=== PATIENT | female | born 1955 | race Caucasian/White ===

== ENCOUNTER 2022-02-11 11:18 | Outpatient (CLI) | payer BC, SELFPAY ==
[2022-02-11 14:20] LABS: C.Difficile Negative (Negative); CDIFFEPI 027 PRESUMPTIVE NEGATIVE (Negative)
--- OUTSIDE RECORDS SUMMARY | 2022-03-05 14:43 | XMS_ITS | Encounter Summary ---
:1955 Author Organization [facility] Address [address] [place] [address] Care Team Providers Name Role Phone Elsewhere, Pcp Primary Care Provider Unavailable Reason for Referral Outpatient (Routine) - Authorized Specialty Diagnoses / Procedures Referred By Contact Refer red To Contact Diagnoses Rhinitis Allergic Rob Mata, [facility] Procedures Northern Skin Test DenisseBSandraBSandraSSandra, Ph.D. [address] [place] [address] Referral ID Status Reason Start Date Expiration Date Visits V isits Requested Authorized [id number] Authorized 02/04/2022 02/04/2023 1 1 utpatient (Routine) - Authorized Specialty Diagnoses / Procedures Referred By Contact Refer red To Contact Diagnoses Rhinitis Allergic Rob Mata [facility] Procedures Basic Skin Test M.BSandraBSandraS., Ph.D. [address] [place] [phone] Referral ID Status Reason Start Date Expiration Date Visits V isits Requested Authorized [id number] Authorized 02/04/2022 02/04/2023 1 1 utpatient (Routine) - Authorized Specialty Diagnoses / Procedures Referred By Contact Refer red To Contact Diagnoses Rhinitis Allergic Rob Mata, [place] Procedures Spirometry Travis, Ph.D. [address] [place] [phone] Referral ID Status Reason Start Date Expiration Date Visits V isits Requested Authorized [id number] Authorized 02/04/2022 02/04/2023 1 1 Reason for Visit Appointment Request (Routine) - Closed Specialty Diagnoses / Procedures Referred By Contact Refer red To Contact Allergy and Immunology Diagnoses Asthma (HCC) Rob Mata M.B.BSandraS., Ph.D. [address] [place] [phone] Referral ID Status Reason Start Date Expiration Date Visits Requ ested Visits Authorized [id number] Closed 01/02/2022 01/02/2023 1 1 Encounter Details Date Type Department Care Team Description 02/04/2022 Telemedicine Division of Allergic Rob Mata, initis Allergic (Primary Dx); Diseases in [place], Travis, Ph.D. Asthma Mild Persistent (HCC) [address] [phone] Social History Tobacco Use Types Packs/Day Years Used Date Smoking Tobacco: Former Cigarettes 0.3 20 12/1973 - 07/28/1995 Smokeless Tobacco: Never Alcohol Use Standard Drinks/Week Comments Yes 0 (1 standard drink = 0.6 oz pure alcoho l) Alcohol Habits Answer Date Recorded How often do you have a drink containing alcohol? Monthly or less 02/04/2022 How many drinks containing alcohol do you have on a 1 or 2 02/04/2022 typical day when you are drinking? How often do you have six or more drinks on one Never 02/04/2022 occasion? Comment: Not asked Social Isolation Answer Date Recorded In a typical week, how many times do you More than three guido es a week 02/04/2022 talk on the phone with family, friends, or neighbors? How often do you get together with friends Twice a week 02/04/2022 or relatives? How often do you attend mosque or More than 4 times per year 02/04/2022 mormonism services? Do you belong to any clubs or Yes 02/04/2022 organizations such as mosque groups, unions, fraEntrisphere or athletic groups, or school groups? How often do you attend meetings of the More than 4 times pe r year 02/04/2022 clubs or organizations you belong to? Are you now , , , 02/04/2022 , never or living with a partner? Physical Activity Answer Date Recorded On average, how many days per week do you engage in moderate to 2 days 02/04/2022 strenuous exercise (like walking fast, running, jogging, dancing, swimming, biking, or other activities that cause a light or heavy sweat)? On average, how many minutes do you engage in exercise at th is 60 min 02/04/2022 level? Stress Answer Date Recorded Do you feel stress - tense, restless, nervous, or Only a lit tle 02/04/2022 anxious, or unable to sleep at night because your mind is troubled all the time - these days? Financial Resource Strain Answer Date Recorded How hard is it for you to pay for the very basics like Not h april at all 02/04/2022 food, housing, medical care, and heating? Intimate Partner Violence Answer Date Recorded Within the last year, have you been afraid of your partner o r No 02/04/2022 ex-partner? Within the last year, have you been humiliated or emotionall y No 02/04/2022 abused in other ways by your partner or ex-partner? Within the last year, have you been kicked, hit, slapped, or No 02/04/2022 otherwise physically hurt by your partner or ex-partner? Within the last year, have you been raped or forced to have any No 02/04/2022 kind of sexual activity by your partner or ex-partner? Food Insecurity Answer Date Recorded Within the past 12 months, you worried that your food would Never true 02/04/2022 run out before you got money to buy more. Within the past 12 months, the food you bought just didn't N ever true 02/04/2022 last and you didn't have money to get more. Transportation Needs Answer Date Recorded In the past 12 months, has lack of transportation kept you f rom No 02/04/2022 medical appointments or from getting medications? In the past 12 months, has lack of transportation kept you f rom No 02/04/2022 meetings, work, or getting things needed for daily living? Housing Stability Answer Date Recorded In the last 12 months, was there a time when you were not ab le No 02/04/2022 to pay the mortgage or rent on time? In the last 12 months, how many places have you lived? 1 02/04/2022 In the last 12 months, was there a time when you did not hav e a No 02/04/[address] or slept in a chcf (including now)? Education Answer Date Recorded What is the highest level of school you have Some college, n o degree 03/09/2019 completed or the highest degree you have received? Sex Assigned at Date Recorded Female 02/04/2022 1:44 PM CDT documented as of this encounter Progress Notes Rob Mata M.B.BSandraS., Ph.D. - 02/04/2022 2:30 PM CDT CC; follow up HPI: Ms. Gonzalez is a very pleasant 66-year-old woman who has been followed by us for allergies andasthma. She was scheduled to see me in person obtain a spirometry today however she has come down with a norovirus infection and therefore this visit was changed to a video visit. Norovirus infection at present. she has 2 grandchildren, who are not sick. She reports no issues over the past year with regards asthma. Last month she had tough time with her allergies, sinus infection and was travelling at the time. [place] she felt better. Sinus infection was set in .She has had skin test done 22 years ago, she was positive for dog, dust mite, horse, mold, walnut and short ragweed. I have seen and discussed with .Ning Gonzalez her visit today. The impression, report, and plan were made in agreement with , and myself. #1 Asthma Mild Persistent (HCC) #2 Rhinitis Allergic - Spirometry; Future; Expected date: 02/04/2022 - Basic Skin Test; Future; Expected date: 02/04/2022 - Northern Skin Test; Future; Expected date: 02/04/2022 Other orders - budesonide-formoteroL (Symbicort) 160-4.5 mcg/actuation inhaler; Inhale 1 puff daily. Rinse mouth with water after use to reduce aftertaste and incidence of candidiasis. Do not swallow., Starting Fri02/04/2022, Normal 1. We discussed the results of her spirometry that where available to us as of last year. I think she would benefit from of new skin test to basic and Northern panel and spirometry which I have reordered. She was supposed to get it done today but she canceled it because of her norovirus infection. 2. We will continue with Symbicort 160-4.51 puff daily, 3. In episodes were she has worsening symptoms especially when she is exposed to respiratory irritants, she can increase the dose of her Symbicort 1 puff 2 times a day. 4. Along with this I recommend that she consider topical saline irrigations, 5. Continue with Flonase 2 sprays in each nostril once a day. 6. Also discussed with her the Rhinix nasal filters which she could implement if she is anticipatingincreased allergen exposure. Duration of visit was 30 minutes. Consult conducted via real-time audio/video technology by Senthil Mercado., Ph.D. in [facility] to the Ms. Gonzalez in [facility] [id number] documented in this encounter Plan of Treatment Scheduled Orders Name Type Priority Associated Diagnoses Order S chedule Spirometry PFT Routine Rhinitis Allergic Expected: 02/04/2022 (Approximate), Expires: 05/07/2023 Basic Skin Test Procedures Routine Rhinitis Allergic Expecte d: 02/04/2022 (Approximate), Expires: 05/07/2023 Northern Skin Test Procedures Routine Rhinitis Allergic Expe cted: 02/04/2022 (Approximate), Expires: 05/07/2023 documented as of this encounter Visit Diagnoses Diagnosis Rhinitis Allergic - Primary Asthma Mild Persistent (HCC) documented in this encounter Care Teams Gas Station Supervisor Relationship Specialty Start Date End Date Elsewhere, Pcp PCP - General Internal Medicine 01/31/22 documented as of this encounter
--- OUTSIDE RECORDS SUMMARY | 2022-03-05 14:43 | XMS_ITS | Clinical Summary ---
:1955 Author Organization [facility] Address [address] [place] [address] Care Team Providers Name Role Phone Elsewhere, Pcp Primary Care Provider Unavailable Source Comments Patient records contain information from all sites at [facility]. For routine questions regarding patient records, call [phone] during business hours, M-F 8:00 AM - 5:00 PM Central Time. Record requests for emergency care only can be directed to [phone] at any time.[facility] Allergies Active Allergy Reactions Severity Noted Date Comments Sulfa (Sulfonamide Antibiotics) Hives 3 Medications Medication Sig Dispensed Refills Start End Date Status Date fexofenadine Take 1 tablet 0 Act rosa (WYATT) 180 mg by mouth daily. 3 tablet olopatadine 1 drop as 0 Active (PATANOL) 0.1 % needed. 3 ophthalmic solution SUMAtriptan Take 50 mg by 0 Acti ve (IMITREX) 50 mg mouth as needed tablet for migraine. May repeat in 2 hours if no relief. Max 2 doses/24 hrs albuterol Inhale as 0 Active (PROVENTIL needed for HFA,VENTOLIN HFA) wheezing. 90 mcg/actuation inhaler nitrofurantoin Take 100 mg by 0 Active monohydrate mouth as 0 (MACROBID) 100 mg directed. capsule albuterol Inhale 1-2 1 Inhaler 11 Active inhalerIndications: puffs every 4 0 Asthma Mild (four) hours as Persistent (HCC) needed for wheezing or shortness of breath. fluticasone INHALE 2 SPRAYS 48 g 3 Ac tive propionate IN EACH NOSTRIL 2 (FLONASE) 50 DAILY mcg/actuation nasal sprayIndications: Rhinitis Allergic budesonide-formoter Inhale 1 puff 30.6 g 3 Active oL (Symbicort) daily. Rinse 2 160-4.5 mouth with mcg/actuation water after use inhalerIndications: to reduce Asthma Mild aftertaste and Persistent (HCC), incidence of Rhinitis Allergic candidiasis. Do not swallow. estradiol 0 02/01/20 Discontinu ed (VIVELLE-DOT) 0.075 9 22 mg/24 hr patch progesterone 0 02/01/20 Discont inued (PROMETRIUM) 100 mg 9 22 capsule ciprofloxacin Take 500 mg by 0 02/01/20 D iscontinued (CIPRO) 500 mg mouth as 0 22 tablet directed. fluticasone Inhale 2 puffs 3 Inhaler 3 02/01/20 Dis continued propionate (Flovent 2 (two) times a 1 22 HFA) 110 day. Rinse mcg/actuation mouth with inhalerIndications: water after use Asthma Chronic to reduce (HCC) aftertaste and incidence of candidiasis. Do not swallow. Symbicort 160-4.5 INHALE 1 PUFF 30.6 g 3 02/05/20 Discontinued mcg/actuation BY MOUTH DAILY. 1 22 (Reorder) inhalerIndications: RINSE MOUTH Asthma Mild WITH WATER Persistent (HCC) AFTER. DO NOT SWALLOW Active Problems Problem Noted Date Asthma Intrinsic 11/18/2008 Overview: Asthma Non Allergic Intrinsic Encounters Date Type Specialty Care Team Description 02/04/2022 Telemedicine Allergy and [facility], Rhinitis Allerg ic (Primary Dx); Immunology Rob D, Asthma Mild Per sistent (HCC) Travis, Ph.D. 01/31/2022 Clinical Communication Admitting/Central Pre-visit Intake Scheduling 01/31/2022 Lab Laboratory [facility], Encounter For P reprocedural Laboratory Examination (COVID-19); Medicine Rob Alfaro, Contact With An d (Suspected) Exposure To COVID-19 Travis, Ph.D. 01/02/2022 Clinical Communication Allergy and [facility], Pre-v isit Testing Immunology Rob Alfaro, Orders MBarbara, Ph.D. 01/02/2022 Refill Allergy and [facility], Med Refill Immunology Rob Alfaro, M.B.B.S., Ph.D. from Last 3 Months Immunizations Name Administration Dates Next Due YF, Unspecified 07/29/2008 Family History Medical History Relation Name Comments Asthma Father kina montero Coronary artery disease Father kina montero Rheum arthritis Father kina montero Anesthesia problems Mother jelani cole Colon polyps Mother jelani cole Hyperlipidemia Mother jelani cole Colon cancer Mother's Brother patricia gilliam ADD Son daria gonzalez Relation Name Status Comments Father ikna montero Mother jelani cole Mother's Brother patricia gilliam Son daria gonzalez Social History Tobacco Use Types Packs/Day Years [...] or relatives? How often do you attend sabianism or More than 4 times per year 02/04/2022 mandaen services? Do you belong to any clubs or Yes 02/04/2022 organizations such as sabianism groups, unions, fraternal or athletic groups, or school groups? How [...] minutes do you engage in exercise at is 60 min 02/04/2022 level? Stress Answer [...] place to sleep or slept in a snf (including now)? Education Answer Date Recorded What is the highest level of school you have Some college, n o degree 03/09/2019 completed or the highest degree you have received? Sex Assigned at Date Recorded Female 02/04/2022 1:44 PM CDT Last Filed Vital Signs Vital Sign Reading Time Taken Comments Blood Pressure 112/72 03/09/2019 9:45 AM CDT Pulse 81 03/09/2019 9:45 AM CDT Temperature 36.9 ??C (98.4 ??F) 02/06/2021 2:29 PM CDT Respiratory Rate - - Oxygen Saturation - - Inhaled Oxygen Concentration - - Weight 66.3 kg (146 lb 2.6 oz) 02/06/2021 1:48 PM CDT Height 158.9 cm (5' 2.56) 02/06/2021 1:48 PM CDT Body Mass Index 26.26 02/06/2021 1:48 PM CDT Plan of Treatment Health Maintenance Due Date Last Done Comments CT Colonography 1955 Cervical Cancer Screening 1955 Cologuard 1955 Colonoscopy 1955 Colorectal Cancer Surveillance 1955 Fasting Glucose for Diabetes 1955 Screening Fasting Lipid Panel 1955 HIV Screening 1955 Hepatitis C Screening 1955 Mammogram 1955 Pneumococcal vaccine (0-64 years) 10/16/1963 (1 - PCV) Zoster Vaccines (1 of 2) 10/16/2007 DTaP,Tdap,and Td Vaccines (2 - Td 04/09/2021 04/09/2011, or Tdap) Depression Screening (Annual 07/28/2021 PHQ-2) Influenza Vaccine (#1) 2022 05/10/2021, 05/09/2020, 07/15/2019, Additional history exists COVID-19 Vaccine Completed 11/06/2021, 05/28/2021, 10/31/2020, Additional history exists Procedures Procedure Name Priority Date/Time Associated Diagnosis Comme nts SARS COV-2 RNA, Routine 01/31/2022 2:56 PM Encounter For Resul ts for this PCR, VARIES CDT Preprocedural procedure are in Laboratory Examination the r esults (COVID-19) section. Contact With And (Suspected) Exposure To COVID-19 from Last 3 Months Results SARS CoV-2 RNA, PCR, Varies Asymptomatic (01/31/2022 2:56 PM CDT) [facility] Method Time Signature SARS CoV-2 Swab, 01/31/2022 DTL RNA, PCR, Nasopharynx 6:50 PM CDT Source SARS CoV-2 Undetected Undetected 01/31/2022 DTL RNA, PCR 6:50 PM CDT Comment: SARS-CoV-2 RNA absent. This result does not rule out COVID-19 in the patient, as the sensitivity of the test depends o n the timing of the specimen collection and quality of the specimen. Result should be correlated with patient's history and clinical presentat ion. ----ADDITIONAL INFORMATION---- This RT-PCR test has received Emergency Use Authorization (EUA) by the U.S. Food and Drug Administration an d is used per assembler surgical garment's instructions. Performance characteristics were verified by [facility] in a manner consistent with CLIA requirements. Visit the CDC website: https://www.cdc.g ov/coronavirus/ for the most recent guidelines on Coron avirus testing. Fact Sheet for Healthcare Providers: https://www.fda.gov/media/309023/downloa d Fact Sheet for Patients: https://www.fda.gov/media/548110/downloa d Specimen Anatomical Collection Method Collection Time Receive d Time (Source) Location / / Volume Laterality Varies 01/31/2022 2:56 PM 2 3:11 (Nasopharynx) CDT PM CDT Rob Ndiaye., Ph.D. LAB MICROBIOLOGY - GEN ERAL ORDERABLES Performing Organization Address City/State/ZIP Code Phon e Number [facility] - [address] [place], [place] [address] [facility] [place] [address] Formerly [facility] [address] from Last 3 Months Insurance Payer Benefit Plan Subscriber ID Effective Dates Phone Address Type / Group [employer] [employer] [place] [id number] 2020-[place] [phone] [address] [address] PPO [facility] [address] [place] [address] Care Teams Bird Raiser Relationship Specialty Start Date End Date Elsewhere, Pcp PCP - General Internal Medicine 01/31/22
--- OUTSIDE RECORDS SUMMARY | 2022-03-05 14:44 | XMS_ITS | Encounter Summary ---
:1955 Author Organization [facility] Address [address] [place] [address] Care Team Providers Name Role Phone Unavailable Primary Care Provider Unavailable Reason for Visit Reason Comments Med Refill Encounter Details Date Type Department Care Team Description 02/24/2021 Refill Division of Allergic Diseases Radha Mata, Med Refill in [facility] bart Robles, Ph.D. [address] [facility] [address] [place] [phone] [place] [address] [phone] (Wo rk) Social History Tobacco Use Types Packs/Day Years [...] or relatives? How often do you attend baptist or More than 4 times per year 02/04/2022 voodoo services? Do you belong to any clubs or Yes 02/04/2022 organizations such as baptist groups, unions, fraternal or athletic groups, or [...] place to sleep or slept in a m[facility]p (including now)? Education Answer Date Recorded What is the highest level of school you have Some college, n o degree 03/09/2019 completed or the highest degree you have received? Sex Assigned at Date Recorded Female 02/04/2022 1:44 PM CDT documented as of this encounter Plan of Treatment Not on filedocumented as of this encounter Visit Diagnoses Diagnosis Asthma Mild Persistent (HCC) documented in this encounter
--- OUTSIDE RECORDS SUMMARY | 2022-03-05 14:44 | XMS_ITS | Encounter Summary ---
:1955 Author Organization [facility] Address [address] [place] [address] Care Team Providers Name Role Phone Unavailable Primary Care Provider Unavailable Reason for Visit Outpatient (Routine) - Closed Specialty Diagnoses / Procedures Referred By Contact Refer red To Contact Allergy and Immunology Diagnoses Asthma Mild Persistent (HCC) [facility] [address] [place] [address] Referral ID Status Reason Start Date Expiration Date Visits Requ ested Visits Authorized [id number] Closed 03/09/2019 03/08/2020 1 1 Encounter Details Date Type Department Care Team Description 02/14/2020 Office Visit Division of Allergic Rob Mata, initis Allergic (Primary Dx); Diseases in [facility] M.B.B.S., Ph.D. Asthma Mild Persistent (HCC) [place] [address] [facility] [address] [place] [phone] Social History Tobacco Use Types Packs/Day Years [...] or relatives? How often do you attend yazidism or More than 4 times per year 02/04/2022 cheondoism services? Do you belong to any clubs or Yes 02/04/2022 organizations such as yazidism groups, unions, fraternal or athletic groups, or [...] place to sleep or slept in a [place] [facility] (including now)? Education Answer Date Recorded What is the highest level of school you have Some college, n o degree 03/09/2019 completed or the highest degree you have received? Sex Assigned at Date Recorded Female 02/04/2022 1:44 PM CDT documented as of this encounter Last Filed Vital Signs Vital Sign Reading Time Taken Comments Blood Pressure - - Pulse - - Temperature 36.5 ??C (97.7 ??F) 02/14/2020 2:04 PM CDT Respiratory Rate - - Oxygen Saturation - - Inhaled Oxygen Concentration - - Weight 65 kg (143 lb 4.8 oz) 02/14/2020 2:04 PM CDT Height 160 cm (5' 2.99) 02/14/2020 2:04 PM CDT Body Mass Index 25.39 02/14/2020 2:04 PM CDT documented in this encounter Patient Instructions Patient InstructionsRob Mata, M.B.B.S., Ph.D. - 02/14/2020 2:30 PM CDT 1. ACT is 25, spirometry is good. Continue with current regimen 2. Symbicort 160-4.5 ug, one puff daily, can increase to two times a day if and when needed. 3. Albuterol as needed for rescue 2 puffs every 4-6 hours 4. Albuterol 2 puffs 30 minutes prior to rigorous exercise. 5. Saline nasal irrigations daily in allergy seasons (fall and spring) 6. Flonase 2 sprays each nostril daily in allergy season. 7. check with her PCP for pneumonia vaccine series 8. Yearly influenza seasonal vaccine 9. Continue with Calcium and Vitamin D (400 U), daily supplementation 10. Will consider step down to steroid inhalers only at next visit if continues to be stable. At this time due to covid-19 pandemic we will stay the course. documented in this encounter H&P Notes Rob Mata M.B.B.S., Ph.D. - 02/14/2020 2:30 PM CDT Ms.Roseanne Shabana Gonzalez Is 64 y.o. female who presents to the Division of Allergic Diseases for asthma follow up/ . She has been referred by Rob Mata M.B.BSandraS., Ph.D. [address] [place] [phone] HPI: Here for asthma follow-up. Doing quite well. Has been using Symbicort 160- 4.51 puff once a day.There was the brief time earlier this year when she had a worsening of her respiratory symptoms withtightness. She used her albuterol as rescue and that resolved promptly. She was able to travel to [place] to visit her parents and good to know that they are doing well as well. I did discuss with her the results of her COVID-19 testing including the PCR as well as the serology. They are both negative. Also discussed with her the results of her pulmonary function testing. Allergies Allergen Reactions ??? Sulfa (Sulfonamide Antibiotics) Hives Current Outpatient Medications: ??? albuterol (PROVENTIL HFA,VENTOLIN HFA) 90 mcg/actuation inhaler, Inhale as needed for wheezing.,Disp: , Rfl: ??? albuterol inhaler, Inhale 1-2 puffs every 4 (four) hours as needed for wheezing or shortness of breath., Disp: 1 Inhaler, Rfl: 11 ??? budesonide-formoteroL (SYMBICORT) 160-4.5 mcg/actuation inhaler, Inhale 1 puff daily. Rinse mouth with water after use. Use spacer. Do not swallow., Disp: 3 Inhaler, Rfl: 3 ??? estradiol (VIVELLE-DOT) 0.075 mg/24 hr patch, , Disp: , Rfl: ??? fexofenadine (WYATT ALLERGY) 180 mg tablet, Take 1 tablet by mouth daily., Disp: , Rfl: ??? fluticasone propionate (Flonase Allergy Relief) 50 mcg/actuation nasal spray, Administer 2 sprays into each nostril daily., Disp: 3 Bottle, Rfl: 2 ??? nitrofurantoin monohydrate (MACROBID) 100 mg capsule, Take 100 mg by mouth as directed., Disp: ,Rfl: ??? olopatadine (PATANOL) 0.1 % ophthalmic solution, 1 drop as needed., Disp: , Rfl: ??? progesterone (PROMETRIUM) 100 mg capsule, , Disp: , Rfl: ??? SUMAtriptan (IMITREX) 50 mg tablet, Take 50 mg by mouth as needed for migraine. May repeat in 2 hours if no relief. Max 2 doses/24 hrs, Disp: , Rfl: ??? budesonide (PULMICORT FLEXHALER) 180 mcg/actuation inhaler, Inhale 1 puff every evening., Disp: , Rfl: ??? ciprofloxacin (CIPRO) 500 mg tablet, Take 500 mg by mouth as directed., Disp: , Rfl: Past Medical History: Diagnosis Date ??? Asthma NOS ??? Gallbladder Disorder ??? Gastroesophageal Reflux Disease NOS ??? Migraine Headache ??? Polyp Colon Past Surgical History: Procedure Laterality Date ??? APPENDECTOMY 2001 ??? DILATATION AND CURETTAGE 1983 ??? GALLBLADDER SURGERY 2003 ??? TUBAL LIGATION 1993 ROS: as per the HPI EXAM: General Appearance: Alert, cooperative, no distress, appears stated age Head: Normocephalic, without obvious abnormality, atraumatic Eyes: Extraocular movements intact IMPRESSION #1 Asthma Mild Persistent (HCC) #2 Rhinitis Allergic PLAN #1 Asthma Mild Persistent (HCC) - Allergy and Immunology office visit (clinic) - albuterol inhaler; Inhale 1-2 puffs every 4 (four) hours as needed for wheezing or shortness of breath., Starting Fri02/14/2020, Normal - budesonide-formoteroL (SYMBICORT) 160-4.5 mcg/actuation inhaler; Inhale 1 puff daily. Rinse mouth with water after use. Use spacer. Do not swallow., Starting Fri02/14/2020, Normal #2 Rhinitis Allergic - fluticasone propionate (Flonase Allergy Relief) 50 mcg/actuation nasal spray; Administer 2 sprays into each nostril daily., Starting Fri02/14/2020, Normal 1. ACT is 25, pulmonary function test is good. Continue with current regimen 2. Symbicort 160-4.5 ug, one puff daily, can increase to two times a day if and when needed. 3. Albuterol as needed for rescue 2 puffs every 4-6 hours 4. Albuterol 2 puffs 30 minutes prior to rigorous exercise. 5. Saline nasal irrigations daily in allergy seasons (fall and spring) 6. Flonase 2 sprays each nostril daily in allergy season. 7. check with her PCP for pneumonia vaccine series 8. Yearly influenza seasonal vaccine 9. Continue with Calcium and Vitamin D (400 U), daily supplementation 10. Will consider step down to steroid inhalers only at next visit if continues to be stable. At this time due to covid-19 pandemic we will stay the course. Informed consent We discussed the risks and benefits of the recommendations offered by me today including the rationale for those recommendations. There were no perceived barriers to communication and she verbalized excellent understanding of our discussion. All questions were answered to her satisfaction, and is encouraged access to patient online portal to revise and review discussion and follow up on test results. seemed satisfied with visit today and thanked me for the time spent explaining the issues and had no further questions. SIGNATURE: Travis Mercado, Ph.D. CC: Rob Mata M.B.B.S., Ph.D. documented in this encounter Plan of Treatment Not on filedocumented as of this encounter Visit Diagnoses Diagnosis Rhinitis Allergic - Primary Asthma Mild Persistent (HCC) documented in this encounter
--- OUTSIDE RECORDS SUMMARY | 2022-03-05 14:44 | XMS_ITS | Encounter Summary ---
:1955 Author Organization [facility] Address [address] [place] [address] Care Team Providers Name Role Phone Unavailable Primary Care Provider Unavailable Encounter Details Date Type Department Care Team Description 03/09/2019 Orders Only Division of Allergic David Santana Diseases in [place], [address] [place], [place] [address] [facility] [phone] [place] [phone] Social History Tobacco Use Types Packs/Day Years [...] or relatives? How often do you attend gnosticist or More than 4 times per year 02/04/2022 jehovah's witness services? Do you belong to any clubs or Yes 02/04/2022 organizations such as gnosticist groups, unions, fraternal or athletic groups, or [...] place to sleep or slept in a half-way (including now)? Education Answer Date Recorded What is the highest level of school you have Some college, n o degree 03/09/2019 completed or the highest degree you have received? Sex Assigned at Date Recorded Female 02/04/2022 1:44 PM CDT documented as of this encounter Plan of Treatment Not on filedocumented as of this encounter Visit Diagnoses Not on filedocumented in this encounter
--- OUTSIDE RECORDS SUMMARY | 2022-03-05 14:44 | XMS_ITS | Encounter Summary ---
:1955 Author Organization [facility] Address [address] [place] [phone] Care Team Providers Name Role Phone Unavailable Primary Care Provider Unavailable Encounter Details Date Type Department Care Team Description 03/09/2019 Education Division of Allergic DivekarRadha M.B.B.S., Ph.D. [address] [place] [phone] Asthma Mild Persistent Diseases in [place], [facility] [address] [place] [phone] ([facility]) [place] [address] [place] [phone] Social History Tobacco Use Types Packs/Day Years [...] or relatives? How often do you attend hoahaoism or More than 4 times per year 02/04/2022 congregational services? Do you belong to any clubs or Yes 02/04/2022 organizations such as hoahaoism groups, unions, fraternal or athletic groups, or [...]
--- OUTSIDE RECORDS SUMMARY | 2022-03-05 14:44 | XMS_ITS | Encounter Summary ---
:1955 Author Organization [facility] Address [address] [place] [address] Care Team Providers Name Role Phone Elsewhere, Pcp Primary Care Provider Unavailable Reason for Visit Reason Comments Pre-visit Intake Encounter Details Date Type Department Care Team Description 01/31/2022 Clinical Communication Visit Review in Pr e-visit Intake [place], [place] [address] [place], [place] [phone] Social History Tobacco Use Types Packs/Day Years [...] or relatives? How often do you attend scientologist or More than 4 times per year 02/04/2022 amish services? Do you belong to any clubs or Yes 02/04/2022 organizations such as scientologist groups, unions, fraternal or athletic groups, or [...] place to sleep or slept in a long term (including now)? Education Answer Date Recorded What is the highest level of school you have Some college, n o degree 03/09/2019 completed or the highest degree you have received? Sex Assigned at Date Recorded Female 02/04/2022 1:44 PM CDT documented as of this encounter Plan of Treatment Not on filedocumented as of this encounter Visit Diagnoses Not on filedocumented in this encounter Additional Health Concerns Infection Onset Date Last Indicated Resolved Time COVID19 Pending 01/31/2022 01/31/2022 01/31/2022 6:50 PM CDT documented as of this encounter Care Teams Recycling Specialist Relationship Specialty Start Date End Date Elsewhere, Pcp PCP - General Internal Medicine 01/31/22 documented as of this encounter
--- OUTSIDE RECORDS SUMMARY | 2022-03-05 14:44 | XMS_ITS | Encounter Summary ---
:1955 Author Organization [facility] Address [address] [place] [address] Care Team Providers Name Role Phone Unavailable Primary Care Provider Unavailable Reason for Visit Reason Onset Date Comments Triage Approved 12/08/2018 Asthma (HCC) [J45.9 09];Allergy Initial [T78.40XA] Encounter Details Date Type Department Care Team Description 12/08/2018 Clinical Communication Division of Rob Ordoñez age Approved ( Allergic Diseases D, M.B.B.S., Asthma (HC C) in [place], Ph.D. [J45.909];Allergy [place] [address] [facility] Initial [T78.40XA]) [address] [place] [phone] Social History Tobacco Use Types Packs/Day Years Used Date Smoking Tobacco: Unknown Alcohol Habits Answer Date Recorded How often [...] or relatives? How often do you attend gnosticism or More than 4 times per year 02/04/2022 methodist services? Do you belong to any clubs or Yes 02/04/2022 organizations such as gnosticism groups, unions, fraternal or athletic groups, or [...] or slept in a [facility] (including now)? Sex Assigned at Date Recorded Female 02/04/2022 1:44 PM CDT documented as of this encounter Miscellaneous Notes Addendum Note - Rob Ordoñez, M.B.B.S., Ph.D. - 01/11/2019 11:17 AM CDT Addended by: ROB ORDOÑEZ on: 01/11/2019 11:17 AM Modules accepted: Orders Telephone Encounter - Carri Flores RGricelda - 01/07/2019 8:13 AM CDT SUBJECTIVE ?? CHIEF COMPLAINT / REASON FOR CALL Communication (NEWX) ? HISTORY OF PRESENT ILLNESS Ning Gonzalez was called to gather additional information in preparation for upcoming appointment with Dr. Rob Ordoñez on March 09, 2019. The goal of the phone call was to obtain the following information: 1. Purpose/goal of visit 2. Top 3 allergy concerns 3. Previous evaluation by grape cutter 4. Previous Hospitalizations 5. Previous workup 6. Medications ?? ASSESSMENT / PLAN ?? Purpose/Goals for visit: Patient has recently moved back to [place] and would like to establish care for her asthma and allergies. She has been doing well over the last year and has not had any significant flares. She has not had pulmonary function testing in a number of years. Top allergy concern: 1. Evaluation and management of her asthma and allergies Other multisystem concerns including non-allergy concerns: No Previous evaluation by grape cutter Has the patient been evaluated by an grape cutter? No Previous Hospitalizations: No hospitalizations or ED visits Previous workup: Greater than 5 years ago was seen by Dr. Bradford Medications: Fexofenadine Fluticasone nasal spray Symbicort albuterol Disposition/Recommendation: provider notified and awaiting provider recommendations Education: patient/caller able to teach back Caller agreeable to plan of care: yes The following references were used: nursing clinical judgement and provider Dr. Ordoñez Telephone Encounter - Deonna Cardona - 12/14/2018 10:05 AM CDT Patient is scheduoled for 03/09 Dr. Ordoñez 10am. Telephone Encounter - Yusra Wren - 12/08/2018 9:22 AM CDT Message: A. Triage approved B. Indications: Asthma (HCC) [J45.909];Allergy Initial [T78.40XA] C. Triage provider suggestions: Spirometry with bronchodilator D. Outside records: Outside records availabe at the check out desk E. Scheduling instructions: 1. Schedule in the following visit type: NEWX plus RXN 2. Specific Provider Only: Dr. Yvon Bradford-Old pt of Dr. Bradford requesting to see him again - If nothing available can be with anyone Created by documented in this encounter Plan of Treatment Not on filedocumented as of this encounter Results Spirometry (03/09/2019 8:24 AM CDT) P athologist Signature VC MAX POST 2.80 L 03/24/2019 [facility] 9:43 AM CDT SUITE PostFVC 2.73 L 03/24/2019 [facility] 9:43 AM CDT SUITE PostFEV1 2.09 L 03/24/2019 [facility] 9:43 AM CDT SUITE FEV1/FVC POST 76.62 % 03/24/2019 [facility] 9:43 AM CDT SUITE FEF 25-75 % 1.71 L/s 03/24/2019 [facility] 9:43 AM CDT SUITE PEF POST 6.98 L/s 03/24/2019 [facility] 9:43 AM CDT SUITE FET POST 11.95 sec 03/24/2019 [facility] 9:43 AM CDT SUITE VC MAX PRE 2.60 L 03/24/2019 [facility] 9:43 AM CDT SUITE FVC 2.59 L 03/24/2019 [facility] 9:43 AM CDT SUITE FEV1 2.02 L 03/24/2019 [facility] 9:43 AM CDT SUITE FEV1/FVC 77.83 % 03/24/2019 [facility] 9:43 AM CDT SUITE WUF35-44% 1.72 L/s 03/24/2019 [facility] 9:43 AM CDT SUITE PEF PRE 7.09 L/s 03/24/2019 [facility] 9:43 AM CDT SUITE FET PRE 11.41 sec 03/24/2019 [facility] 9:43 AM CDT SUITE SUBSTANCE POST NaN 03/24/2019 [facility] 9:43 AM CDT SUITE DOSE POST NaN 03/24/2019 [facility] 9:43 AM CDT SUITE % PRED VC MAX 86.34 % 03/24/2019 [facility] 9:43 AM CDT SUITE FVC% 85.87 % 03/24/2019 [facility] 9:43 AM CDT SUITE FEV1% 84.77 % 03/24/2019 [facility] 9:43 AM CDT SUITE % PRED 98.13 % 03/24/2019 [facility] FEV1/FVC 9:43 AM CDT SUITE % PRED FEF 79.59 % 03/24/2019 [facility] 25-75% 9:43 AM CDT SUITE % PRED PEF 127.06 % 03/24/2019 [facility] 9:43 AM CDT SUITE PRED VC MAX 3.01 L 03/24/2019 [facility] 9:43 AM CDT SUITE PRED FVC 3.02 L 03/24/2019 [facility] 9:43 AM CDT SUITE PRED FEV 1 2.38 L 03/24/2019 [facility] 9:43 AM CDT SUITE PRED FEV1/FVC 79.31 % 03/24/2019 [facility] 9:43 AM CDT SUITE PRED FEF 2.17 L/s 03/24/2019 [facility] 25-75% 9:43 AM CDT SUITE PRED PEF 5.58 L/s 03/24/2019 [facility] 9:43 AM CDT SUITE Specimen (Source) Anatomical Collection Method Collection Time Re ceived Time Location / / Volume Laterality 03/09/2019 8:24 AM CDT Narrative This result has an attachment that is no t available. Rob Robles, Ph.D. PFT ORDERABLES Performing Organization Address City/State/ZIP Code Phon e Number [facility] [address] documented in this encounter Visit Diagnoses Diagnosis Wheezing - Primary documented in this encounter
--- OUTSIDE RECORDS SUMMARY | 2022-03-05 14:44 | XMS_ITS | Encounter Summary ---
:1955 Author Organization [facility] Address [address] [place] [address] Care Team Providers Name Role Phone Unavailable Primary Care Provider Unavailable Reason for Referral Outpatient (Routine) - Closed Specialty Diagnoses / Procedures Referred By Contact Refer red To Contact Diagnoses Asthma Chronic (HCC) Rob Mata, [facility] Procedures ALI Exhaled Nitric Oxide EnriqueBKarely, Ph.D. [address] [place] [address] Referral ID Status Reason Start Date Expiration Date Visits Requ ested Visits Authorized [id number] Closed 02/06/2021 02/06/2022 1 1 Reason for Visit Appointment Request (Routine) - Closed Specialty Diagnoses / Procedures Referred By Contact Refer red To Contact Allergy and Immunology Diagnoses Asthma (HCC) Referral ID Status Reason Start Date Expiration Date Visits Requ ested Visits Authorized [id number] Closed 11/21/2020 11/21/2021 1 1 Encounter Details Date Type Department Care Team Description 02/06/2021 Office Visit Division of Allergic Rob Mata, As thma Chronic (HCC) Diseases in [place], EnriqueBKarely, Ph.D. (Primary Dx) [address] [place] [phone] Social History Tobacco Use Types Packs/Day Years [...] or relatives? How often do you attend quaker or More than 4 times per year 02/04/2022 evangelical services? Do you belong to any clubs or Yes 02/04/2022 organizations such as quaker groups, unions, fraternal or athletic groups, or [...] place to sleep or slept in a intermediate (including now)? Education Answer Date Recorded What is the highest level of school you have Some college, n o degree 03/09/2019 completed or the highest degree you have received? Sex Assigned at Date Recorded Female 02/04/2022 1:44 PM CDT documented as of this encounter Last Filed Vital Signs Vital Sign Reading Time Taken Comments Blood Pressure - - Pulse - - Temperature 36.9 ??C (98.4 ??F) 02/06/2021 2:29 PM CDT Respiratory Rate - - Oxygen Saturation - - Inhaled Oxygen Concentration - - Weight 66.3 kg (146 lb 2.6 oz) 02/06/2021 1:48 PM CDT Height 158.9 cm (5' 2.56) 02/06/2021 1:48 PM CDT Body Mass Index 26.26 02/06/2021 1:48 PM CDT documented in this encounter H&P Notes Rob Mata M.B.B.S., Ph.D. - 02/06/2021 2:30 PM CDT Ms.Roseanne Shabana Gonzalez is65 y.o. female who presents to the Division of Allergic Diseases for asthma follow up. She has been referred by HPI: SUBJECTIVE Here for followup of asthma. The patient has been previously diagnosed with asthma. Symptoms have previously included dyspnea, non-productive cough and wheezing. Associated symptoms includewheezing. ACT > 20 , she has done well. She has had one episode of using the asthma inhaler rescue. Current treatment includes Albuterol and Symbicort, She has a history of GERD which has been treated with symptomatic management. She reports heart burn at night on rare occasional Allergies Allergen Reactions ??? Sulfa (Sulfonamide Antibiotics) [...] swallow., Disp: 3 Inhaler, Rfl: 3 ??? ciprofloxacin (CIPRO) 500 mg tablet, Take 500 mg by mouth as directed., Disp: , Rfl: ??? estradiol (VIVELLE-DOT) 0.075 mg/24 hr patch, [...] Max 2 doses/24 hrs, Disp: , Rfl: Past Medical History: Diagnosis [...] Eyes: Extraocular movements intact IMPRESSION #1 Asthma Chronic (HCC) PLAN #1 Asthma Chronic (HCC) - ALI Exhaled Nitric Oxide; Future; Expected date: 02/06/2021 1. She is doing very well at the moment. A CT score is more than 20. She is continue with a daily inhaler. However I think this is a good opportunity to deescalate her care. I will obtain an exhaled nitric oxide to see if her yellow is controlled, and the next step would be to either cut the dose of her combination inhaler by half or to put her on a inhaled corticosteroid only inhaler. 2. I discussed the results of the spirometry with her the look good. She has an overall well last year will continue with the asthma management plan. 3. Informed consent We discussed the risks and [...] further questions. SIGNATURE: Travis Mercado, Ph.D. CC: No ref. provider found documented in this encounter Plan of Treatment Not on filedocumented as of this encounter Results ALI Exhaled Nitric Oxide (02/06/2021 3:29 PM CDT) Specimen (Source) Anatomical Location Collection Method / Collectio n Time Received Time / Laterality Volume Narrative [facility] - 02/06/2021 3:29 PM CDT Allergy - Exhaled Nitric Oxide Test Result: Oral 34 parts per billion Number of maneuvers: 3 Patient has refrained from food, beverag es, toothpaste, mouthwash, bronchodilators and strenuous activity f or 2 hours prior to test: no, patient reports she had Albuterol approx imately around 1400. However, patient reports she has refained from al l other items listed. Patient has refrained from smoking for a t least one hour prior to test: n/a, patient reports she does not smoke. Rob Robles, Ph.D. PROCEDURE/MINOR SURGIC AL ORDERABLES Performing Organization Address City/State/ZIP Code Phon e Number [facility] NA documented in this encounter Visit Diagnoses Diagnosis Asthma Chronic (HCC) - Primary Asthma Chronic (HCC) documented in this encounter
--- OUTSIDE RECORDS SUMMARY | 2022-03-05 14:44 | XMS_ITS | Encounter Summary ---
:1955 Author Organization [facility] Address [address] [place] [address] Care Team Providers Name Role Phone Unavailable Primary Care Provider Unavailable Reason for Visit Reason Comments COVID Nurse Line Encounter Details Date Type Department Care Team Description 01/31/2020 Clinical Communication Division of Allergic Divekar, R ohit COVID Nurse Line Diseases in D, Britney.B.S., [place], [place] Ph.D. [address] [facility] [address] [place] [phone] Social History Tobacco Use Types Packs/Day Years [...] or relatives? How often do you attend baptism or More than 4 times per year 02/04/2022 evangelical services? Do you belong to any clubs or Yes 02/04/2022 organizations such as baptism groups, unions, fraternal or athletic groups, or [...] place to sleep or slept in a usp (including now)? Education Answer Date Recorded What is the highest level of school you have Some college, n o degree 03/09/2019 completed or the highest degree you have received? Sex Assigned at Date Recorded Female 02/04/2022 1:44 PM CDT documented as of this encounter Miscellaneous Notes Telephone Encounter - Ruth Vieyra - 01/31/2020 1:56 PM CDT ([facility] and [facility] locations only: If the patient is not having symptoms and is requesting COVID-19 Nasal Swab testing only, use the process listed in the COVID-19 Patient Requesting COVID PCR Test OTG COVID-19 [place] Patient Requesting COVID PCR Test). In the past 30 days have you had a swab for COVID that tested positive? no Route reply to: MADDIE VYAS SCHEDULING Scheduling Contact Number: [phone] documented in this encounter Plan of Treatment Not on filedocumented as of this encounter Visit Diagnoses Not on filedocumented in this encounter
--- OUTSIDE RECORDS SUMMARY | 2022-03-05 14:44 | XMS_ITS | Encounter Summary ---
:1955 Author Organization [facility] Address [address] [place] [address] Care Team Providers Name Role Phone Unavailable Primary Care Provider Unavailable Reason for Visit Reason Comments Allergy Testing FVC/BD Encounter Details Date Type Department Care Team Description 03/09/2019 Clinical Support Division of Allergic DivtriniarBri M.B.B.S., Ph.D. [address] [place] [phone] Asthma Intrinsic (HCC); Diseases in Adilene Hull R.N. [address] [place] [phone] [place], [place] [address] [place] [phone] Social History Tobacco Use Types Packs/Day Years [...] or relatives? How often do you attend orthodoxy or More than 4 times per year 02/04/2022 mormon services? Do you belong to any clubs or Yes 02/04/2022 organizations such as orthodoxy groups, unions, fraternal or athletic groups, or [...] place to sleep or slept in a detention (including now)? Education Answer Date Recorded What is the highest level of school you have Some college, n o degree 03/09/2019 completed or the highest degree you have received? Sex Assigned at Date Recorded Female 02/04/2022 1:44 PM CDT documented as of this encounter Plan of Treatment Not on filedocumented as of this encounter Procedures Procedure Name Priority Date/Time Associated Comments Diagnosis OK BRONCHODILATION Routine 03/09/2019 8:24 Wheezing Result s for this RESPONSIVENESS AM CDT procedure are in the results section. documented in this encounter Results Spirometry (03/09/2019 8:24 AM CDT) P athologist Signature VC MAX POST 2.80 L 03/24/2019 [facility] 9:43 AM CDT SUITE PostFVC 2.73 L 03/24/2019 [facility] 9:43 AM CDT SUITE PostFEV1 2.09 L 03/24/2019 [facility] 9:43 AM CDT SUITE FEV1/FVC POST 76.62 % 03/24/2019 [facility] 9:43 AM CDT SUITE FEF 25-75 % 1.71 L/s 03/24/2019 [facility] POST 9:43 AM CDT SUITE PEF POST 6.98 L/s 03/24/2019 [facility] 9:43 AM CDT SUITE FET POST 11.95 sec 03/24/2019 [facility] 9:43 AM CDT SUITE VC MAX PRE 2.60 L 03/24/2019 [facility] 9:43 AM CDT SUITE FVC 2.59 L 03/24/2019 [facility] 9:43 AM CDT SUITE FEV1 2.02 L 03/24/2019 [facility] 9:43 AM CDT SUITE FEV1/FVC 77.83 % 03/24/2019 [facility] 9:43 AM CDT SUITE DZY19-48% 1.72 L/s 03/24/2019 [facility] 9:43 AM CDT SUITE PEF PRE 7.09 L/s 03/24/2019 [facility] 9:43 AM CDT SUITE FET PRE 11.41 sec 03/24/2019 [facility] 9:43 AM CDT SUITE SUBSTANCE POST NaN 03/24/2019 [facility] 9:43 AM CDT SUITE DOSE POST NaN 03/24/2019 [facility] 9:43 AM CDT SUITE % PRED VC MAX 86.34 % 03/24/2019 [facility] 9:43 AM CDT SUITE FVC% 85.87 % 03/24/2019 [facility] 9:43 AM CDT SUITE FEV1% 84.77 % 03/24/2019 [facility] 9:43 AM CDT SUITE % PRED 98.13 % 03/24/2019 [facility] FEV1/FVC 9:43 AM CDT SUITE % PRED FEF 79.59 % 03/24/2019 [facility] 25-75% 9:43 AM CDT SUITE % PRED PEF 127.06 % 03/24/2019 [facility] 9:43 AM CDT SUITE PRED VC MAX 3.01 L 03/24/2019 [facility] 9:43 AM CDT SUITE PRED FVC 3.02 L 03/24/2019 [facility] 9:43 AM CDT SUITE PRED FEV 1 2.38 L 03/24/2019 [facility] 9:43 AM CDT SUITE PRED FEV1/FVC 79.31 % 03/24/2019 [facility] 9:43 AM CDT SUITE PRED FEF 2.17 L/s 03/24/2019 [facility] 25-75% 9:43 AM CDT SUITE PRED PEF 5.58 L/s 03/24/2019 [facility] 9:43 AM CDT SUITE Specimen (Source) Anatomical Collection Method Collection Time Re ceived Time Location / / Volume Laterality 03/09/2019 8:24 AM CDT Narrative This result has an attachment that is no t available. Rob Robles, Ph.D. PFT ORDERABLES Performing Organization Address City/State/ZIP Code Phon e Number [facility] [address] [facility] [address] documented in this encounter Visit Diagnoses Diagnosis Asthma Intrinsic (HCC) Wheezing documented in this encounter
--- OUTSIDE RECORDS SUMMARY | 2022-03-05 14:44 | XMS_ITS | Encounter Summary ---
:1955 Author Organization [facility] Address [address] [place] [address] Care Team Providers Name Role Phone Unavailable Primary Care Provider Unavailable Encounter Details Date Type Department Care Team Description 12/18/2018 Clinical Communication Division of Allergic Bri Mata, Diseases in [place], MWenBSandraS., Ph.D. [place] [address] [facility] [address] [place] [phone] Social History Tobacco Use Types Packs/Day Years [...] or relatives? How often do you attend christian or More than 4 times per year 02/04/2022 spiritism services? Do you belong to any clubs or Yes 02/04/2022 organizations such as christian groups, unions, fraternal or athletic groups, or [...] place to sleep or slept in a correction (including now)? Sex Assigned at Date Recorded Female 02/04/2022 1:44 PM CDT documented as of this encounter Miscellaneous Notes Telephone Encounter - Rob Mata M.B.B.S., Ph.D. - 12/18/2018 3:00 PM CDT ----- Message from Karla Grande sent at 12/18/2018 2:51 PM CDT ----- Regarding: Need spirometry This is the patient who needs spirometry preordered with other tests on 03-09-19. documented in this encounter Plan of Treatment Scheduled Orders Name Type Priority Associated Diagnoses Order S chedule Spirometry PFT Routine Asthma Intrinsic (HCC) Expec sanam: 12/18/2018 (Approximate), Expires: 2021 documented as of this encounter Visit Diagnoses Diagnosis Asthma Intrinsic (HCC) - Primary documented in this encounter
--- OUTSIDE RECORDS SUMMARY | 2022-03-05 14:44 | XMS_ITS | Encounter Summary ---
:1955 Author Organization [facility] Address [address] [place] [address] Care Team Providers Name Role Phone Unavailable Primary Care Provider Unavailable Reason for Referral Outpatient (Routine) - Closed Specialty Diagnoses / Procedures Referred By Contact Refer red To Contact Allergy and Immunology Diagnoses Asthma Mild Persistent [facility]HCC) [facility] MWenBSandraSS[facility], Ph.D. [address] [place] [address] Referral ID Status Reason Start Date Expiration Date Visits Requ ested Visits Authorized [id number] Closed 03/09/2019 03/08/2020 1 1 Specialty Diagnoses / Procedures Referred By Contact Refer red To Contact Rob Mata M.B.BSandraSSandra, [facility] Ph.D. [address] [place] [phone] Referral ID Status Reason Start Date Expiration Date Visits Requ ested Visits Authorized Reason for Visit Reason Comments Asthma Appointment Request (Routine) - Closed Specialty Diagnoses / Procedures Referred By Contact Refer red To Contact Allergy and Immunology Referral ID Status Reason Start Date Expiration Date Visits Requ ested Visits Authorized [id number] Closed 11/26/2018 11/26/2019 1 Encounter Details Date Type Department Care Team Description 03/09/2019 Comprehensive Visit Division of Allergic Jeff Mata Asthma Mild Diseases in D, M.B.B.S., Persistent (HCC ) [place], [place] Ph.D. (Primary Dx) 200 [facility] [address] [place] [phone] Social History Tobacco Use Types Packs/Day Years [...] or relatives? How often do you attend confucianism or More than 4 times per year 02/04/2022 mormon services? Do you belong to any clubs or Yes 02/04/2022 organizations such as confucianism groups, unions, fraternal or athletic groups, or [...] place to sleep or slept in a assisted (including now)? Education Answer Date Recorded What [...] Pulse 81 03/09/2019 9:45 AM CDT Temperature 36.6 ??C (97.9 ??F) 03/09/2019 9:45 AM CDT Respiratory Rate - - Oxygen Saturation - - Inhaled Oxygen Concentration - - Weight 67 kg (147 lb 11.3 oz) 03/09/2019 9:45 AM CDT Height 160.1 cm (5' 3.03) 03/09/2019 9:45 AM CDT Body Mass Index 26.14 03/09/2019 9:45 AM CDT documented in this encounter H&P Notes Rob Mata M.B.B.S., Ph.D. - 03/09/2019 10:00 AM CDT Ms.Roseanne Shabana Gonzalez is a 63 y.o. female who presents to the Division of Allergic Diseases forAsthma She has been referred by Natalie Grace M.D. [facility], [address] [place] [address] HPI: complains of asthma. The patient has been previously diagnosed with asthma. Symptoms have previously included chest tightness, dyspnea, non- productive cough and wheezing. Associated symptoms included productive cough if there was respiratory infection. Done well in last 10 years. Suspected precipitants include cold air and exercise. Symptoms have been stable and controlled in last 10years. Observed precipitants include cold air. Current limitations in activity from asthma include none. Number of days of school or work missed in the last month: 0. The previous exacerbation occurredseveral years ago. Has episodes of losing voice back in [place], may be correlated with allergy season. Concern for silent GERD as cause of her dysphonia. She does not report pain behind sternum, buthas heartburn if she has late dinner or spicy food. Pattern of symptoms is not reported to be seasonal. Symptoms are intermittent. She does not report worsening especially nocturnal and on awakening inearly morning. Spring and fall were historically worse season. Allergy test 20 years ago was dust, trees, mold. [place] [facility] [facility] [phone]. There are no pets in the house. She does not have exposure to a wood burning stove but has hobbies that include camping, that could expose to camp fires. Other factors such as emotion (seem crying or laughing, projecting voice) do trigger cough. Specifically, there is no history or worsening of symptoms with specific drugs such as aspirin, NSAIDS or beta-blockers. History of chronic sinusitis is not present. History of gastroesophageal reflux disease ispresent. Current treatment includes Proair and Symbicort . Using a spacer with the inhaler. Allergies Allergen Reactions ??? Sulfa (Sulfonamide Antibiotics) Hives Current Outpatient Medications: ??? albuterol (PROVENTIL HFA,VENTOLIN HFA) 90 mcg/actuation inhaler, Inhale as needed for wheezing.,Disp: , Rfl: ??? budesonide-formoterol (SYMBICORT) 160-4.5 mcg/actuation inhaler, Inhale 1 puff daily. Rinse mouth with water after use to reduce aftertaste and incidence of candidiasis. Do not swallow., Disp: , Rfl: ??? estradiol (VIVELLE-DOT) 0.075 mg/24 hr patch, , Disp: , Rfl: ??? fexofenadine (WYATT ALLERGY) 180 mg tablet, Take 1 tablet by mouth daily., Disp: , Rfl: ??? fluticasone propionate (FLONASE ALLERGY RELIEF) 50 mcg/actuation nasal spray, Administer 2 sprays into affected nostril(s) daily., Disp: , Rfl: ??? olopatadine (PATANOL) 0.1 % ophthalmic solution, 1 drop as needed., Disp: , Rfl: ??? progesterone (PROMETRIUM) 100 mg capsule, , Disp: , Rfl: ??? SUMAtriptan (IMITREX) 50 mg tablet, Take 50 mg by mouth as needed for migraine. May repeat in 2 hours if no relief. Max 2 doses/24 hrs, Disp: , Rfl: ??? albuterol (PROVENTIL HFA,VENTOLIN HFA) 90 mcg/actuation inhaler, Inhale 1-2 puffs every 4 (four)hours as needed., Disp: , Rfl: ??? budesonide (PULMICORT FLEXHALER) 180 mcg/actuation inhaler, Inhale 1 puff every evening., Disp: , Rfl: ??? fexofenadine-pseudoephedrine (WYATT-D 12 HOUR) 60-120 mg per 12 hr tablet, Take 1 tablet by mouth., Disp: , Rfl: ??? salmeterol (SEREVENT DISKUS) 50 mcg/dose diskus inhaler, Inhale 1 puff every evening., Disp: , Rfl: Past Medical History: Diagnosis [...] obvious abnormality, atraumatic Eyes: Extraocular movements intact Ears: External ears normal. TM normal. Cerumen on the right side Nose: External nose normal, septum midline, mucosa is not erythematous. Excess secretions are not present. Throat: Cobblestoning absent Neck: Supple, symmetrical Thyroid: gross thyroid enlargement is not seen. Lungs: Clear are to auscultation bilaterally, Wheeze is not present, dynamic airway collapse with deep expiration. Heart: Regular Abdomen: does not appear to be distended Extremities: no cyanosis or edema Skin: Skin color, texture, turgor normal, no rashes or lesions #1 Asthma Mild Persistent (HCC) - Allergy - Nurse education visit (clinic); Future; Expected date: 03/09/2019 - Allergy and Immunology office visit (clinic); Future; Expected date: 09/09/2019 IMPRESSION and PLAN: 1. ACT is 25, spirometry is good. Continue with current regimen 2. Symbicort 160-4.5 ug, one puff daily 3. Albuterol as needed for rescue 2 puffs every 4-6 hours 4. Albuterol 2 puffs 30 minutes prior to rigorous exercise. 5. Saline nasal irrigations daily in allergy seasons (fall and spring) 6. Will check with her PCP for pneumonia vaccine series, she indicates that she may have received itbut not sure. 7. Yearly influenza seasonal vaccine Calcium and Vitamin D (400 U), daily supplementation 8. Will consider step down to steroid inhalers only at next visit if continues to be stable. Informed consent We discussed the risks and benefits of the recommendations offered by me today including the rationale for those recommendations. There were no perceived barriers to communication and she verbalized excellent understanding of our discussion. All questions were answered to her satisfaction, and is encouraged access to patient online portal to revise and review discussion. seemed satisfied with visit today and thanked me for the time spent explaining the issues and had no further questions. SIGNATURE: Enrique MercadoBEn., Ph.D. CC: Natalie Grace M.D. documented in this encounter Plan of Treatment Scheduled Referrals Name Type Priority Associated Order Schedule Diagnoses Allergy - Nurse Outpatient Referral Routine Asthma Mild Expec sanam: education visit Persistent (HCC) 03/09/20 19 (clinic) (Approximate), Expires: 03/09/2022 Allergy and Outpatient Referral Routine Asthma Mild Expected : Immunology office Persistent (HCC) 2019 visit (clinic) (Approximate) , Expires: 03/09/2022 documented as of this encounter Visit Diagnoses Diagnosis Asthma Mild Persistent (HCC) - Primary documented in this encounter
--- OUTSIDE RECORDS SUMMARY | 2022-03-05 14:44 | XMS_ITS | Encounter Summary ---
:1955 Author Organization [facility] Address [address] [place] [address] Care Team Providers Name Role Phone Elsewhere, Pcp Primary Care Provider Unavailable Encounter Details Date Type Department Care Team Description 01/31/2022 Lab Department of Laboratory Rob Mata , Encounter For Preprocedural Laboratory Examination (COVID-19); Medicine and Pathology, M.B.B.S. , Ph.D. Contact With And (Suspected) Exposure To COVID-19 [facility], in [address] [place] [address] [place] [phone] [place] [phone] Social History Tobacco Use Types Packs/Day Years [...] More than 4 times per year 02/04/2022 shinto services? Do you belong to any clubs [...] place to sleep or slept in a penitentiary (including now)? Education Answer Date Recorded What is the highest level of school you have Some college, n o degree 03/09/2019 completed or the highest degree you have received? Sex Assigned at Date Recorded Female 02/04/2022 1:44 PM CDT documented as of this encounter Plan of Treatment Not on filedocumented as of this encounter Procedures Procedure Name Priority Date/Time Associated Diagnosis Comme nts SARS COV-2 RNA, Routine 01/31/2022 2:56 PM Encounter For Resul ts for this PCR, VARIES CDT Preprocedural procedure are in Laboratory Examination the r esults (COVID-19) section. Contact With And (Suspected) Exposure To COVID-19 documented in this encounter Results SARS CoV-2 RNA, PCR, Varies Asymptomatic (01/31/2022 2:56 PM CDT) [facility] Method Time Signature SARS CoV-2 Swab, 01/31/2022 [...] Drug Administration an d is used per air intelligence officer's instructions. Performance characteristics were verified by [facility] in a manner consistent with CLIA requirements. Visit the CDC website: https://www.cdc.g ov/coronavirus/ for the most recent guidelines on Coron avirus testing. Fact Sheet for Healthcare Providers: https://www.fda.gov/media/780528/downloa d Fact Sheet for Patients: https://www.fda.gov/media/574210/downloa d Specimen Anatomical Collection Method Collection Time Receive d Time (Source) Location / / Volume Laterality Varies 01/31/2022 2:56 PM 3:11 (Nasopharynx) CDT PM CDT Rob Robles, Ph.D. LAB MICROBIOLOGY - GEN ERAL ORDERABLES Performing Organization Address City/State/[facility] Code Phon e Number [facility] - [address] [place], [place] [address] [facility] [place] [address] [facility] [address] documented in this encounter Visit Diagnoses Diagnosis Encounter For Preprocedural Laboratory E xamination (COVID-19) Contact With And (Suspected) Exposure To COVID-19 documented in this encounter Additional Health Concerns Infection Onset Date Last Indicated Resolved Time COVID19 Pending 01/31/2022 01/31/2022 01/31/2022 6:50 PM CDT documented as of this encounter Care Teams Senior Materials Analyst Relationship Specialty Start Date End Date Elsewhere, Pcp PCP - General Internal Medicine 01/31/22 documented as of this encounter
--- OUTSIDE RECORDS SUMMARY | 2022-03-05 14:44 | XMS_ITS | Encounter Summary ---
:1955 Author Organization [facility] Address [address] [place] [address] Care Team Providers Name Role Phone Unavailable Primary Care Provider Unavailable Reason for Visit Reason Comments Allergy Testing Spirometry Outpatient (Routine) - Closed Specialty Diagnoses / Procedures Referred By Contact Refer red To Contact Diagnoses Asthma Chronic (HCC) Rob Mata, [facility] Procedures Spirometry M.B.B.S., Ph.D. [address] [place] [phone] Referral ID Status Reason Start Date Expiration Date Visits Requ ested Visits Authorized [id number] Closed 11/21/2020 11/21/2021 1 1 Encounter Details Date Type Department Care Team Description 02/06/2021 Clinical Support Division of Allergic Bri Mata MSandraB.B.S., Ph.D. [address] [place] [phone] Asthma Chronic (HCC) Diseases in Andra Arevalo R.N. [address] [place] [phone] [place], [place] [address] [place] [phone] Social History Tobacco Use Types Packs/Day Years [...] or relatives? How often do you attend jewish or More than 4 times per year 02/04/2022 caodaism services? Do you belong to any clubs or Yes 02/04/2022 organizations such as jewish groups, unions, fraternal or athletic groups, or [...] place to sleep or slept in a long-term (including now)? Education Answer Date Recorded What is the highest level of school you have Some college, n o degree 03/09/2019 completed or the highest degree you have received? Sex Assigned at Date Recorded Female 02/04/2022 1:44 PM CDT documented as of this encounter Last Filed Vital Signs Vital Sign Reading Time Taken Comments Blood Pressure - - Pulse - - Temperature - - Respiratory Rate - - Oxygen Saturation - - Inhaled Oxygen Concentration - - Weight 69.6 kg (153 lb 7 oz) 02/06/2021 12:29 PM CDT Height 154.5 cm (5' 0.83) 02/06/2021 12:29 PM CDT Body Mass Index 29.16 02/06/2021 12:29 PM CDT documented in this encounter Plan of Treatment Not on filedocumented as of this encounter Procedures Procedure Name Priority Date/Time Associated Comments Diagnosis LA BRONCHODILATION Routine 02/06/2021 1:55 Asthma Chronic Resu lts for this RESPONSIVENESS PM CDT (HCC) procedure are in the results section. documented in this encounter Results Spirometry (02/06/2021 1:55 PM CDT) [facility] MAX POST 2.57 L 02/06/2021 [facility] 4:42 PM CD[address] PostFVC 2.57 L 02/06/2021 [facility] 4:42 PM CDT SUITE PostFEV1 2.07 L 02/06/2021 [facility] 4:42 PM CDT SUITE FEV1/FVC POST 80.45 % 02/06/2021 [facility] 4:42 PM CDT SU[address] FEF 25-75 % 2.02 L/s 02/06/2021 [facility] 4:42 PM CDT SU[address] PEF POST 7.16 L/s 02/06/2021 [facility] 4:42 PM CDT [address] FET POST 8.48 sec 02/06/2021 [facility] 4:42 PM CDT [address] VC MAX PRE 2.54 L 02/06/2021 [facility] 4:42 PM CDT SUITE FVC 2.54 L 02/06/2021 [facility] 4:42 PM CDT SUITE FEV1 1.99 L 02/06/2021 [facility] 4:42 PM CDT SUITE FEV1/FVC 78.49 % 02/06/2021 [facility] 4:42 PM CDT SUITE LMZ78-63% 1.81 L/s 02/06/2021 [facility] 4:42 PM CDT SU[address] PEF PRE 7.01 L/s 02/06/2021 [facility] 4:42 PM CDT SUITE FET PRE 7.92 sec 02/06/2021 [facility] 4:42 PM CDT SUITE SUBSTANCE POST Albuterol 02/06/2021 [facility] 4:[address] DOSE POST 2 Puff 02/06/2021 [facility] 4:42 PM CDT SU[address] % PRED VC MAX 93 % % 02/06/2021 [facility] 4:42 PM CDT SUITE FVC% 93 % % 02/06/2021 [facility] 4:42 PM CDT SUITE FEV1% 92 % % 02/06/2021 [facility] 4:42 PM CDT SUITE % PRED 99 % % 02/06/2021 [facility] FEV1/FVC 4:42 PM CDT SUITE % PRED FEF 91 % % 02/06/2021 [facility] 25-75% 4:42 PM CDT SUITE % PRED PEF 133 % % 02/06/2021 [facility] 4:42 PM CDT SU[address] PRED VC MAX 2.73 02/06/2021 [facility] 4:42 PM CDT SUITE PRED FVC 2.73 02/06/2021 [facility] 4:42 PM CDT SU[address] PRED FEV 1 2.16 02/06/2021 [facility] 4:42 PM CDT SU[address] PRED FEV1/FVC 79.4 02/06/2021 [facility] 4:42 PM CDT [address] PRED FEF 1.98 02/06/2021 [facility] 25-75% 4:42 PM CD[address] PRED PEF 5.3 02/06/2021 [facility] 4:42 PM CDT SUITE Specimen (Source) Anatomical Collection Method Collection Time Re ceived Time Location / / Volume Laterality 02/06/2021 1:55 PM CDT Narrative This result has an attachment that is no t available. Rob NunezBSandraS., Ph.D. PFT ORDERABLES Performing Organization Address City/State/ZIP Code Phon e Number [facility] [address] [address] documented in this encounter Visit Diagnoses Diagnosis Asthma Chronic (HCC) documented in this encounter
--- OUTSIDE RECORDS SUMMARY | 2022-03-05 14:44 | XMS_ITS | Encounter Summary ---
:1955 Author Organization [facility] Address [address] [place] [address] Care Team Providers Name Role Phone Unavailable Primary Care Provider Unavailable Reason for Visit Reason Comments COVID Nurse Line Encounter Details Date Type Department Care Team Description 02/11/2020 Clinical Communication Division of Allergic Divekar, R ohit COVID Nurse Line Diseases in D, Britney.B.S., [place], [place] Ph.D. [address] [facility] [address] [place] [phone] [phone] Social History Tobacco Use Types Packs/Day Years [...] or relatives? How often do you attend mandaeism or More than 4 times per year 02/04/2022 quaker services? Do you belong to any clubs or Yes 02/04/2022 organizations such as mandaeism groups, unions, fraternal or athletic groups, or [...] place to sleep or slept in a fpc (including now)? Education Answer Date Recorded What is the highest level of school you have Some college, n o degree 03/09/2019 completed or the highest degree you have received? Sex Assigned at Date Recorded Female 02/04/2022 1:44 PM CDT documented as of this encounter Miscellaneous Notes Telephone Encounter - Svetlana Michaels - 02/11/2020 12:41 PM CDT ([facility] and [facility] locations only: If the patient is not having symptoms and is requesting COVID-19 Nasal Swab testing only, use the process listed in the COVID-19 Patient Requesting COVID PCR Test OTG COVID-19 [place] Patient Requesting COVID PCR Test). 1. Do you have a pending COVID test because you had symptoms or exposure to someone with COVID or you have tested positive for COVID in the last 30 days? no 2. In the past 14 days, do you, anyone in the household, or anyone you have had prolonged exposure have any of the following? a. Fever greater than or equal to 37.8 C (100.0 F)? no b. New symptoms (Specifically: headache, cough, shortness of breath, respiratory distress, sore throat, diarrhea, nausea, vomiting, chills and repeated shaking with chills, myalgia's (muscle aches), loss of smell, or change or loss of taste sensation)? no c. Had close contact with a patient with known or possible COVID-19 in the last 14 days? no Route reply to: romulo yañez desk Scheduling Contact Number: [phone] documented in this encounter Plan of Treatment Not on filedocumented as of this encounter Visit Diagnoses Not on filedocumented in this encounter
--- OUTSIDE RECORDS SUMMARY | 2022-03-05 14:44 | XMS_ITS | Encounter Summary ---
:1955 Author Organization [facility] Address [address] [place] [address] Care Team Providers Name Role Phone Unavailable Primary Care Provider Unavailable Encounter Details Date Type Department Care Team Description 07/29/2008 Hospital Encounter HX [facility] Provider, [place] jayden Social History Tobacco Use Types Packs/Day Years Used Date Smoking Tobacco: Never Assessed Alcohol Habits Answer Date Recorded How often [...] More than 4 times per year 02/04/2022 buddhism services? Do you belong to any clubs [...] place to sleep or slept in a alf (including now)? Sex Assigned at Date Recorded Female 02/04/2022 1:44 PM CDT documented as of this encounter Plan of Treatment Not on filedocumented as of this encounter Visit Diagnoses Not on filedocumented in this encounter
--- OUTSIDE RECORDS SUMMARY | 2022-03-05 14:44 | XMS_ITS | Encounter Summary ---
:1955 Author Organization [facility] Address [address] [place] [address] Care Team Providers Name Role Phone Unavailable Primary Care Provider Unavailable Encounter Details Date Type Department Care Team Description 02/05/2021 Clinical Communication Division of Allergic Bri Mata, Diseases in [place], MWenBSandraS., Ph.D. [place] [address] [facility] [address] [place] [phone] Social History Tobacco Use Types Packs/Day Years [...] or relatives? How often do you attend buddhist or More than 4 times per year 02/04/2022 lutheran services? Do you belong to any clubs or Yes 02/04/2022 organizations such as buddhist groups, unions, fraternal or athletic groups, or [...] place to sleep or slept in a residential (including now)? Education Answer Date Recorded What [...]
--- OUTSIDE RECORDS SUMMARY | 2022-03-05 14:44 | XMS_ITS | Encounter Summary ---
:1955 Author Organization [facility] Address [address] [place] [address] Care Team Providers Name Role Phone Unavailable Primary Care Provider Unavailable Reason for Visit Reason Comments Med Refill Encounter Details Date Type Department Care Team Description 02/05/2020 Refill Division of Allergic Diseases Radha Mata, Med Refill in [facility] bart Robles, Ph.D. [address] [facility] [address] [place] [address] [place] [address] [phone] (Wo rk) Social History Tobacco Use Types [...] or relatives? How often do you attend worship or More than 4 times per year 02/04/2022 mu-ism services? Do you belong to any clubs or Yes 02/04/2022 organizations such as worship groups, unions, fraternal or athletic groups, or [...] place to sleep or slept in a retirement (including now)? Education Answer Date Recorded What [...]
--- OUTSIDE RECORDS SUMMARY | 2022-03-05 14:44 | XMS_ITS | Encounter Summary ---
:1955 Author Organization [facility] Address [address] [place] [address] Care Team Providers Name Role Phone Unavailable Primary Care Provider Unavailable Reason for Visit Reason Comments Allergy Testing Patient decline allergy skin testing Encounter Details Date Type Department Care Team Description 03/09/2019 Clinical Support Division of Allergic Fernandaekar, Willam Roberts.B.B.S., Ph.D. [address] [place] [phone] Asthma ([facility]); Diseases in [place], Adilene Hull R.N. [address] [place] [phone] Rhinitis Allergic [place] [address] [place] [phone] Social History Tobacco Use Types Packs/Day Years [...] or relatives? How often do you attend yarsanism or More than 4 times per year 02/04/2022 spiritism services? Do you belong to any clubs or Yes 02/04/2022 organizations such as yarsanism groups, unions, fraternal or athletic groups, or [...] place to sleep or slept in a halfway (including now)? Education Answer Date Recorded What is the highest level of school you have Some college, n o degree 03/09/2019 completed or the highest degree you have received? Sex Assigned at Date Recorded Female 02/04/2022 1:44 PM CDT documented as of this encounter Plan of Treatment Not on filedocumented as of this encounter Visit Diagnoses Diagnosis Asthma (HCC) Rhinitis Allergic documented in this encounter
--- OUTSIDE RECORDS SUMMARY | 2022-03-05 14:44 | XMS_ITS | Encounter Summary ---
:1955 Author Organization [facility] Address [address] [place] [address] Care Team Providers Name Role Phone Unavailable Primary Care Provider Unavailable Encounter Details Date Type Department Care Team Description 01/07/2019 Clinical Communication Division of Allergic Kloos Zander wren, Diseases in Carri Grigsby R.N. [place], [place] [address] [facility] [address] [place] [phone] Social History Tobacco Use Types Packs/Day Years [...] or relatives? How often do you attend moravian or More than 4 times per year 02/04/2022 gnosticist services? Do you belong to any clubs or Yes 02/04/2022 organizations such as moravian groups, unions, fraternal or athletic groups, or [...]
--- OUTSIDE RECORDS SUMMARY | 2022-03-05 14:44 | XMS_ITS | Encounter Summary ---
:1955 Author Organization [facility] Address [address] [place] [address] Care Team Providers Name Role Phone Unavailable Primary Care Provider Unavailable Reason for Visit Reason Comments Med Refill Encounter Details Date Type Department Care Team Description 01/02/2022 Refill Division of Allergic Diseases Radha Mata, Med Refill in [facility] bart Robles, Ph.D. [address] [facility] [address] [place] [phone] [place] [address] [phone] (Wo rk) Social History Tobacco Use Types [...] or relatives? How often do you attend tenriism or More than 4 times per year 02/04/2022 zoroastrian services? Do you belong to any clubs or Yes 02/04/2022 organizations such as tenriism groups, unions, fraternal or athletic groups, or [...] this encounter Visit Diagnoses Diagnosis Rhinitis Allergic documented in this encounter
--- OUTSIDE RECORDS SUMMARY | 2022-03-05 14:44 | XMS_ITS | Encounter Summary ---
:1955 Author Organization [facility] Address [address] [place] [address] Care Team Providers Name Role Phone Unavailable Primary Care Provider Unavailable Reason for Visit Appointment Request (Routine) - Closed Specialty Diagnoses / Procedures Referred By Contact Refer red To Contact Allergy and Immunology Referral ID Status Reason Start Date Expiration Date Visits Requ ested Visits Authorized [id number] Closed 12/14/2018 12/14/2019 1 Encounter Details Date Type Department Care Team Description 01/07/2019 Clinical Communication Division of Allergic Diseases in [facility] [address] [place] [phone] Social History Tobacco Use Types Packs/Day Years [...] or slept in a retirement (including now)? Sex Assigned at Date Recorded Female 02/04/2022 1:44 PM CDT documented as of this encounter Plan of Treatment Not on filedocumented as of this encounter Visit Diagnoses Not on filedocumented in this encounter
--- OUTSIDE RECORDS SUMMARY | 2022-03-05 14:44 | XMS_ITS | Encounter Summary ---
:1955 Author Organization [facility] Address [address] [place] [address] Care Team Providers Name Role Phone Unavailable Primary Care Provider Unavailable Reason for Visit Reason Comments Pre-visit Testing Orders Encounter Details Date Type Department Care Team Description 12/14/2018 Clinical Communication Division of Rob Mata Pre -visit Testing Allergic Diseases Britney Alfaro.B.S., Orders in [place], Ph.D. [place] [address] [facility] [address] [place] [phone] Social History Tobacco Use Types Packs/Day Years [...] or relatives? How often do you attend mandaen or More than 4 times per year 02/04/2022 yazdanism services? Do you belong to any clubs or Yes 02/04/2022 organizations such as mandaen groups, unions, fraternal or athletic groups, or [...] place to sleep or slept in a group home (including now)? Sex Assigned at Date Recorded Female 02/04/2022 1:44 PM CDT documented as of this encounter Miscellaneous Notes Telephone Encounter - Ruth Vieyra - 12/14/2018 9:24 AM CDT Previous patient of Dr. Bradford. Last seen 2012. Considered new patient. Pre- visit Asthma testing. Thank you. documented in this encounter Plan of Treatment Scheduled Orders Name Type Priority Associated Diagnoses Order S chedule Basic Skin Test Procedures Routine Asthma (HCC) Expected: 12/14/2018 Rhinitis Allergic (Approxima te), Expires: 2021 [facility] Skin Test Procedures Routine Asthma (HCC) Expected: 12/14/2018 Rhinitis Allergic (Approxima te), Expires: 2021 documented as of this encounter Visit Diagnoses Diagnosis Asthma (HCC) - Primary Rhinitis Allergic documented in this encounter
--- OUTSIDE RECORDS SUMMARY | 2022-03-05 14:44 | XMS_ITS | Encounter Summary ---
:1955 Author Organization [facility] Address [address] [place] [address] Care Team Providers Name Role Phone Unavailable Primary Care Provider Unavailable Encounter Details Date Type Department Care Team Description 03/09/2019 Orders Only Division of Allergic Sin Arevalo, R.N. Diseases in [place], [facility] [address] [place] [address] [facility] [address] [place] [phone] [phone] Social History Tobacco Use Types Packs/Day Years [...] or relatives? How often do you attend rastafari or More than 4 times per year 02/04/2022 yazidi services? Do you belong to any clubs or Yes 02/04/2022 organizations such as rastafari groups, unions, fraternal or athletic groups, or [...]
--- OUTSIDE RECORDS SUMMARY | 2022-03-05 14:44 | XMS_ITS | Encounter Summary ---
:1955 Author Organization [facility] Address [address] [place] [address] Care Team Providers Name Role Phone Unavailable Primary Care Provider Unavailable Reason for Visit Reason Comments Allergy Testing LINDA Outpatient (Routine) - Closed Specialty Diagnoses / Procedures Referred By Contact Refer red To Contact Diagnoses Asthma Chronic (HCC) Rob Mata, [facility] Procedures ALI Exhaled Nitric Oxide M.B.B.S., Ph.D. [address] [place] [phone] Referral ID Status Reason Start Date Expiration Date Visits Requ ested Visits Authorized [id number] Closed 02/06/2021 02/06/2022 1 1 Encounter Details Date Type Department Care Team Description 02/06/2021 Clinical Support Division of Rob Mata, M.B.B.S., Ph.D. [address] [place] [phone] Asthma Chronic (HCC) Allergic Diseases Aidee Mast R.N. in [place], [place] [address] [place] [phone] Social History Tobacco Use Types Packs/Day Years [...] More than 4 times per year 02/04/2022 mosque services? Do you belong to any clubs [...] Name Priority Date/Time Associated Diagnosis Comme nts ALI EXHALED NITRIC Routine 02/06/2021 3:29 PM Asthma Chronic ( HCC) Results for this OXIDE CDT procedure are i n the results section. documented in this encounter Results ALI Exhaled Nitric Oxide [...]
--- OUTSIDE RECORDS SUMMARY | 2022-03-05 14:44 | XMS_ITS | Encounter Summary ---
:1955 Author Organization [facility] Address [address] [place] [address] Care Team Providers Name Role Phone Unavailable Primary Care Provider Unavailable Reason for Referral Outpatient (Routine) - Closed Specialty Diagnoses / Procedures Referred By Contact Refer red To Contact Diagnoses Asthma Chronic (HCC) Rob Mata, [facility] Procedures Spirometry EnriqueBKarely, Ph.D. [address] [place] [phone] Referral ID Status Reason Start Date Expiration Date Visits Requ ested Visits Authorized [id number] Closed 11/21/2020 11/21/2021 1 1 Encounter Details Date Type Department Care Team Description 11/21/2020 Clinical Communication Division of Allergic Bri Mata, Diseases in [place], EnriqueBKarely, Ph.D. [address] [place] [phone] Social History Tobacco Use Types Packs/Day Years [...] or relatives? How often do you attend muslim or More than 4 times per year 02/04/2022 protestant services? Do you belong to any clubs or Yes 02/04/2022 organizations such as muslim groups, unions, fraternal or athletic groups, or [...] or slept in a alf (including now)? Education Answer Date Recorded What is the highest level of school you have Some college, n o degree 03/09/2019 completed or the highest degree you have received? Sex Assigned at Date Recorded Female 02/04/2022 1:44 PM CDT documented as of this encounter Miscellaneous Notes Telephone Encounter - Deonna Cardona - 11/21/2020 10:51 AM CDT Patient is scheduled 02/06 for asthma established Please order breathing test documented in this encounter Plan of Treatment Not on filedocumented as of this encounter Results Spirometry (02/06/2021 1:55 PM CDT) [facility] MAX POST 2.57 L 02/06/2021 [place] SENTRY 4:42 PM CDT SU[address] PostFVC 2.57 L 02/06/2021 [place] SENTRY 4:42 PM CDT SUITE PostFEV1 2.07 L 02/06/2021 [place] SENTRY 4:42 PM CDT SUITE FEV1/FVC POST 80.45 % 02/06/2021 [place] S[place] 4:42 PM CDT SUITE FEF 25-75 % 2.02 L/s 02/06/2021 [place] S[place] POST 4:42 PM [address] PEF POST 7.16 L/s 02/06/2021 [place] SENTRY 4:42 PM CDT SU[address] FET POST 8.48 sec 02/06/2021 [place] S[place] 4:[address] VC MAX PRE 2.54 L 02/06/2021 [place] 4:42 PM CDT SUITE FVC 2.54 L 02/06/2021 [place] [place] 4:42 PM CDT SUITE FEV1 1.99 L 02/06/2021 [place] 4:42 PM CDT SUITE FEV1/FVC 78.49 % 02/06/2021 [place] S[place] 4:42 PM CDT SUITE YTF81-02% 1.81 L/s 02/06/2021 [place] S[place] 4:[address] PEF PRE 7.01 L/s 02/06/2021 [place] S[place] 4:[address] FET PRE 7.92 sec 02/06/2021 [place] SENTRY 4:42 PM CDT SUITE SUBSTANCE POST Albuterol 02/06/2021 [place] S[place] 4:[address] DOSE POST 2 Puff 02/06/2021 [place] S[place] 4:42 PM CDT SUITE % PRED VC MAX 93 % % 02/06/2021 [place] S[place] 4:42 PM CDT SU[address] FVC% 93 % % 02/06/2021 [place] [place] 4:42 PM CDT SUITE FEV1% 92 % % 02/06/2021 [place] S[place] 4:42 PM CDT SUITE % PRED 99 % % 02/06/2021 [facility] FEV1/FVC 4:42 PM CDT SUITE % PRED FEF 91 % % 02/06/2021 [place] S[place] 25-75% 4:42 PM CDT SUITE % PRED PEF 133 % % 02/06/2021 [facility] 4:42 PM CD[address] PRED VC MAX 2.73 02/06/2021 [facility] 4:42 PM CDT [address] PRED FVC 2.73 02/06/2021 [facility] 4:[facility] PM CDT SU[address] PRED FEV 1 2.16 02/06/2021 [facility] 4:[address] PM CD[address] PRED FEV1/FVC 79.4 02/06/2021 [facility] 4:[address] PRED FEF 1.98 02/06/2021 [facility] 25-75% 4:[address] PRED PEF 5.3 02/06/2021 [facility] 4:42 PM CDT SUITE Specimen (Source) Anatomical Collection Method Collection Time Re ceived Time Location / / Volume Laterality 02/06/2021 1:55 PM CDT Narrative This result has an attachment that is no t available. Rob Robles, Ph.D. PFT ORDERABLES Performing Organization Address City/State/ZIP Code Phon e Number [facility] [address] documented in this encounter Visit Diagnoses Diagnosis Asthma Chronic (HCC) - Primary documented in this encounter
--- OUTSIDE RECORDS SUMMARY | 2022-03-05 14:44 | XMS_ITS | Encounter Summary ---
:1955 Author Organization [facility] Address [address] [place] [address] Care Team Providers Name Role Phone Unavailable Primary Care Provider Unavailable Reason for Visit Reason Comments Pre-visit Testing Orders Encounter Details Date Type Department Care Team Description 01/31/2020 Clinical Communication Division of Rob Mata Pre -visit Testing Allergic Diseases Dominic, Willam.B.B.S., Orders in [place], Ph.D. [place] [address] [address] [facility] [address] [place] [phone] Social History Tobacco Use Types Packs/Day Years [...] More than 4 times per year 02/04/2022 druze services? Do you belong to any clubs [...] place to sleep or slept in a jail (including now)? Education Answer Date Recorded What is the highest level of school you have Some college, n o degree 03/09/2019 completed or the highest degree you have received? Sex Assigned at Date Recorded Female 02/04/2022 1:44 PM CDT documented as of this encounter Miscellaneous Notes Telephone Encounter - Rob Mata M.B.BSandraS., Ph.D. - 01/31/2020 4:16 PM CDT Orders Placed This Encounter ??? SARS Coronavirus-2, PCR Asymptomatic Medical Screening Standing Status: Future Standing Expiration Date: 01/30/2023 Scheduling Instructions: This is for Screening for high risk outpatient appointments and procedures; test to be done 48 hours before high risk appointment or procedure. Order Specific Question: Patient Testing Reason Answer: Asymptomatic Order Specific Question: Region Answer: [facility] [[id number]] ??? SARS-CoV-2 Total Antibody, Serum Medical Screening Standing Status: Future Standing Expiration Date: 01/30/2023 Scheduling Instructions: This is for Screening for high risk outpatient appointments and procedures; test to be done 48 hours before high risk appointment or procedure. Order Specific Question: Region Answer: [facility] [[id number]] ??? Pulmonary Function Tests Standing Status: Future Standing Expiration Date: 01/30/2023 Order Specific Question: Region Answer: [place] [facility] [[id number]] Order Specific Question: Complete PFT or Spirometry: Answer: Complete PFT with BD Order Specific Question: Additional Exams: Answer: None Order Specific Question: Patient requires Airborne/Tuberculosis precautions: Answer: No Airborne precautions not required Telephone Encounter - Ruth Vieyra - 01/31/2020 1:57 PM CDT Patient is scheduled to see you on 02/14/2020 at 2:30 pm for asthma follow up. Please place order forbreathing test. Thank you. documented in this encounter Plan of Treatment Not on filedocumented as of this encounter Results Pulmonary Function Tests (02/14/2020 12:32 PM CDT) P athologist Signature VC MAX POST 2.88 L 02/14/2020 [facility] 3:03 PM CDT [address] PostFVC 2.88 L 02/14/2020 [facility] 3:03 PM CDT SUITE PostFEV1 2.24 L 02/14/2020 [facility] 3:03 PM CDT SUITE FEV1/FVC POST 77.67 % 02/14/2020 [facility] 3:03 PM [address] FEF 25-75 % 1.95 L/s 02/14/2020 [facility] 3:[address] PEF POST 7.55 L/s 02/14/2020 [facility] 3:[address] FET POST 11.67 sec 02/14/2020 [facility] 3:[address] DLCO SINGLE 18.12 ml/(min*mm 02/14/2020 [facility] BREATH POST Hg) 3:[address] VA SINGLE 4.30 L 02/14/2020 [facility] BREATH POST 3:[address] VC MAX PRE 2.83 L 02/14/2020 [facility] 3:03 PM [address] FVC 2.83 L 02/14/2020 [facility] 3:03 PM CDT [address] FEV1 2.18 L 02/14/2020 [facility] 3:03 PM CDT SU[address] FEV1/FVC 76.91 % 02/14/2020 [facility] 3:03 PM CDT SU[address] WJN83-02% 1.78 L/s 02/14/2020 [facility] 3:[address] PEF PRE 7.81 L/s 02/14/2020 [facility] 3:[address] FET PRE 11.11 sec 02/14/2020 [facility] 3:[address] SUBSTANCE POST NaN 02/14/2020 [facility] 3:[address] DOSE POST NaN 02/14/2020 [facility] 3:03 PM CDT SU[address] % PRED VC MAX 95.49 % 02/14/2020 [facility] 3:03 PM CDT SU[address] FVC% 95.49 % 02/14/2020 [facility] 3:03 PM CDT SUITE FEV1% 93.23 % 02/14/2020 [facility] 3:03 PM CDT SUITE % PRED 97.07 % 02/14/2020 [facility] FEV1/FVC 3:03 PM CDT SU[address] % PRED FEF 84.07 % 02/14/2020 [facility] 25-75% 3:03 PM CDT SUITE % PRED PEF 141.25 % 02/14/2020 [facility] 3:03 PM CD[address] PRED VC MAX 2.96 L 02/14/2020 [facility] 3:03 PM CDT [address] PRED FVC 2.96 L 02/14/2020 [facility] 3:03 PM CD[address] PRED FEV 1 2.34 L 02/14/2020 [facility] 3:03 PM CDT [address] PRED FEV1/FVC 79.23 % 02/14/2020 [facility] 3:03 PM CDT [address] PRED FEF 2.12 L/s 02/14/2020 [facility] 25-75% 3:[address] PRED PEF 5.53 L/s 02/14/2020 [facility] 3:03 PM CDT SUITE Specimen (Source) Anatomical Collection Method Collection Time Re ceived Time Location / / Volume Laterality 02/14/2020 12:32 PM CDT Narrative This result has an attachment that is no t available. Rob Robles, Ph.D. PFT ORDERABLES Performing Organization Address City/State/ZIP Code Phon e Number [facility] [place] [facility] [place] SARS Coronavirus-2, PCR Asymptomatic (02/12/2020 11:48 AM CDT) [facility] Method Time Signature SARS Swab, 02/12/2020 [facility] Coronavirus-2 Nasopharynx 11:18 PM Source CDT SARS Undetected Undetected 02/12/2020 [facility] Coronavirus-2 11:18 PM , PCR CDT Comment: SARS-CoV-2 RNA absent. This result does not rule out COVID-19 in the patient, as the sensitivity of the test depends o n the timing of the specimen collection and quality of the specimen. Result should be correlated with patient's history and clinical presentat ion. ----ADDITIONAL INFORMATION---- This test was developed and its performa nce characteristics determined by [facility] in a manner co nsistent with CLIA requirements. Independent review by the U.S. Food and Drug Administration is pending. Visit the CDC website: https://www.cdc.gov/coronavirus/ ?? for the most recent guidelines on Elder virus testing. Fact Sheet for Healthcare Providers: (https://www.Healthy Humans/it-mmfil es/ Provider_Fact_Sheet_for_[facility]_COVI D-19.pdf) Fact Sheet for Patients: (https://www.RockBee.Cloudmark/it-mmfil es/ Patient_Fact_Sheet_for_COVID-19.pdf) Specimen Anatomical Collection Method Collection Time Receive d Time (Source) Location / / Volume Laterality Varies 02/12/2020 11:48 02/12/2020 (Nasopharynx) AM CDT 11:48 AM CDT Rob NunezBSandraSSandra, Ph.D. LAB MICROBIOLOGY - GEN ERAL ORDERABLES Performing Organization Address City/State/ZIP Code Phon e Number [facility] - [address] [place], [place] [address] [place] [address] [facility] [address] SARS-CoV-2 Total Antibody, Serum (02/12/2020 9:46 AM CDT) [facility] Method Time Signature SARS-CoV-2 Negative Negative 02/12/2020 [facility] Nucleocapsid 10:33 AM CDT Total Ab, S Comment: No antibodies to SARS-CoV-2 detected. Ne gative results may occur in serum collected too soon fo llowing infection or in immunosuppressed patients. Follow- up testing with a molecular test is recommended in symptom atic patients. This test should not be used to exclude activ e/recent COVID-19. ----ADDITIONAL INFORMATION---- Testing was performed using the [employer]ys Tjro-FWAN-VhH-2 Reagent assay from [employer], which has received Emergency Use Authori zation(EUA) by the U.S. Food and Drug Administration . Fact sheets for this Emergency Use Autho rization (EUA) assay can be found at the following link s: For Healthcare Providers: https://www.fda.gov/media/585973/downloa d For Patients: https://www.fda.gov/media/584339/downloa d Specimen Anatomical Collection Method Collection Time Receive d Time (Source) Location / / Volume Laterality Blood (Blood, 02/12/2020 9:46 AM 02/12/20 20 Venous) CDT 10:05 AM CDT Rob Robles, Ph.D. LAB MICROBIOLOGY - BLO OD ORDERABLES Performing Organization Address City/State/ZIP Code Phon e Number [facility] - [address] [place], [place] [address] [facility] [address] [facility] [address] documented in this encounter Visit Diagnoses Diagnosis Asthma Chronic (HCC) - Primary documented in this encounter
--- OUTSIDE RECORDS SUMMARY | 2022-03-05 14:44 | XMS_ITS | Encounter Summary ---
:1955 Author Organization [facility] Address [address] [place] [address] Care Team Providers Name Role Phone Unavailable Primary Care Provider Unavailable Reason for Visit Reason Comments Pre-visit Testing Orders Encounter Details Date Type Department Care Team Description 01/02/2022 Clinical Communication Division of Rob Mata Pre -visit Testing Allergic Diseases Willam Alfaro.B.B.S., Orders in [place], Ph.D. [place] [address] [address] [facility] [address] [place] [phone] [phone] Social History Tobacco Use Types Packs/Day Years [...] or relatives? How often do you attend episcopalian or More than 4 times per year 02/04/2022 congregation services? Do you belong to any clubs or Yes 02/04/2022 organizations such as episcopalian groups, unions, fraternal or athletic groups, or [...] Notes Telephone Encounter - Ruth Vieyra - 01/02/2022 11:26 AM CDT Jorden, Patient is coming back to follow up with you. Last Seen: 02/06/2021 Future Appointment Date: 02/04/2022 Prior Indication(s): Asthma, Allergies New Symptoms: Asthma, Allergies Testing Order: Breathing test Please place any other testing that you would like to have done! Thank you! documented in this encounter Plan of Treatment Not on filedocumented as of this encounter Visit Diagnoses Diagnosis Asthma Chronic (HCC) - Primary documented in this encounter
--- OUTSIDE RECORDS SUMMARY | 2022-03-05 14:44 | XMS_ITS | Encounter Summary ---
:1955 Author Organization [facility] Address [address] [place] [address] Care Team Providers Name Role Phone Unavailable Primary Care Provider Unavailable Encounter Details Date Type Department Care Team Description 03/09/2019 Clinical Communication Division of Allergic Bri Mata, Diseases in [place], MSandraBSandraBSandraS., Ph.D. [place] [address] [facility] [address] [place] [phone] Social History Tobacco Use Types Packs/Day Years [...] or relatives? How often do you attend yarsani or More than 4 times per year 02/04/2022 orthodox services? Do you belong to any clubs or Yes 02/04/2022 organizations such as yarsani groups, unions, fraternal or athletic groups, or [...] place to sleep or slept in a nursing home (including now)? Education Answer Date Recorded What is the highest level of school you have Some college, n o degree 03/09/2019 completed or the highest degree you have received? Sex Assigned at Date Recorded Female 02/04/2022 1:44 PM CDT documented as of this encounter Miscellaneous Notes Telephone Encounter - Crystal Santana - 03/09/2019 4:20 PM CDT Nurse: No action needed Scheduling: Follow-up visit ordered. Studio Operation Engineer: Please set-up a telephone call with designated provider. or Other: nothing needed Disposition: Follow-up needed. See scheduling section. will see patient back in 6 months 09/16 documented in this encounter Plan of Treatment Not on filedocumented as of this encounter Visit Diagnoses Not on filedocumented in this encounter
== END 2022-02-11 11:19 | disposition home or self-care (01) ==
LOC: NFLDREF 11:19
PROVIDERS: PCP Obstetrics & Gynecology; Visit Provider Family Medicine
DX: R19.7 Diarrhea, unspecified (principal)
CPT/HCPCS: 87045; 87046; 87177; 87209; 87427; 87493; 87505

== ENCOUNTER 2022-07-05 09:06 | Outpatient (CLI) | payer BC, SELFPAY ==
--- NOTE | 2022-07-05 09:15 | CRLHL7_ITS ---
For Patients: As a result of the Century Cures Act, medical imaging exams and procedure reports are released immediately into your electronic medical record. You may view this report before your referring provider. If you have questions, please contact your health care provider. BILATERAL SCREENING MAMMOGRAM WITH COMPUTER-AIDED DETECTION AND TOMOSYNTHESIS TECHNIQUE: CC and MLO views were obtained. These mammographic images have been obtained using full-field digital technique. These mammographic images were interpreted with the benefit of computer-aided detection. Breast Tomosynthesis was used in this interpretation. COMPARISON FILM: 06/13/21, 05/29/20, 07/27/19. FINDINGS: There are scattered areas of fibroglandular density IMPRESSION: There is no radiographic evidence for malignancy. ASSESSMENT: BI-RADS Category 2: Benign RECOMMENDATION: Routine screening mammogram in 1 year. A lay language report of this examination will be provided to the patient. Ronnie Esquivel M.D. Diagnostic Radiologist [email or web address] Transcribed: 1:51 pm DW/Dictated by: Ronnie Esquivel MD @ 07/05/2022 12:26:00 PM (Electronically Signed)
--- OUTSIDE RECORDS SUMMARY | 2022-07-05 09:30 | XMS_ITS | Encounter Summary ---
:1955 Author Organization [facility] Address [address] [place] [address] Care Team Providers Name Role Phone Unavailable Primary Care Provider Unavailable Reason for Visit Reason Comments Allergy Testing LINDA Outpatient (Routine) - Closed Specialty Diagnoses / Procedures Referred By Contact Refer red To Contact Diagnoses Asthma Chronic (HCC) Rob Mata, [facility] Procedures ALI Exhaled Nitric Oxide M.B.B.S., Ph.D. [address] [place] [phone] Referral ID Status Reason Start Date Expiration Date Visits Requ ested Visits Authorized [id number] Closed 02/06/2021 02/06/2022 1 1 Encounter Details Date Type Department Care Team Description 02/06/2021 Clinical Support Division of Rob Mata, M.B.B.S., Ph.D. [address] [place] [phone] Asthma Chronic (HCC) Allergic Diseases Aidee Mast R.N. in [place], [place] [address] [place] [phone] Social History Tobacco Use Types Packs/Day Years [...] more drinks on one Never 02/04/2022 occasion? Social Isolation Answer Date Recorded In a typical week, how many times do you More than three guido es a week 02/04/2022 talk on the phone with family, friends, or neighbors? How often do you get together with friends Twice a week 02/04/2022 or relatives? How often do you attend jew or More than 4 times per year 02/04/2022 synagogue services? Do you belong to any clubs or Yes 02/04/2022 organizations such as jew groups, unions, fraternal or athletic groups, or [...] place to sleep or slept in a senior living (including now)? Education Answer Date Recorded What [...]
--- OUTSIDE RECORDS SUMMARY | 2022-07-05 09:30 | XMS_ITS | Encounter Summary ---
:1955 Author Organization [facility] Address [address] [place] [address] Care Team Providers Name Role Phone Unavailable Primary Care Provider Unavailable Encounter Details Date Type Department Care Team Description 02/05/2021 Clinical Communication Division of Allergic Divekar, R trinityit D, Diseases in [place], MSandraBSandraB.S., Ph.D. [place] [address] [address] [facility] [address] [place] [phone] Social History Tobacco Use Types Packs/Day Years [...] or relatives? How often do you attend mormonism or More than 4 times per year 02/04/2022 hinduism services? Do you belong to any clubs or Yes 02/04/2022 organizations such as mormonism groups, unions, fraternal or athletic groups, or [...]
--- OUTSIDE RECORDS SUMMARY | 2022-07-05 09:30 | XMS_ITS | Encounter Summary ---
:1955 Author Organization [facility] Address [address] [place] [address] Care Team Providers Name Role Phone Unavailable Primary Care Provider Unavailable Reason for Visit Reason Comments Med Refill Encounter Details Date Type Department Care Team Description 02/24/2021 Refill Division of Allergic Diseases Radha Mata, Med Refill in [facility] bart Robles, Ph.D. [address] [facility] [address] [place] [address] [place] [address] [phone] (Wo rk) Social History Tobacco Use Types [...] or relatives? How often do you attend jainism or More than 4 times per year 02/04/2022 protestant services? Do you belong to any clubs or Yes 02/04/2022 organizations such as jainism groups, unions, fraternal or athletic groups, or [...]
--- OUTSIDE RECORDS SUMMARY | 2022-07-05 09:30 | XMS_ITS | Clinical Summary ---
:1955 Author Organization [facility] Address [address] [place] [address] Care Team Providers Name Role Phone Elsewhere, Pcp Primary Care Provider Unavailable Source Comments Patient records contain information from all sites at [facility]. For routine questions regarding patient records, call [phone] during business hours, M-F 8:00 AM - 5:00 PM Central Time. Record requests for emergency care only can be directed to [phone] at any time.[facility] Allergies Active Allergy Reactions Severity Noted Date Comments Sulfa (Sulfonamide Antibiotics) Hives 3 Medications Medication Sig Dispensed Refills Start Date End Date Status fexofenadine (WYATT) Take 1 tablet by 0 01/15/2013 Active 180 mg tablet mouth daily. olopatadine (PATANOL) 1 drop as needed. 0 01/15/2013 Active 0.1 % ophthalmic solution SUMAtriptan (IMITREX) Take 50 mg by 0 Active 50 mg tablet mouth as needed for migraine. May repeat in 2 hours if no relief. Max 2 doses/24 hrs albuterol (PROVENTIL Inhale as needed 0 Active HFA,VENTOLIN HFA) 90 for wheezing. mcg/actuation inhaler nitrofurantoin Take 100 mg by 0 01/05/2020 Active monohydrate (MACROBID) mouth as directed. 100 mg capsule albuterol Inhale 1-2 puffs 1 Inhaler 11 02/14/2020 Ac tive inhalerIndications: every 4 (four) Asthma Mild Persistent hours as needed (HCC) for wheezing or shortness of breath. fluticasone propionate INHALE 2 SPRAYS IN 48 g 3 01/03/20 22 Active (FLONASE) 50 EACH NOSTRIL DAILY mcg/actuation nasal sprayIndications: Rhinitis Allergic budesonide-formoteroL Inhale 1 puff 30.6 g 3 02/04/2022 Active (Symbicort) 160-4.5 daily. Rinse mouth mcg/actuation with water after inhalerIndications: use to reduce Asthma Mild Persistent aftertaste and (HCC), Rhinitis incidence of Allergic candidiasis. Do not swallow. 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 Emilie Spencer, R.N. 04/23/2022 Clinical Support Allergy and Immunology Rob Mata, Rhinitis Allergic M.B.B.S., Ph.D. Emilie Spencer, R.N. from Last 3 Months Immunizations Name Administration [...] daria gonzalez Relation Name Status Comments Father kina montero Mother jelani cole Mother's Brother patricia gilliam Son daria gonzalez Social History Tobacco Use Types Packs/Day Years Used Date Smoking Tobacco: Former Cigarettes 0.3 20 12/1973 - 07/28/1995 Smokeless Tobacco: Never Tobacco Cessation: Counseling Given: Not Answered Alcohol Use Standard Drinks/Week Comments Yes 0 [...] More than 4 times per year 02/04/2022 judaism services? Do you belong to any clubs or Yes 02/04/2022 organizations such as yarsanism groups, unions, fraCommand Information or athletic groups, or school groups? How [...] place to sleep or slept in a mcc (including now)? Education Answer Date Recorded What [...] - Inhaled Oxygen Concentration - - Weight 65.1 kg (143 lb 8.3 oz) 04/23/2022 10:44 AM CDT Height 158.4 cm (5' 2.36) 04/23/2022 10:44 AM CDT Body Mass Index 25.95 04/23/2022 10:44 AM CDT Plan of Treatment Health Maintenance Due Date Last Done Comments CT Colonography 1955 Cervical Cancer Screening 1955 Cologuard 1955 Colonoscopy 1955 Colorectal Cancer Surveillance 1955 Fasting Glucose for Diabetes 1955 Screening HIV Screening 1955 Hepatitis C Screening 1955 Lipid (Cholesterol) Screening 1955 Mammogram 1955 Pneumococcal vaccine (0-64 years) 10/16/1963 (1 - PCV) Zoster Vaccines (1 of 2) 10/16/2007 DTaP,Tdap,and Td Vaccines (2 - Td 04/09/2021 04/09/2011, or Tdap) Depression Screening (Annual 07/28/2021 PHQ-2) COVID-19 Vaccine Completed 05/05/2022, 11/06/2021, 05/28/2021, Additional history exists Influenza Vaccine Completed 05/05/2022, 05/10/2021, 05/09/2020, Additional history exists Procedures Procedure Name Priority Date/Time Associated Comments Diagnosis ALI NORTHERN SKIN TEST Routine 04/23/2022 11:30 Rhinitis Aller gic Results for this AM CDT procedure are i n the results section. ALI BASIC SKIN TEST Routine 04/23/2022 11:30 Rhinitis Allergic Results for this AM CDT procedure are i n the results section. VA BRONCHODILATION Routine 04/23/2022 10:43 Rhinitis Allergic Results for this RESPONSIVENESS AM CDT procedure are in the results section. from Last 3 Months Results Northern Skin Test (04/23/2022 11:30 AM CDT) Narrative MMODAL - 04/23/2022 11:30 AM CDT Koko Rangel M.D. ? 04/23/2022 11:54 AM Panel Skin Tests ?? Flowsheet Row Clinical Support from 04/23 in Division of Allergic Diseases in [facility] a Controls ?? Prick Control 0 Histamine (15 min W/F) 6x7f Glycerine (15 min W/F) 0 Basic Panel ?? Cat Hair 0 Cockroach mix (Scottish & Norwegian) 0 Dog AP 5x5f D.F. Mite 7x8f D.P. Mite 8x9f Horse 0 Alternaria Alternata 0 Aspergillus Fumigatus 0 Bipolaris Sorokiniana 0 Chaetomium Globosum 0 Curvularia Spicifera (Drechslera Spicife ra) 0 Epicoccum 0 Fusarium 0 Geotrichum 0 Helminthosporium 0 Hormodendrum/Clad (Cladosporium Cladospo rioides) 0 Mucor Racemosus 0 Penicillium Mix 0 Phoma Herbarum 0 Pullularia 0 Rhizopus Stolonifer 0 Stemphylium Solani 0 Northern Panel ?? Igor, White 0 Birch 0 [place], Red 0 [place], Eastern 0 Elm, Scottish 0 Maple 0 [place], Black 0 Head Waters 0 [place], White 0 Herman, Scottish 0 Bermuda 0 [place] Blue 0 Orchard 0 Arnol 0 Kochia 0 Sharpe's Quarters 0 Briggs Elder, Burweed 0 Mugwort, Common 0 Plantain, Korean 0 Rough Pigweed 0 Congolese thistle 0 Short Ragweed 3x3f [place], Sheep Red 0 Patient reports taking Tylenol PM last o n 04/21/22. Skin test positive. Clinical correlation recommended and allergy consult, if clinically indicated. Rob Robles, Ph.D. PROCEDURE/MINOR SURGIC AL ORDERABLES Performing Organization Address City/State/ZIP Code Phon e Number MMODAL MMODAL NA Basic Skin Test (04/23/2022 11:30 AM CDT) Narrative MMODAL - 04/23/2022 11:30 AM CDT Koko Rangel M.D. ? 04/23/2022 11:54 AM Panel Skin Tests ?? Flowsheet Row Clinical Support from 04/23 in Division of Allergic Diseases in [facility] a Controls ?? Prick Control 0 Histamine (15 min W/F) 6x7f Glycerine (15 min W/F) 0 Basic Panel ?? Cat Hair 0 Cockroach mix (Scottish & Norwegian) 0 Dog AP 5x5f D.F. Mite 7x8f D.P. Mite 8x9f Horse 0 Alternaria Alternata 0 Aspergillus Fumigatus 0 Bipolaris Sorokiniana 0 Chaetomium Globosum 0 Curvularia Spicifera (Drechslera Spicife ra) 0 Epicoccum 0 Fusarium 0 Geotrichum 0 Helminthosporium 0 Hormodendrum/Clad (Cladosporium Cladospo rioides) 0 Mucor Racemosus 0 Penicillium Mix 0 Phoma Herbarum 0 Pullularia 0 Rhizopus Stolonifer 0 Stemphylium Solani 0 Northern Panel ?? Igor, White 0 Birch 0 [place], Red 0 [place], Eastern 0 Elm, Scottish 0 Maple 0 [place], Black 0 Head Waters 0 [place], White 0 Herman, Scottish 0 Berm[place] 0 Kentucky Blue 0 Orchard 0 Arnol 0 Kochia 0 Sharpe's Quarters 0 Briggs Elder, Burweed 0 Mugwort, Common 0 Plantain, Korean 0 Rough Pigweed 0 Congolese thistle 0 Short Ragweed 3x3f [place], Sheep Red 0 Patient reports taking Tylenol PM last o n 04/21/22. Skin test positive. Clinical correlation recommended and allergy consult, if clinically indicated. Rob Robles, Ph.D. PROCEDURE/MINOR SURGIC AL ORDERABLES Performing Organization Address City/State/ZIP Code Phon e Number MMODAL MMODAL NA Spirometry (04/23/2022 10:43 AM CDT) Analysis Performed At Patho logist Time Signature VC MAX POST 2.56 L 05/03/2022 [facility] 8:21 AM CDT SUITE PostFVC 2.56 L 05/03/2022 [facility] 8:21 AM CDT SUITE PostFEV1 1.99 L 05/03/2022 [facility] 8:21 AM CDT SUITE FEV1/FVC POST 77.95 % 05/03/2022 [facility] 8:21 AM CDT SUITE FEF 25-75 % 1.70 L/s 05/03/2022 [facility] 8:21 AM CDT SUITE PEF POST 7.37 L/s 05/03/2022 [facility] 8:21 AM CDT SUITE FET POST 10.32 sec 05/03/2022 [facility] 8:21 AM CDT SUITE VC MAX PRE 2.47 L 05/03/2022 [facility] 8:21 AM CDT SUITE FVC 2.47 L 05/03/2022 [facility] 8:21 AM CDT SUITE FEV1 1.94 L 05/03/2022 [facility] 8:21 AM CDT SUITE FEV1/FVC 78.56 % 05/03/2022 [facility] 8:21 AM CDT SUITE ROU30-90% 1.72 L/s 05/03/2022 [facility] 8:21 AM CDT SUITE PEF PRE 7.01 L/s 05/03/2022 [facility] 8:21 AM CDT SUITE FET PRE 12.82 sec 05/03/2022 [facility] 8:21 AM CDT SUITE SUBSTANCE POST Albuterol 05/03/2022 [facility] 8:21 AM CDT SUITE DOSE POST 2 Puff 05/03/2022 [facility] 8:21 AM CDT SUITE % PRED VC MAX 86 % % 05/03/2022 [facility] 8:21 AM CDT SUITE FVC% 86 % % 05/03/2022 [facility] 8:21 AM CDT SUITE FEV1% 86 % % 05/03/2022 [facility] 8:21 AM CDT SUITE % PRED 99 % % 05/03/2022 [facility] FEV1/FVC 8:21 AM CDT SUITE % PRED FEF 86 % % 05/03/2022 [facility] 25-75% 8:21 AM CDT SUITE % PRED PEF 129 % % 05/03/2022 [facility] 8:21 AM CDT SUITE PRED VC MAX 2.85 05/03/2022 [facility] 8:21 AM CDT SUITE PRED FVC 2.85 05/03/2022 [facility] 8:21 AM CDT SUITE PRED FEV 1 2.24 05/03/2022 [facility] 8:21 AM CDT SUITE PRED FEV1/FVC 79.0 05/03/2022 [facility] 8:21 AM CDT SUITE PRED FEF 2.01 05/03/2022 [facility] 25-75% 8:21 AM CDT SUITE PRED PEF 5.4 05/03/2022 [facility] 8:21 AM CDT SUITE Specimen (Source) Anatomical Collection Method Collection Time Re ceived Time Location / / Volume Laterality 04/23/2022 10:43 AM CDT Impressions [facility] SUITE - 05/03/2022 8:21 AM C DT Within normal limits. ^ ^ Narrative This result has an attachment that is no t available. Procedure Note Koko Rangel M.D. - 05/03/2022Format ting of this note might be different from the original. IMPRESSION: Within normal limits. ^ ^ Rob Robles, Ph.D. 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
--- OUTSIDE RECORDS SUMMARY | 2022-07-05 09:30 | XMS_ITS | Encounter Summary ---
:1955 Author Organization [facility] Address [address] [place] [address] Care Team Providers Name Role Phone Unavailable Primary Care Provider Unavailable Reason for Visit Reason Comments Pre-visit Testing Orders Encounter Details Date Type Department Care Team Description 01/31/2020 Clinical Communication Division of Rob Mata Pre -visit Testing Allergic Diseases Dominic, Willam.B.B.S., Orders in [place], Ph.D. [address] [place] [phone] Social History Tobacco Use Types Packs/Day Years [...] or relatives? How often do you attend latter-day or More than 4 times per year 02/04/2022 taoism services? Do you belong to any clubs or Yes 02/04/2022 organizations such as latter-day groups, unions, fraternal or athletic groups, or [...] to sleep or slept in a senior care (including now)? Education Answer Date Recorded What [...] Answer: Asymptomatic Order Specific Question: Region Answer: [facility] [[id number]] ??? SARS-CoV-2 Total Antibody, Serum Medical Screening Standing Status: Future Standing Expiration Date: 01/30/2023 Scheduling Instructions: This is for Screening for high risk outpatient appointments and procedures; test to be done 48 hours before high risk appointment or procedure. Order Specific Question: Region Answer: [facility] [[id number]] ??? Pulmonary Function Tests Standing Status: Future Standing Expiration Date: 01/30/2023 Order Specific Question: Region Answer: [place] [facility] [[id number]] Order Specific Question: Complete PFT or Spirometry: [...] Signature VC MAX POST 2.88 L 02/14/2020 [facility] 3:03 PM CDT SUITE PostFVC 2.88 L 02/14/2020 [facility] 3:03 PM CDT SUITE PostFEV1 2.24 L 02/14/2020 [facility] 3:03 PM CDT SUITE FEV1/FVC POST 77.67 % 02/14/2020 [facility] 3:03 PM CDT SUITE FEF 25-75 % 1.95 L/s 02/14/2020 [facility] 3:03 PM CDT SUITE PEF POST 7.55 L/s 02/14/2020 [facility] 3:03 PM CDT SUITE FET POST 11.67 sec 02/14/2020 [facility] 3:03 PM CDT SUITE DLCO SINGLE 18.12 ml/(min*mm 02/14/2020 [facility] BREATH POST Hg) 3:03 PM CDT SUITE VA SINGLE 4.30 L 02/14/2020 [facility] 3:03 PM CDT SUITE VC MAX PRE 2.83 L 02/14/2020 [facility] 3:03 PM CDT SUITE FVC 2.83 L 02/14/2020 [facility] 3:03 PM CDT SUITE FEV1 2.18 L 02/14/2020 [facility] 3:03 PM CDT SUITE FEV1/FVC 76.91 % 02/14/2020 [facility] 3:03 PM CDT SUITE PMQ79-05% 1.78 L/s 02/14/2020 [facility] 3:03 PM CDT SUITE PEF PRE 7.81 L/s 02/14/2020 [facility] 3:03 PM CDT SUITE FET PRE 11.11 sec 02/14/2020 [facility] 3:03 PM CDT SUITE SUBSTANCE POST NaN 02/14/2020 [facility] 3:03 PM CDT SUITE DOSE POST NaN 02/14/2020 [facility] 3:03 PM CDT SUITE % PRED VC MAX 95.49 % 02/14/2020 [facility] 3:03 PM CDT SUITE FVC% 95.49 % 02/14/2020 [facility] 3:03 PM CDT SUITE FEV1% 93.23 % 02/14/2020 [facility] 3:03 PM CDT SUITE % PRED 97.07 % 02/14/2020 [facility] FEV1/FVC 3:03 PM CDT SUITE % PRED FEF 84.07 % 02/14/2020 [facility] 25-75% 3:03 PM CDT SUITE % PRED PEF 141.25 % 02/14/2020 [facility] 3:03 PM CDT SUITE PRED VC MAX 2.96 L 02/14/2020 [facility] 3:03 PM CDT SUITE PRED FVC 2.96 L 02/14/2020 [facility] 3:03 PM CDT SUITE PRED FEV 1 2.34 L 02/14/2020 [facility] 3:03 PM CDT SUITE PRED FEV1/FVC 79.23 % 02/14/2020 [facility] 3:03 PM CDT SUITE PRED FEF 2.12 L/s 02/14/2020 [facility] 25-75% 3:03 PM CDT SUITE PRED PEF 5.53 L/s 02/14/2020 [facility] 3:03 PM CDT SUITE Specimen (Source) Anatomical Collection Method Collection Time Re ceived Time Location / / Volume Laterality 02/14/2020 12:32 PM CDT Narrative This result has an attachment that is no t available. Rob Robles, Ph.D. PFT ORDERABLES Performing Organization Address City/State/ZIP Code Phon e Number [facility] [address] [address] [place] SARS Coronavirus-2, PCR Asymptomatic (02/12/2020 11:48 AM CDT) [facility] Method Time Signature SARS Swab, 02/12/2020 DTL [...] and its performa nce characteristics determined by [facility] in a manner co nsistent with CLIA requirements. Independent review by the U.S. Food and Drug Administration is pending. Visit the CDC website: https://www.cdc.gov/coronavirus/ ?? for the most recent guidelines on Elder virus testing. Fact Sheet for Healthcare Providers: (https://www.Kato/it-mmfil es/ Provider_Fact_Sheet_for_[facility]_COVI D-19.pdf) Fact Sheet for Patients: (https://www.Treehouse.Veracyte/it-mmfil es/ Patient_Fact_Sheet_for_COVID-19.pdf) Specimen Anatomical Collection Method Collection Time Receive d Time (Source) Location / / Volume Laterality Varies 02/12/2020 11:48 02/12/2020 (Nasopharynx) AM CDT 11:48 AM CDT Rob Robles, Ph.D. LAB MICROBIOLOGY - GEN ERAL ORDERABLES Performing Organization Address City/State/ZIP Code Phon e Number [facility] - [address] [place], [place] [address] [facility] [place] [address] [facility] [address] SARS-CoV-2 Total Antibody, Serum (02/12/2020 9:46 AM CDT) [facility] Method Time Signature SARS-CoV-2 Negative Negative 02/12/2020 [...] was performed using the [employer] [id number] Reagent assay from [employer], which has received Emergency Use Authori zation(EUA) by the U.S. Food and Drug Administration . Fact sheets for this Emergency Use Autho rization (EUA) assay can be found at the following link s: For Healthcare Providers: https://www.fda.gov/media/874191/downloa d For Patients: https://www.fda.gov/media/007713/downloa d Specimen Anatomical Collection Method Collection Time Receive d Time (Source) Location / / Volume Laterality Blood (Blood, 02/12/2020 9:46 AM 02/12/20 20 Venous) CDT 10:05 AM CDT Rob Robles, Ph.D. LAB MICROBIOLOGY - BLO OD ORDERABLES Performing Organization Address City/State/ZIP Code Phon e Number [facility] - [address] [place], [place] [address] [facility] [place] [address] [facility] [address] documented in this encounter Visit Diagnoses Diagnosis Asthma Chronic (HCC) - Primary documented in this encounter
--- OUTSIDE RECORDS SUMMARY | 2022-07-05 09:30 | XMS_ITS | Encounter Summary ---
:1955 Author Organization [facility] Address [address] [place] [address] Care Team Providers Name Role Phone Elsewhere, Pcp Primary Care Provider Unavailable Reason for Visit Reason Comments Allergy Testing Spirometry Outpatient (Routine) - Closed Specialty Diagnoses / Procedures Referred By Contact Refer red To Contact Diagnoses Rhinitis Allergic Rob Mata, [facility] Procedures Spirometry M.B.B.S., Ph.D. [address] [place] [phone] Referral ID Status Reason Start Date Expiration Date Visits Requ ested Visits Authorized [id number] Closed 02/04/2022 02/04/2023 1 1 Encounter Details Date Type Department Care Team Description 04/23/2022 Clinical Support Division of Allergic Bri Mata M.B.B.S., Ph.D. [address] [place] [phone] Rhinitis Allergic Diseases in [place], Emilie Spencer RGricelda [address] [place] [phone] [place] [address] [place] [phone] Social History Tobacco Use Types Packs/Day Years [...] or relatives? How often do you attend mormon or More than 4 times per year 02/04/2022 gnosticism services? Do you belong to any clubs or Yes 02/04/2022 organizations such as mormon groups, unions, fraternal or athletic groups, or [...] Mass Index 25.95 04/23/2022 10:44 AM CDT documented in this encounter Plan of Treatment Not on filedocumented as of this encounter Procedures Procedure Name Priority Date/Time Associated Comments Diagnosis ID BRONCHODILATION Routine 04/23/2022 10:43 Rhinitis Allergic Results for this RESPONSIVENESS AM CDT procedure are in the results section. documented in this encounter Results Spirometry (04/23/2022 10:43 AM CDT) Analysis Performed At Patho logist Time Signature VC MAX POST 2.56 L 05/03/2022 [facility] 8:21 AM CDT SUITE PostFVC 2.56 L 05/03/2022 [facility] 8:21 AM CDT SUITE PostFEV1 1.99 L 05/03/2022 [facility] 8:21 AM CDT SUITE FEV1/FVC POST 77.95 % 05/03/2022 [facility] 8:21 AM CDT SUITE FEF 25-75 % 1.70 L/s 05/03/2022 [facility] 8:21 AM CDT SUITE PEF POST 7.37 L/s 05/03/2022 [facility] 8:21 AM CDT SUITE FET POST 10.32 sec 05/03/2022 [facility] 8:21 AM CDT SUITE VC MAX PRE 2.47 L 05/03/2022 [facility] 8:21 AM CDT SUITE FVC 2.47 L 05/03/2022 [facility] 8:21 AM CDT SUITE FEV1 1.94 L 05/03/2022 [facility] 8:21 AM CDT SUITE FEV1/FVC 78.56 % 05/03/2022 [facility] 8:21 AM CDT SUITE JSY41-94% 1.72 L/s 05/03/2022 [facility] 8:21 AM CDT SUITE PEF PRE 7.01 L/s 05/03/2022 [facility] 8:21 AM CDT SUITE FET PRE 12.82 sec 05/03/2022 [facility] 8:21 AM CDT SUITE SUBSTANCE POST Albuterol 05/03/2022 [facility] 8:21 AM CDT SUITE DOSE POST 2 Puff 05/03/2022 [facility] 8:21 AM CDT SUITE % PRED VC MAX 86 % % 05/03/2022 [facility] 8:21 AM CDT SUITE FVC% 86 % % 05/03/2022 [facility] 8:21 AM CDT SUITE FEV1% 86 % % 05/03/2022 [facility] 8:21 AM CDT SUITE % PRED 99 % % 05/03/2022 [facility] FEV1/FVC 8:21 AM CDT SUITE % PRED FEF 86 % % 05/03/2022 [facility] 25-75% 8:21 AM CDT SUITE % PRED PEF 129 % % 05/03/2022 [facility] 8:21 AM CDT SUITE PRED VC MAX 2.85 05/03/2022 [facility] 8:21 AM CDT SUITE PRED FVC 2.85 05/03/2022 [facility] 8:21 AM CDT SUITE PRED FEV 1 2.24 05/03/2022 [facility] 8:21 AM CDT SUITE PRED FEV1/FVC 79.0 05/03/2022 [facility] 8:21 AM CDT SUITE PRED FEF 2.01 05/03/2022 [facility] 25-75% 8:21 AM CDT SUITE PRED PEF 5.4 05/03/2022 [facility] 8:21 AM CDT SUITE Specimen (Source) Anatomical Collection Method Collection Time Re ceived Time Location / / Volume Laterality 04/23/2022 10:43 AM CDT Impressions [facility] SUITE - 05/03/2022 8:21 AM C DT Within normal limits. ^ ^ Narrative This result has an attachment that is no t available. Procedure Note Koko Rangel M.D. - 05/03/2022Format ting of this note might be different from the original. IMPRESSION: Within normal limits. ^ ^ Rob Robles, Ph.D. PFT ORDERABLES Performing Organization Address City/State/ZIP Code Phon e Number [facility] [address] documented in this encounter Visit Diagnoses Diagnosis Rhinitis Allergic documented in this encounter Care Teams Tying Machine Operator Lumber Relationship Specialty Start Date End Date Elsewhere, Pcp PCP - General Internal Medicine 01/31/22 documented as of this encounter
--- OUTSIDE RECORDS SUMMARY | 2022-07-05 09:30 | XMS_ITS | Encounter Summary ---
:1955 Author Organization [facility] Address [address] [place] [address] Care Team Providers Name Role Phone Unavailable Primary Care Provider Unavailable Reason for Visit Reason Comments Med Refill Encounter Details Date Type Department Care Team Description 01/02/2022 Refill Division of Allergic Diseases Radha Mata, Med Refill in [facility] bart Robles, Ph.D. [address] [facility] [address] [place] [phone] [place] [address] [phone] (Wo rk) Social History Tobacco Use Types [...] More than 4 times per year 02/04/2022 anabaptism services? Do you belong to any clubs [...]
--- OUTSIDE RECORDS SUMMARY | 2022-07-05 09:30 | XMS_ITS | Encounter Summary ---
:1955 Author Organization [facility] Address [address] [place] [address] Care Team Providers Name Role Phone Unavailable Primary Care Provider Unavailable Reason for Visit Reason Comments Med Refill Encounter Details Date Type Department Care Team Description 02/05/2020 Refill Division of Allergic Diseases Radha Mata, Med Refill in [facility] bart Robles, Ph.D. [address] [facility] [address] [place] [address] [place] [address] [phone] (Wo rk) Social History Tobacco Use Types [...] or relatives? How often do you attend hinduism or More than 4 times per year 02/04/2022 anabaptism services? Do you belong to any clubs or Yes 02/04/2022 organizations such as hinduism groups, unions, fraternal or athletic groups, or [...]
--- OUTSIDE RECORDS SUMMARY | 2022-07-05 09:30 | XMS_ITS | Encounter Summary ---
:1955 Author Organization [facility] Address [address] [place] [phone] Care Team Providers Name Role Phone Elsewhere, Pcp Primary Care Provider Unavailable Reason for Visit Reason Comments Allergy Testing Outpatient (Routine) - Closed Specialty Diagnoses / Procedures Referred By Contact Refer red To Contact Diagnoses Rhinitis Allergic Rob Mata, [facility] Procedures Northern Skin Test M.B.B.S., Ph.D. [address] [place] [phone] Referral ID Status Reason Start Date Expiration Date Visits Requ ested Visits Authorized [id number] Closed 02/04/2022 02/04/2023 1 1 Encounter Details Date Type Department Care Team Description 04/23/2022 Clinical Support Division of Allergic Bri Mata M.B.B.S., Ph.D. [address] [place] [address] [phone] Rhinitis Allergic Diseases in [place], Emilie Spencer R.N. [address] [place] [address] [phone] [place] [address] [place] [phone] Social History Tobacco Use Types Packs/Day Years [...] place to sleep or slept in a prison (including now)? Education Answer Date Recorded What is the highest level of school you have Some college, n o degree 03/09/2019 completed or the highest degree you have received? Sex Assigned at Date Recorded Female 02/04/2022 1:44 PM CDT documented as of this encounter Procedure Notes Koko Rangel M.D. - 04/23/2022 11:30 AM CDTAssociated Order(s): ALI BASIC SKIN TEST; ALI NORTHERN SKIN TEST Panel Skin Tests Flowsheet Row Clinical Support from 04/23/2022 in Division of Allergic Diseases in [place], [place] Controls Prick Control 0 Histamine (15 min W/F) 6x7f Glycerine (15 min W/F) 0 Basic Panel Cat Hair 0 Cockroach mix (Ugandan & Marshallese) 0 Dog AP 5x5f D.F. Mite 7x8f D.P. Mite 8x9f Horse 0 Alternaria Alternata 0 Aspergillus Fumigatus 0 Bipolaris Sorokiniana 0 Chaetomium Globosum 0 Curvularia Spicifera (Drechslera Spicifera) 0 Epicoccum 0 Fusarium 0 Geotrichum 0 Helminthosporium 0 Hormodendrum/Clad (Cladosporium Cladosporioides) 0 Mucor Racemosus 0 Penicillium Mix 0 Phoma Herbarum 0 Pullularia 0 Rhizopus Stolonifer 0 Stemphylium Solani 0 Northern Panel Igor, White 0 Birch 0 Wallace, Red 0 [place]erl[place], Eastern 0 Elm, Ugandan 0 Maple 0 [place], Black 0 [place] 0 [place], White 0 [place], Ugandan 0 Bermuda 0 Kentucky Blue 0 Orchard 0 Arnol 0 Kochia 0 Sharpe's Quarters 0 Briggs Elder, Burweed 0 Mugwort, Common 0 Plantain, St Luc[place] 0 Rough Pigweed 0 Costa Rican thistle 0 Short Ragweed 3x3f [place], Sheep Red 0 Patient reports taking Tylenol PM last on 04/21/22. Skin test positive. Clinical correlation recommended and allergy consult, if clinically indicated. documented in this encounter Plan of Treatment Not on filedocumented as of this encounter Procedures Procedure Name Priority Date/Time Associated Diagnosis Comme nts ALI NORTHERN SKIN Routine 04/23/2022 11:30 AM Rhinitis Allergi c Results for this TEST CDT procedure are i n the results section. ALI BASIC SKIN TEST Routine 04/23/2022 11:30 AM Rhinitis Aller gic Results for this CDT procedure are i n the results section. documented in this encounter Results Northern Skin Test (04/23/2022 11:30 AM CDT) Narrative MMODAL - 04/23/2022 11:30 AM CDT Koko Rangel M.D. ? 04/23/2022 11:54 AM Panel Skin Tests ?? Flowsheet Row Clinical Support from 04/23 in Division of Allergic Diseases in [facility] a Controls ?? Prick Control 0 Histamine (15 min W/F) 6x7f Glycerine (15 min W/F) 0 Basic Panel ?? Cat Hair 0 Cockroach mix (Ugandan & Marshallese) 0 Dog AP 5x5f D.F. Mite 7x8f [...] Panel ?? Igor, White 0 Birch 0 Wallace, Red 0 [place], Eastern 0 Elm, Ugandan 0 Maple 0 [place], Black 0 [place] 0 [place], White 0 [place], Ugandan 0 Berm[place] 0 Kentucky Blue 0 Orchard 0 Arnol 0 Kochia 0 Sharpe's Quarters 0 Briggs Elder, Burweed 0 Mugwort, Common 0 Plantain, St [place] 0 Rough Pigweed 0 Costa Rican thistle 0 Short Ragweed 3x3f [place], Sheep Red 0 Patient reports taking Tylenol PM last o n 04/21/22. Skin test positive. Clinical correlation recommended and allergy consult, if clinically indicated. Rob NunezBSandraSSandra, Ph.D. PROCEDURE/MINOR SURGIC AL ORDERABLES Performing Organization Address City/State/ZIP Code Phon e Number MMODAL MMODAL NA Basic Skin Test (04/23/2022 11:30 AM CDT) Narrative MMODAL - 04/23/2022 11:30 AM CDT Koko Rangel M.D. ? 04/23/2022 11:54 AM Panel Skin Tests ?? Flowsheet Row Clinical Support from 04/23 in Division of Allergic Diseases in [facility] a Controls ?? Prick Control 0 Histamine (15 min W/F) 6x7f Glycerine (15 min W/F) 0 Basic Panel ?? Cat Hair 0 Cockroach mix (Ugandan & Marshallese) 0 Dog AP 5x5f D.F. Mite 7x8f [...] Panel ?? Igor, White 0 Birch 0 Wallace, Red 0 [place], Eastern 0 Elm, Ugandan 0 Maple 0 [place], Black 0 [place] 0 [place], White 0 [place], Ugandan 0 Bermuda 0 Kentucky Blue 0 Orchard 0 Arnol 0 Kochia 0 Sharpe's Quarters 0 Briggs Elder, Burweed 0 Mugwort, Common 0 Plantain, St Lucian 0 Rough Pigweed 0 Costa Rican thistle 0 Short Ragweed 3x3f [place], Sheep Red 0 Patient reports taking Tylenol PM last o n 04/21/22. Skin test positive. Clinical correlation recommended and allergy consult, if clinically indicated. Rob NunezBSandraSSandra, Ph.D. PROCEDURE/MINOR SURGIC AL ORDERABLES Performing Organization Address City/State/ZIP Code Phon e Number MMODAL MMODAL NA documented in this encounter Visit Diagnoses Diagnosis Rhinitis Allergic documented in this encounter Care Teams Commutator Repairer Relationship Specialty Start Date End Date Elsewhere, Pcp PCP - General Internal Medicine 01/31/22 documented as of this encounter
--- OUTSIDE RECORDS SUMMARY | 2022-07-05 09:30 | XMS_ITS | Encounter Summary ---
:1955 Author Organization [facility] Address [address] [place] [address] Care Team Providers Name Role Phone Elsewhere, Pcp Primary Care Provider Unavailable Reason for Referral Outpatient (Routine) - Closed Specialty Diagnoses / Procedures Referred By Contact Refer red To Contact Diagnoses [facility]initis [facility] Procedures Northern Skin Test Willam.BSandraB.SSandra, Ph.D. 200 [place] [phone] Referral ID Status Reason Start Date Expiration Date Visits Requ ested Visits Authorized [id number] Closed 02/04/2022 02/04/2023 1 1 utpatient (Routine) - Closed Specialty Diagnoses / Procedures Referred By Contact Refer red To Contact Diagnoses Rhinitis Allergic Rob Mata [facility] Procedures Basic Skin Test M.B.B.S., Ph.D. 200 [place] [phone] Referral ID Status Reason Start Date Expiration Date Visits Requ ested Visits Authorized [id number] Closed 02/04/2022 02/04/2023 1 1 utpatient (Routine) - Closed Specialty Diagnoses / Procedures Referred By Contact Refer red To Contact Diagnoses Rhinitis Allergic Rob Mata, [place] Procedures Spirometry Travis, Ph.D. [address] [place] [phone] Referral ID Status Reason Start Date Expiration Date Visits Requ ested Visits Authorized [id number] Closed 02/04/2022 02/04/2023 1 1 Reason for Visit Appointment Request (Routine) - Closed Specialty Diagnoses / Procedures Referred By Contact Refer red To Contact Allergy and Immunology Diagnoses Asthma (HCC) Rob Mata M.B.B.S., Ph.D. [address] [place] [phone] Referral ID Status Reason Start Date Expiration Date Visits Requ ested Visits Authorized [id number] Closed 01/02/2022 01/02/2023 1 1 Encounter Details Date Type Department Care Team Description 02/04/2022 Telemedicine Division of Allergic Rob Mata, initis Allergic (Primary Dx); Diseases in [place], Travis, Ph.D. Asthma Mild Persistent (HCC) [address] [phone] Social History Tobacco Use Types Packs/Day [...] More than 4 times per year 02/04/2022 tenriism services? Do you belong to any clubs or Yes 02/04/2022 organizations such as gnosticism groups, unions, fraKutuan or athletic groups, or school groups? How [...] Consult conducted via real-time audio/video technology by Enrique MercadoBEn., Ph.D. in [facility] to the Ms. Gonzalez in [facility] [phone] documented in this encounter Plan of Treatment Not on filedocumented as of this encounter Results Northern Skin Test (04/23/2022 11:30 AM CDT) Narrative MMODAL - 04/23/2022 11:30 AM CDT Koko Rangel M.D. ? 04/23/2022 11:54 AM Panel Skin Tests ?? Flowsheet Row Clinical Support from 04/23 in Division of Allergic Diseases in [facility] a Controls ?? Prick Control 0 Histamine (15 min W/F) 6x7f Glycerine (15 min W/F) 0 Basic Panel ?? Cat Hair 0 Cockroach mix (Swiss & Pakistani) 0 Dog AP 5x5f D.F. Mite 7x8f [...] Panel ?? Igor, White 0 Birch 0 Faulk, Red 0 Sunflower, Eastern 0 Elm, Swiss 0 Maple 0 [place], Black 0 [place] 0 [place], White 0 Ebony, Swiss 0 Berm[place] 0 Kentucky Blue 0 Orchard 0 Arnol 0 Kochia 0 Sharpe's Quarters 0 Briggs Elder, Burweed 0 Mugwort, Common 0 Plantain, Micronesian 0 Rough Pigweed 0 Lao thistle 0 Short Ragweed 3x3f [place], Sheep Red 0 Patient reports taking Tylenol [...] Tests ?? Flowsheet Row Clinical Support from 9/27 /2022 in Division of Allergic Diseases in [facility] a Controls ?? Prick Control 0 Histamine (15 min W/F) 6x7f Glycerine (15 min W/F) 0 Basic Panel ?? Cat Hair 0 Cockroach mix (Swiss & Pakistani) 0 Dog AP 5x5f D.F. Mite 7x8f [...] Panel ?? Igor, White 0 Birch 0 Faulk, Red 0 Sunflower, Eastern 0 Elm, Swiss 0 Maple 0 [place], Black 0 [place] 0 [place], White 0 Ebony, Swiss 0 Berm[place] 0 Kentucky Blue 0 Orchard 0 Arnol 0 Kochia 0 Sharpe's Quarters 0 Briggs Elder, Burweed 0 Mugwort, Common 0 Plantain, Micronesian 0 Rough Pigweed 0 Lao thistle 0 Short Ragweed 3x3f [place], Sheep Red 0 Patient reports taking Tylenol PM last o n 04/21/22. Skin test positive. Clinical correlation recommended and allergy consult, if clinically indicated. Rob NunezBSandraSSandra, Ph.D. PROCEDURE/MINOR SURGIC AL ORDERABLES Performing Organization Address City/State/ZIP Code Phon e Number MMODAL MMODAL NA Spirometry (04/23/2022 10:43 AM CDT) Analysis Performed At Patho logist Time Signature VC MAX POST 2.56 L 05/03/2022 [facility] 8:21 AM CDT SUITE PostFVC 2.56 L 05/03/2022 [facility] 8:21 AM CDT SUITE PostFEV1 1.99 L 05/03/2022 [facility] 8:21 AM CDT SUITE FEV1/FVC POST 77.95 % 05/03/2022 [facility] 8:21 AM CDT SUITE FEF 25-75 % 1.70 L/s 05/03/2022 [facility] 8:21 AM CDT SUITE PEF POST 7.37 L/s 05/03/2022 [facility] 8:21 AM CDT SUITE FET POST 10.32 sec 05/03/2022 [facility] 8:21 AM CDT SUITE VC MAX PRE 2.47 L 05/03/2022 [facility] 8:21 AM CDT SUITE FVC 2.47 L 05/03/2022 [facility] 8:21 AM CDT SUITE FEV1 1.94 L 05/03/2022 [facility] 8:21 AM CDT SUITE FEV1/FVC 78.56 % 05/03/2022 [facility] 8:21 AM CDT SUITE DFM51-55% 1.72 L/s 05/03/2022 [facility] 8:21 AM CDT SUITE PEF PRE 7.01 L/s 05/03/2022 [facility] 8:21 AM CDT SUITE FET PRE 12.82 sec 05/03/2022 [facility] 8:21 AM CDT SUITE SUBSTANCE POST Albuterol 05/03/2022 [facility] 8:21 AM CDT SUITE DOSE POST 2 Puff 05/03/2022 [facility] 8:21 AM CDT SUITE % PRED VC MAX 86 % % 05/03/2022 [facility] 8:21 AM CDT SUITE FVC% 86 % % 05/03/2022 [facility] 8:21 AM CDT SUITE FEV1% 86 % % 05/03/2022 [facility] 8:21 AM CDT SUITE % PRED 99 % % 05/03/2022 [facility] FEV[facility]/FVC 8:21 AM CDT SUITE % PRED FEF 86 % % 05/03/2022 [facility] 25-75% 8:21 AM CDT SUITE % PRED PEF 129 % % 05/03/2022 [facility] 8:21 AM CDT SUITE PRED VC MAX 2.85 05/03/2022 [facility] 8:21 AM CDT SUITE PRED FVC 2.85 05/03/2022 [facility] 8:21 AM CDT SUITE PRED FEV 1 2.24 05/03/2022 [facility] 8:21 AM CDT SUITE PRED FEV1/FVC 79.0 05/03/2022 [facility] 8:21 AM CDT SUITE PRED FEF 2.01 05/03/2022 [facility] 25-75% 8:21 AM CDT SUITE PRED PEF 5.4 05/03/2022 [facility] 8:21 AM CDT SUITE Specimen (Source) Anatomical Collection Method Collection Time Re ceived Time Location / / Volume Laterality 04/23/2022 10:43 AM CDT Impressions [facility] SUITE - 05/03/2022 8:21 AM C DT Within normal limits. ^ ^ Narrative This result has an attachment that is no t available. Procedure Note Koko Rangel M.D. - 05/03/2022Format ting of this note might be different from the original. IMPRESSION: Within normal limits. ^ ^ Rob TorreS., Ph.D. PFT ORDERABLES Performing Organization Address City/State/ZIP Code Phon e Number [facility] NA documented in this encounter Visit Diagnoses Diagnosis Rhinitis Allergic - Primary Asthma Mild Persistent (HCC) Rhinitis Allergic Rhinitis Allergic documented in this encounter Care Teams Compugraph Operator Relationship Specialty Start Date End Date Elsewhere, Pcp PCP - General Internal Medicine 01/31/22 documented as of this encounter
--- OUTSIDE RECORDS SUMMARY | 2022-07-05 09:30 | XMS_ITS | Encounter Summary ---
:1955 Author Organization [facility] Address [address] [place] [address] Care Team Providers Name Role Phone Unavailable Primary Care Provider Unavailable Reason for Referral Outpatient (Routine) - Closed Specialty Diagnoses / Procedures Referred By Contact Refer red To Contact Diagnoses Asthma Chronic (HCC) Rob Mata, [facility] Procedures Spirometry EnriqueBKarely, Ph.D. [address] [place] [phone] Referral ID Status Reason Start Date Expiration Date Visits Requ ested Visits Authorized [id number] Closed 11/21/2020 11/21/2021 1 1 Encounter Details Date Type Department Care Team Description 11/21/2020 Clinical Communication Division of Allergic Bri Mata, Diseases in [place], EnriqueBKarely, Ph.D. [address] [place] [address] [phone] Social History Tobacco Use Types Packs/Day [...] or relatives? How often do you attend christianity or More than 4 times per year 02/04/2022 adventist services? Do you belong to any clubs or Yes 02/04/2022 organizations such as christianity groups, unions, fraternal or athletic groups, or [...] (02/06/2021 1:55 PM CDT) Analysis Performed At Patho logist Time Signature VC MAX POST 2.57 L 02/06/2021 [facility] 4:42 PM CDT SUITE PostFVC 2.57 L 02/06/2021 [facility] 4:42 PM CDT SUITE PostFEV1 2.07 L 02/06/2021 [facility] 4:42 PM CDT SUITE FEV1/FVC POST 80.45 % 02/06/2021 [facility] 4:42 PM CDT SUITE FEF 25-75 % 2.02 L/s 02/06/2021 [facility] POST 4:42 PM CDT SUITE PEF POST 7.16 L/s 02/06/2021 [facility] 4:42 PM CDT SUITE FET POST 8.48 sec 02/06/2021 [facility] 4:42 PM CDT SUITE VC MAX PRE 2.54 L 02/06/2021 [facility] 4:42 PM CDT SUITE FVC 2.54 L 02/06/2021 [facility] 4:42 PM CDT SUITE FEV1 1.99 L 02/06/2021 [facility] 4:42 PM CDT SUITE FEV1/FVC 78.49 % 02/06/2021 [facility] 4:42 PM CDT SUITE QVY14-50% 1.81 L/s 02/06/2021 [facility] 4:42 PM CDT SUITE PEF PRE 7.01 L/s 02/06/2021 [facility] 4:42 PM CDT SUITE FET PRE 7.92 sec 02/06/2021 [facility] 4:42 PM CDT SUITE SUBSTANCE POST Albuterol 02/06/2021 [facility] 4:42 PM CDT SUITE DOSE POST 2 Puff 02/06/2021 [facility] 4:42 PM CDT SUITE % PRED VC MAX 93 % % 02/06/2021 [facility] 4:42 PM CDT SUITE FVC% 93 % % 02/06/2021 [facility] 4:42 PM CDT SUITE FEV1% 92 % % 02/06/2021 [facility] 4:42 PM CDT SUITE % PRED 99 % % 02/06/2021 [facility] FEV1/FVC 4:42 PM CDT SUITE % PRED FEF 91 % % 02/06/2021 [facility] 25-75% 4:42 PM CDT SUITE % PRED PEF 133 % % 02/06/2021 [facility] 4:42 PM CDT SUITE PRED VC MAX 2.73 02/06/2021 [facility] 4:42 PM CDT SUITE PRED FVC 2.73 02/06/2021 [facility] 4:42 PM CDT SUITE PRED FEV 1 2.16 02/06/2021 [facility] 4:42 PM CDT SUITE PRED FEV1/FVC 79.4 02/06/2021 [facility] 4:42 PM CDT SUITE PRED FEF 1.98 02/06/2021 [facility] 25-75% 4:42 PM CDT SUITE PRED PEF 5.3 02/06/2021 [facility] 4:42 PM CDT SUITE Specimen (Source) Anatomical Collection Method Collection Time Re ceived Time Location / / Volume Laterality 02/06/2021 1:55 PM CDT Narrative This result has an attachment that is no t available. Rob Robles, Ph.D. PFT ORDERABLES Performing Organization Address City/State/ZIP Code Phon e Number [facility] SUITE NA documented in this encounter Visit Diagnoses Diagnosis Asthma Chronic (HCC) - Primary documented in this encounter
--- OUTSIDE RECORDS SUMMARY | 2022-07-05 09:30 | XMS_ITS | Encounter Summary ---
:1955 Author Organization [facility] Address [address] [place] [address] Care Team Providers Name Role Phone Unavailable Primary Care Provider Unavailable Reason for Visit Outpatient (Routine) - Closed Specialty Diagnoses / Procedures Referred By Contact Refer red To Contact Allergy and Immunology Diagnoses Asthma Mild Persistent [facility]) [facility]. [address] [place] [phone] Referral ID Status Reason Start Date Expiration Date Visits Requ ested Visits Authorized [id number] Closed 03/09/2019 03/08/2020 1 1 Encounter Details Date Type Department Care Team Description 02/14/2020 Office Visit Division of Allergic Rob Mata, initis Allergic (Primary Dx); Diseases in [facility] M.B.B.S., Ph.D. Asthma Mild Persistent (HCC) [place] [address] [facility] [address] [place] [phone] Social History Tobacco Use Types Packs/Day [...] or relatives? How often do you attend catholic or More than 4 times per year 02/04/2022 presybeterian services? Do you belong to any clubs or Yes 02/04/2022 organizations such as catholic groups, unions, fraternal or athletic groups, or [...] been referred by Rob Mata M.B.BSandraS., Ph.D. [address] [place] [phone] HPI: Here for asthma follow-up. Doing quite well. Has been using Symbicort 160- 4.51 puff once a day.There was the brief time earlier this year when she had a worsening of her respiratory symptoms withtightness. She used her albuterol as rescue and that resolved promptly. She was able to travel to [place] to visit her parents and good to [...]
--- OUTSIDE RECORDS SUMMARY | 2022-07-05 09:30 | XMS_ITS | Encounter Summary ---
:1955 Author Organization [facility] Address [address] [place] [address] Care Team Providers Name Role Phone Elsewhere, Pcp Primary Care Provider Unavailable Reason for Visit Reason Comments Pre-visit Intake Encounter Details Date Type Department Care Team Description 01/31/2022 Clinical Communication Visit Review in Pr e-visit Intake [place], [place] [address] [place], [place] [phone] Social History Tobacco Use Types Packs/Day Years [...] More than 4 times per year 02/04/2022 denominational services? Do you belong to any clubs [...] place to sleep or slept in a fci (including now)? Education Answer Date Recorded What [...] documented as of this encounter Care Teams Biology Lecturer Relationship Specialty Start Date End Date Elsewhere, Pcp PCP - General Internal Medicine 01/31/22 documented as of this encounter
--- OUTSIDE RECORDS SUMMARY | 2022-07-05 09:30 | XMS_ITS | Encounter Summary ---
:1955 Author Organization [facility] Address [address] [place] [address] Care Team Providers Name Role Phone Unavailable Primary Care Provider Unavailable Reason for Visit Reason Comments Allergy Testing Spirometry Outpatient (Routine) - Closed Specialty Diagnoses / Procedures Referred By Contact Refer red To Contact Diagnoses Asthma Chronic (HCC) Rob Mata, [facility] Procedures Spirometry M.B.B.S., Ph.D. [address] [place] [phone] Referral ID Status Reason Start Date Expiration Date Visits Requ ested Visits Authorized [id number] Closed 11/21/2020 11/21/2021 1 1 Encounter Details Date Type Department Care Team Description 02/06/2021 Clinical Support Division of Allergic Bri Mata M.B.B.S., Ph.D. [address] [place] [phone] Asthma Chronic (HCC) Diseases in Andra Arevalo R.N. [address] [place] [phone] [place], [place] [address] [place] [phone] Social History Tobacco Use Types Packs/Day Years [...] Procedure Name Priority Date/Time Associated Comments Diagnosis GA BRONCHODILATION Routine 02/06/2021 1:55 Asthma Chronic Resu lts for this RESPONSIVENESS PM CDT (HCC) procedure are in the results section. documented in this encounter Results Spirometry (02/06/2021 1:55 PM CDT) Analysis Performed At [facility] logist Time Signature VC MAX POST 2.57 L 02/06/2021 [facility] 4:42 PM CDT SUITE PostFVC 2.57 L 02/06/2021 [facility] 4:42 PM CDT SUITE PostFEV1 2.07 L 02/06/2021 [facility] 4:42 PM CDT SUITE FEV1/FVC POST 80.45 % 02/06/2021 [facility] 4:42 PM CDT SUITE FEF 25-75 % 2.02 L/s 02/06/2021 [facility] POST 4:42 PM CDT SUITE PEF POST 7.16 L/s 02/06/2021 [facility] 4:42 PM CDT SUITE FET POST 8.48 sec 02/06/2021 [facility] 4:42 PM CDT SUITE VC MAX PRE 2.54 L 02/06/2021 [facility] 4:42 PM CDT SUITE FVC 2.54 L 02/06/2021 [facility] 4:42 PM CDT SUITE FEV1 1.99 L 02/06/2021 [facility] 4:42 PM CDT SUITE FEV1/FVC 78.49 % 02/06/2021 [facility] 4:42 PM CDT SUITE JDH49-18% 1.81 L/s 02/06/2021 [facility] PM [facility] SUITE PEF PRE 7.01 L/s 02/06/2021 [facility] 4:42 PM CDT SUITE FET PRE 7.92 sec 02/06/2021 [facility] 4:42 PM CDT SUITE SUBSTANCE POST Albuterol 02/06/2021 [facility] 4:42 PM CDT SUITE DOSE POST 2 Puff 02/06/2021 [facility] 4:42 PM CDT SUITE % PRED VC MAX 93 % % 02/06/2021 [facility] 4:42 PM CDT SUITE FVC% 93 % % 02/06/2021 [facility] 4:42 PM CDT SUITE FEV1% 92 % % 02/06/2021 [facility] 4:42 PM CDT SUITE % PRED 99 % % 02/06/2021 [facility] FEV1/FVC 4:42 PM CDT SUITE % PRED FEF 91 % % 02/06/2021 [facility] 25-75% 4:42 PM CDT SUITE % PRED PEF 133 % % 02/06/2021 [facility] 4:42 PM CDT SUITE PRED VC MAX 2.73 02/06/2021 [facility] 4:42 PM CDT SUITE PRED FVC 2.73 02/06/2021 [facility] 4:42 PM CDT SUITE PRED FEV 1 2.16 02/06/2021 [facility] 4:42 PM CDT SUITE PRED FEV1/FVC 79.4 02/06/2021 [facility] 4:42 PM CDT SUITE PRED FEF 1.98 02/06/2021 [facility] 25-75% 4:42 PM CDT SUITE PRED PEF 5.3 02/06/2021 [facility] 4:42 PM CDT SUITE Specimen (Source) Anatomical Collection Method Collection Time Re ceived Time Location / / Volume Laterality 02/06/2021 1:55 PM CDT Narrative This result has an attachment that is no t available. Rob NunezBSandraS., Ph.D. PFT ORDERABLES Performing Organization Address City/State/ZIP Code Phon e Number [facility] SUITE [facility] SUITE NA documented in this encounter Visit Diagnoses Diagnosis Asthma Chronic (HCC) documented in this encounter
--- OUTSIDE RECORDS SUMMARY | 2022-07-05 09:30 | XMS_ITS | Encounter Summary ---
:1955 Author Organization [facility] Address [address] [place] [address] Care Team Providers Name Role Phone Unavailable Primary Care Provider Unavailable Reason for Visit Reason Comments Pre-visit Testing Orders Encounter Details Date Type Department Care Team Description 01/02/2022 Clinical Communication Division of Rob Mata Pre -visit Testing Allergic Diseases Dominic, Willam.B.B.S., Orders in [place], Ph.D. [address] [place] [phone] Social History Tobacco Use Types Packs/Day Years [...]
--- OUTSIDE RECORDS SUMMARY | 2022-07-05 09:30 | XMS_ITS | Encounter Summary ---
:1955 Author Organization [facility] Address [address] [place] [address] Care Team Providers Name Role Phone Unavailable Primary Care Provider Unavailable Reason for Referral Outpatient (Routine) - Closed Specialty Diagnoses / Procedures Referred By Contact Refer red To Contact Diagnoses Asthma Chronic (HCC) Rob Mata, [facility] Procedures ALI Exhaled Nitric Oxide Travis, Ph.D. [address] [place], [place] [phone] Referral ID Status Reason Start Date Expiration Date Visits Requ ested Visits Authorized [id number] Closed 02/06/2021 02/06/2022 1 1 Reason for Visit Appointment Request (Routine) - Closed Specialty Diagnoses / Procedures Referred By Contact Refer red To Contact Allergy and Immunology Diagnoses Asthma (HCC) Referral ID Status Reason Start Date Expiration Date Visits Requ ested Visits Authorized [id number] Closed 11/21/2020 11/21/2021 1 1 Encounter Details Date Type Department Care Team Description 02/06/2021 Office Visit Division of Allergic Rob Mata, [facility] Chronic (HCC) Diseases in [place], Travis, Ph.D. (Primary Dx) [address] [place] [phone] Social History Tobacco Use Types Packs/Day Years [...] More than 4 times per year 02/04/2022 faith services? Do you belong to any clubs [...]
--- OUTSIDE RECORDS SUMMARY | 2022-07-05 09:30 | XMS_ITS | Encounter Summary ---
:1955 Author Organization [facility] Address [address] [place] [address] Care Team Providers Name Role Phone Unavailable Primary Care Provider Unavailable Reason for Visit Reason Comments COVID Nurse Line Encounter Details Date Type Department Care Team Description 02/11/2020 Clinical Communication Division of Allergic Divekar, R ohit COVID Nurse Line Diseases in D, Britney.B.S., [place], [place] Ph.D. [address] [facility] [address] [place] [phone] [phone] Social History Tobacco Use Types Packs/Day Years [...] or relatives? How often do you attend orthodox or More than 4 times per year 02/04/2022 episcopalian services? Do you belong to any clubs or Yes 02/04/2022 organizations such as orthodox groups, unions, fraternal or athletic groups, or [...] - 02/11/2020 12:41 PM CDT ([facility] and [facility] locations only: If the patient is not having symptoms and is requesting COVID-19 Nasal Swab testing only, use the process listed in the COVID-19 Patient Requesting COVID PCR Test OTG COVID-19 [place] Patient Requesting COVID PCR Test). 1. Do [...] to: romulo yañez desk Scheduling Contact Number: [phone] documented in this encounter Plan of Treatment Not on filedocumented as of this encounter Visit Diagnoses Not on filedocumented in this encounter
--- OUTSIDE RECORDS SUMMARY | 2022-07-05 09:30 | XMS_ITS | Encounter Summary ---
:1955 Author Organization [facility] Address [address] [place] [address] Care Team Providers Name Role Phone Unavailable Primary Care Provider Unavailable Reason for Visit Reason Comments COVID Nurse Line Encounter Details Date Type Department Care Team Description 01/31/2020 Clinical Communication Division of Allergic Divekar, R ohit COVID Nurse Line Diseases in D, Britney.B.S., [place], [place] Ph.D. [address] [facility] [address] [place] [phone] [phone] Social History Tobacco Use Types Packs/Day Years [...] - 01/31/2020 1:56 PM CDT ([facility] and [facility] locations only: If the patient is not having symptoms and is requesting COVID-19 Nasal Swab testing only, use the process listed in the COVID-19 Patient Requesting COVID PCR Test OTG COVID-19 [place] Patient Requesting COVID PCR Test). In the past 30 days have you had a swab for COVID that tested positive? no Route reply to: MADDIE VYAS SCHEDULING Scheduling Contact Number: [phone] documented in this encounter Plan of Treatment Not on filedocumented as of this encounter Visit Diagnoses Not on filedocumented in this encounter
--- OUTSIDE RECORDS SUMMARY | 2022-07-05 09:31 | XMS_ITS | Encounter Summary ---
:1955 Author Organization [facility] Address [address] [place] [address] Care Team Providers Name Role Phone Unavailable Primary Care Provider Unavailable Encounter Details Date Type Department Care Team Description 01/07/2019 Clinical Communication Division of Allergic Kloos Zander wren, Diseases in Carri E, R.N. [place], [place] [address] [facility] [address] [place] [phone] [phone] Social History Tobacco Use Types Packs/Day Years [...] or relatives? How often do you attend congregation or More than 4 times per year 02/04/2022 jainism services? Do you belong to any clubs or Yes 02/04/2022 organizations such as congregation groups, unions, fraternal or athletic groups, or [...] or slept in a penitentiary (including now)? Sex Assigned at Date Recorded Female 02/04/2022 1:44 PM CDT documented as of this encounter Plan of Treatment Not on filedocumented as of this encounter Visit Diagnoses Not on filedocumented in this encounter
--- OUTSIDE RECORDS SUMMARY | 2022-07-05 09:31 | XMS_ITS | Encounter Summary ---
:1955 Author Organization [facility] Address [address] [place] [address] Care Team Providers Name Role Phone Unavailable Primary Care Provider Unavailable Reason for Visit Reason Comments Allergy Testing FVC/BD Encounter Details Date Type Department Care Team Description 03/09/2019 Clinical Support Division of Allergic Divekar, R Britney Turner.B.S., Ph.D. [address] [place] [phone] Asthma Intrinsic (HCC); Diseases in Adilene Hull R.N. [address] [place] [phone] [place], [place] [address] [place] [phone] Social History Tobacco Use Types Packs/Day Years [...] or relatives? How often do you attend adventist or More than 4 times per year 02/04/2022 methodist services? Do you belong to any clubs or Yes 02/04/2022 organizations such as adventist groups, unions, fraternal or athletic groups, or [...] Procedure Name Priority Date/Time Associated Comments Diagnosis [place] BRONCHODILATION Routine 03/09/2019 8:24 Wheezing Result s for this RESPONSIVENESS AM CDT procedure are in the results section. documented in this encounter Results Spirometry (03/09/2019 8:24 AM CDT) P athologist Signature VC MAX POST 2.80 L 03/24/2019 [facility] 9:43 AM CDT SUITE PostFVC 2.73 L 03/24/2019 [facility] 9:43 AM CDT SUITE PostFEV1 2.09 L 03/24/2019 [facility] 9:43 AM CDT SUITE FEV1/FVC POST 76.62 % 03/24/2019 [facility] 9:43 AM CDT SUITE FEF 25-75 % 1.71 L/s 03/24/2019 [facility] POST 9:43 AM CDT [address] PEF [...] 03/24/2019 [facility] 9:43 AM CDT SUITE YYW45-20% 1.72 L/s 03/24/2019 [facility] 9:43 AM CDT SUITE PEF PRE 7.09 L/s 03/24/2019 [facility] 9:43 AM CDT SUITE FET PRE 11.41 sec 03/24/2019 [facility] 9:43 AM CDT SUITE SUBSTANCE POST NaN 03/24/2019 [facility] 9:43 AM CDT SUITE DOSE POST NaN 03/24/2019 [facility] 9:43 AM CDT SUITE % PRED VC MAX 86.34 % 03/24/2019 [facility] 9:43 AM CDT SUITE FVC% 85.87 % 03/24/2019 [facility] 9:43 AM CDT SUITE FEV1% 84.77 % 03/24/2019 [facility] 9:43 AM CDT SUITE % PRED 98.13 % 03/24/2019 [facility] FEV1/FVC 9:43 AM CDT SUITE % PRED FEF 79.59 % 03/24/2019 [facility] 25-75% 9:43 AM CDT SUITE % PRED PEF 127.06 % 03/24/2019 [facility] 9:43 AM CDT SUITE PRED VC MAX 3.01 L 03/24/2019 [facility] 9:43 AM CDT SUITE PRED FVC [...] Organization Address City/State/ZIP Code Phon e Number [facility] [address] [facility] [address] documented in this encounter Visit Diagnoses Diagnosis Asthma Intrinsic (HCC) Wheezing documented in this encounter
--- OUTSIDE RECORDS SUMMARY | 2022-07-05 09:31 | XMS_ITS | Encounter Summary ---
:1955 Author Organization [facility] Address [address] [place] [address] Care Team Providers Name Role Phone Unavailable Primary Care Provider Unavailable Encounter Details Date Type Department Care Team Description 03/09/2019 Education Division of Allergic DivekarRadha M.B.B.S., Ph.D. [address] [place] [phone] Asthma Mild Persistent Diseases in [place], [place] [facility] [address] [place] [phone] ([facility]) [place] [address] [place] [phone] Social History Tobacco Use Types Packs/Day Years [...] or relatives? How often do you attend buddhism or More than 4 times per year 02/04/2022 sabianism services? Do you belong to any clubs or Yes 02/04/2022 organizations such as buddhism groups, unions, fraternal or athletic groups, or [...]
--- OUTSIDE RECORDS SUMMARY | 2022-07-05 09:31 | XMS_ITS | Encounter Summary ---
:1955 Author Organization [facility] Address [address] [place] [address] Care Team Providers Name Role Phone Unavailable Primary Care Provider Unavailable Encounter Details Date Type Department Care Team Description 12/18/2018 Clinical Communication Division of Allergic Bri Mata, Diseases in [place], EnriqueBSandraS., Ph.D. [place] [address] [facility] [address] [place] [phone] Social History Tobacco Use Types Packs/Day Years [...] More than 4 times per year 02/04/2022 mandaeism services? Do you belong to any clubs [...] [place] [facility] (including now)? Sex Assigned at Date Recorded [...]
--- OUTSIDE RECORDS SUMMARY | 2022-07-05 09:31 | XMS_ITS | Encounter Summary ---
:1955 Author Organization [facility] Address [address] [place] [address] Care Team Providers Name Role Phone Unavailable Primary Care Provider Unavailable Reason for Visit Reason Comments Pre-visit Testing Orders Encounter Details Date Type Department Care Team Description 12/14/2018 Clinical Communication Division of Rob Mata Pre -visit Testing Allergic Diseases Britney Alfaro.B.S., Orders in [place], Ph.D. [place] [address] [address] [facility] [address] [place] [phone] [phone] Social History Tobacco Use Types Packs/Day Years [...] or relatives? How often do you attend anabaptism or More than 4 times per year 02/04/2022 congregation services? Do you belong to any clubs or Yes 02/04/2022 organizations such as anabaptism groups, unions, fraternal or athletic groups, or [...] 12/14/2018 Rhinitis Allergic (Approxima te), Expires: 2021 [facility] Skin Test Procedures Routine Asthma (HCC) Expected: 12/14/2018 Rhinitis Allergic (Approxima te), Expires: 2021 documented as of this encounter Visit Diagnoses Diagnosis Asthma (HCC) - Primary Rhinitis Allergic documented in this encounter
--- OUTSIDE RECORDS SUMMARY | 2022-07-05 09:31 | XMS_ITS | Encounter Summary ---
:1955 Author Organization [facility] Address [address] [place] [address] Care Team Providers Name Role Phone Unavailable Primary Care Provider Unavailable Reason for Visit Appointment Request (Routine) - Closed Specialty Diagnoses / Procedures Referred By Contact Refer red To Contact Allergy and Immunology Referral ID Status Reason Start Date Expiration Date Visits Requ ested Visits Authorized [id number] Closed 12/14/2018 12/14/2019 1 Encounter Details Date Type Department Care Team Description 01/07/2019 Clinical Communication Division of Allergic Diseases in [facility] bart [address] [place] [phone] Social History Tobacco Use Types Packs/Day [...] or slept in a assisted (including now)? Sex Assigned at Date Recorded Female 02/04/2022 1:44 PM CDT documented as of this encounter Plan of Treatment Not on filedocumented as of this encounter Visit Diagnoses Not on filedocumented in this encounter
--- OUTSIDE RECORDS SUMMARY | 2022-07-05 09:31 | XMS_ITS | Encounter Summary ---
:1955 Author Organization [facility] Address [address] [place] [address] Care Team Providers Name Role Phone Unavailable Primary Care Provider Unavailable Encounter Details Date Type Department Care Team Description 07/29/2008 Hospital Encounter HX [facility] Provider, Id jayden Social History Tobacco Use Types Packs/Day [...] or relatives? How often do you attend episcopal or More than 4 times per year 02/04/2022 zoroastrian services? Do you belong to any clubs or Yes 02/04/2022 organizations such as episcopal groups, unions, fraternal or athletic groups, or [...] slept in a senior living (including now)? Sex Assigned at Date Recorded Female 02/04/2022 1:44 PM CDT documented as of this encounter Plan of Treatment Not on filedocumented as of this encounter Visit Diagnoses Not on filedocumented in this encounter
--- OUTSIDE RECORDS SUMMARY | 2022-07-05 09:31 | XMS_ITS | Encounter Summary ---
:1955 Author Organization [facility] Address [address] [place] [address] Care Team Providers Name Role Phone Unavailable Primary Care Provider Unavailable Reason for Visit Reason Onset Date Comments Triage Approved 12/08/2018 Asthma (HCC) [J45.9 09];Allergy Initial [T78.40XA] Encounter Details Date Type Department Care Team Description 12/08/2018 Clinical Communication Division of Rob Ordoñez age Approved ( Allergic Diseases D, M.B.B.S., Asthma (HC C) in [place], Ph.D. [J45.909];Allergy [place] [address] [facility] Initial [T78.40XA]) [address] [place] [phone] [phone] Social History Tobacco Use Types Packs/Day Years [...] or relatives? How often do you attend uatsdin or More than 4 times per year 02/04/2022 religion services? Do you belong to any clubs or Yes 02/04/2022 organizations such as uatsdin groups, unions, fraternal or athletic groups, or [...] or slept in a long-term (including now)? Sex Assigned at Date Recorded [...] 3 allergy concerns 3. Previous evaluation by heel coverer 4. Previous Hospitalizations 5. Previous workup 6. Medications ?? ASSESSMENT / PLAN ?? Purpose/Goals for visit: Patient has recently moved back to [place] and would like to establish care for her asthma and allergies. She has been doing well over the last year and has not had any significant flares. She has not had pulmonary function testing in a number of years. Top allergy concern: 1. Evaluation and management of her asthma and allergies Other multisystem concerns including non-allergy concerns: No Previous evaluation by heel coverer Has the patient been evaluated by an heel coverer? No Previous Hospitalizations: No hospitalizations or ED [...] Signature VC MAX POST 2.80 L 03/24/2019 [facility] 9:43 AM CDT SUITE PostFVC 2.73 L 03/24/2019 [facility] 9:43 AM CDT SUITE PostFEV1 2.09 L 03/24/2019 [facility] 9:43 AM CDT SUITE FEV1/FVC POST 76.62 % 03/24/2019 [facility] 9:43 AM CDT SUITE FEF 25-75 % 1.71 L/s 03/24/2019 [facility] 9:43 AM CDT SUITE PEF POST 6.98 L/s 03/24/2019 [facility] 9:43 AM CDT SUITE FET POST 11.95 sec 03/24/2019 [facility] 9:43 AM CDT SUITE VC MAX PRE 2.60 L 03/24/2019 [facility] 9:43 AM CDT SUITE FVC 2.59 L 03/24/2019 [facility] E[facility] 9:43 AM CDT SUITE FEV1 2.02 L 03/24/2019 [facility] 9:43 AM CDT SUITE FEV1/FVC 77.83 % 03/24/2019 [facility] 9:43 AM CDT SUITE DDD84-59% 1.72 L/s 03/24/2019 [facility] 9:43 AM CDT SUITE PEF PRE 7.09 L/s 03/24/2019 [facility] 9:43 AM CDT SUITE FET PRE 11.41 sec 03/24/2019 [facility] E[facility] 9:43 AM CDT SUITE SUBSTANCE POST NaN 03/24/2019 [facility] E[facility] 9:43 AM CDT SUITE DOSE POST NaN 03/24/2019 [facility] ENN[facility] 9:43 AM CDT SUITE % PRED VC MAX 86.34 % 03/24/2019 [facility] 9:43 AM CDT SUITE FVC% 85.87 % 03/24/2019 [facility] 9:43 AM CDT SUITE FEV1% 84.77 % 03/24/2019 [facility] 9:43 AM CDT SUITE % PRED 98.13 % 03/24/2019 [facility] FEV1/FVC 9:43 AM CDT SUITE % PRED FEF 79.59 % 03/24/2019 [facility] 25-75% 9:43 AM CDT SUITE % PRED PEF 127.06 % 03/24/2019 [facility] 9:43 AM CDT SUITE PRED VC MAX 3.01 L 03/24/2019 [facility] 9:43 AM CDT SUITE PRED FVC 3.02 L 03/24/2019 [facility] 9:43 AM CDT SUITE PRED FEV 1 2.38 L 03/24/2019 [facility] 9:43 AM CDT SUITE PRED FEV1/FVC 79.31 % 03/24/2019 [facility] 9:43 AM CDT SUITE PRED FEF 2.17 L/s 03/24/2019 [facility] 25-75% 9:43 AM CDT SUITE PRED PEF 5.58 L/s 03/24/2019 [facility] 9:43 AM CDT SUITE Specimen (Source) Anatomical Collection Method Collection Time Re ceived Time Location / / Volume Laterality 03/09/2019 8:24 AM CDT Narrative This result has an attachment that is no t available. Rob Robles, Ph.D. PFT ORDERABLES Performing Organization Address City/State/ZIP Code Phon e Number [facility] [address] documented in this encounter Visit Diagnoses Diagnosis Wheezing - Primary documented in this encounter
--- OUTSIDE RECORDS SUMMARY | 2022-07-05 09:31 | XMS_ITS | Encounter Summary ---
:1955 Author Organization [facility] Address [address] [place] [address] Care Team Providers Name Role Phone Unavailable Primary Care Provider Unavailable Reason for Referral Outpatient (Routine) - Closed Specialty Diagnoses / Procedures Referred By Contact Refer kaiden To Contact Allergy and Immunology Diagnoses Asthma Mild Persistent (HCC) [facility] MN[place]ole[place]andra, Ph.D. [address] [place] [address] Referral ID Status Reason Start Date Expiration Date Visits Requ ested Visits Authorized [id number] Closed 03/09/2019 03/08/2020 1 1 Specialty Diagnoses / Procedures Referred By Contact Refer red To Contact Rob Mata M.B.B.S., [facility] Ph.D. [address] [place] [phone] Referral ID Status Reason Start Date Expiration Date Visits Requ ested Visits Authorized Reason for Visit Reason Comments Asthma Appointment Request (Routine) - Closed Specialty Diagnoses / Procedures Referred By Contact Refer red To Contact Allergy and Immunology Referral ID Status Reason Start Date Expiration Date Visits Requ ested Visits Authorized [id number] Closed 11/26/2018 11/26/2019 1 Encounter Details Date Type Department Care Team Description 03/09/2019 Comprehensive Visit Division of Allergic Jeff Mata Asthma Mild Diseases in D, M.B.B.S., Persistent (HCC ) [place], [place] Ph.D. (Primary Dx) [address] [place] [address] [phone] Social History Tobacco Use Types Packs/Day Years [...] or relatives? How often do you attend adventism or More than 4 times per year 02/04/2022 confucianist services? Do you belong to any clubs or Yes 02/04/2022 organizations such as adventism groups, unions, fraternal or athletic groups, or [...] has been referred by Natalie Grace M.D. [facility], [address] [place] [address] HPI: complains of asthma. The patient has [...] Has episodes of losing voice back in [place], may be correlated with allergy season. Concern [...] ago was dust, trees, mold. lives in [facility] [phone]. There are no pets in the house. [...]
--- OUTSIDE RECORDS SUMMARY | 2022-07-05 09:31 | XMS_ITS | Encounter Summary ---
:1955 Author Organization [facility] Address [address] [place] [address] Care Team Providers Name Role Phone Unavailable Primary Care Provider Unavailable Encounter Details Date Type Department Care Team Description 03/09/2019 Orders Only Division of Allergic Sin Arevalo, R.N. Diseases in [place], [address] [place], [place] [address] [facility] [address] [place] [address] [phone] Social History Tobacco Use Types Packs/Day Years [...] or relatives? How often do you attend spiritism or More than 4 times per year 02/04/2022 mormon services? Do you belong to any clubs or Yes 02/04/2022 organizations such as spiritism groups, unions, fraternal or athletic groups, or [...]
--- OUTSIDE RECORDS SUMMARY | 2022-07-05 09:31 | XMS_ITS | Encounter Summary ---
:1955 Author Organization [facility] Address [address] [place] [address] Care Team Providers Name Role Phone Unavailable Primary Care Provider Unavailable Encounter Details Date Type Department Care Team Description 03/09/2019 Clinical Communication Division of Allergic Bri Mata, Diseases in [place], MWenBSandraS., Ph.D. [place] [address] [address] [facility] [address] [place] [address] [phone] Social History Tobacco Use Types Packs/Day Years [...] or relatives? How often do you attend methodist or More than 4 times per year 02/04/2022 buddhist services? Do you belong to any clubs or Yes 02/04/2022 organizations such as methodist groups, unions, fraternal or athletic groups, or [...] No action needed Scheduling: Follow-up visit ordered. [place]: Please set-up a telephone call with designated provider. or Other: nothing needed Disposition: Follow-up needed. See scheduling section. will see patient back in 6 months 09/16 documented in this encounter Plan of Treatment Not on filedocumented as of this encounter Visit Diagnoses Not on filedocumented in this encounter
--- OUTSIDE RECORDS SUMMARY | 2022-07-05 09:31 | XMS_ITS | Encounter Summary ---
:1955 Author Organization [facility] Address [address] [place] [address] Care Team Providers Name Role Phone Unavailable Primary Care Provider Unavailable Reason for Visit Reason Comments Allergy Testing Patient decline allergy skin testing Encounter Details Date Type Department Care Team Description 03/09/2019 Clinical Support Division of Allergic Fernandaekar, Britney Roberts.B.S., Ph.D. [address] [place] [phone] Asthma ([facility]); Diseases in [place], Adilene Hull, RSandraN. [address] [place], [place] [phone] Rhinitis Allergic [place] [address] [place] [phone] Social History Tobacco Use Types Packs/Day Years [...] or relatives? How often do you attend islam or More than 4 times per year 02/04/2022 jain services? Do you belong to any clubs or Yes 02/04/2022 organizations such as islam groups, unions, fraternal or athletic groups, or [...] place to sleep or slept in a fdc (including now)? Education Answer Date Recorded What [...]
--- OUTSIDE RECORDS SUMMARY | 2022-07-05 09:31 | XMS_ITS | Encounter Summary ---
:1955 Author Organization [facility] Address [address] [place] [address] Care Team Providers Name Role Phone Unavailable Primary Care Provider Unavailable Encounter Details Date Type Department Care Team Description 03/09/2019 Orders Only Division of Allergic David Santana nne M Diseases in [place], [address] [place], [place] [address] [facility] [address] [place] [address] [phone] Social History Tobacco Use Types Packs/Day Years [...] or relatives? How often do you attend judaism or More than 4 times per year 02/04/2022 jainism services? Do you belong to any clubs or Yes 02/04/2022 organizations such as judaism groups, unions, fraternal or athletic groups, or [...]
== END 2022-07-05 09:07 | disposition home or self-care (01) ==
PROVIDERS: PCP Obstetrics & Gynecology; Visit Provider Obstetrics & Gynecology
DX: Z12.31 Encounter for screening mammogram for malignant neoplasm of breast (principal)
CPT/HCPCS: 77063; 77067

== ENCOUNTER 2022-08-16 15:51 | Outpatient (CLI) | payer BC, SELFPAY ==
[2022-08-16 12:13] LABS: Albumin* 4.3 g/dL (3.3-5.0); Chloride* 105 mmol/L (96-114); Potassium* 4.3 mmol/L (3.6-5.1); Sodium* 141 mmol/L (135-149)
[2022-08-16 12:15] LABS: Carbon Dioxide* 26 mmol/L (20-32); Cholesterol* 272 mg/dL (90-199); Creatinine* 0.8 mg/dL (0.5-1.5); Estimated Glomerular Filt Rate 82 ml/min
[2022-08-16 12:16] LABS: Alanine Aminotransferase* 21 U/L (4-35); Alkaline Phosphatase* 95 U/L (40-150); Aspartate Amino Transferase* 25 U/L (12-35); Bilirubin Total* 1.1 mg/dL (0.1-1.5); Blood Urea Nitrogen* 14 mg/dL (7-30); Calcium* 9.5 mg/dL (8.4-10.6); Glucose* 96 mg/dL (60-115); Magnesium* 2.1 mg/dL (1.5-2.6); Total Protein* 7.6 g/dL (6.0-8.3); Triglycerides* 172 mg/dL (40-149)
[2022-08-16 12:34] LABS: Microalbumin Creatinine Ratio 0 mg/g (0-30); Microalbumin Urine < 1 mg/dL
[2022-08-16 12:38] LABS: Vitamin D 25 Hydroxy* 17 ng/mL (30-80)
[2022-08-16 13:10] LABS: Vitamin B12* 339 pg/mL (243-894)
[2022-08-16 14:49] LABS: HDL Cholesterol* 72 mg/dL (>=50); LDL Cholesterol Calculated 166 mg/dL (<100)
== END 2022-08-16 15:52 | disposition home or self-care (01) ==
PROVIDERS: PCP Obstetrics & Gynecology; Visit Provider Family Medicine
DX: E78.2 Mixed hyperlipidemia (principal); G43.009 Migraine without aura, not intractable, without status migrainosus; J45.40 Moderate persistent asthma, uncomplicated; M85.80 Other specified disorders of bone density and structure, unspecified site; I10 Essential (primary) hypertension
CPT/HCPCS: 80053; 80061; 82043; 82306; 82570; 82607; 83735

== ENCOUNTER 2022-11-27 13:18 | Outpatient (CLI) | payer MEDICARE, BC, SELFPAY ==
--- NOTE | 2022-11-27 13:30 | CRLHL7_ITS ---
For Patients: As a result of the Century Cures Act, medical imaging exams and procedure reports are released immediately into your electronic medical record. You may view this report before your referring provider. If you have questions, please contact your health care provider. DXA BONE MINERAL DENSITY STUDY Reason for exam: Osteopenia. Current height (in): 62. Weight (lb): 140. Menopause age: 54. Ethnicity: White. 1. Have you had a previous hip or vertebral fracture? No. 2. Have you had any fractures during your adult life which did not result from significant trauma (e.g., auto accident)? No. 3. Did either of your parents have a hip fracture? No. 4. Do you smoke? No. 5. Have you ever taken Glucocorticoids? No. 6. Do you have rheumatoid arthritis? No. 7. Do you have secondary osteoporosis? No. 8. Do you drink 3 or more alcoholic drinks per day? No. 9. Are you being treated for osteoporosis? No. 10. Have you ever taken any of the following medications: Actonel, Evista, Fosamax, Miacalcin, Reclast, Boniva, Forteo, HRT (i.e., estrogen/hormone therapy), Protelos, Prolia, Vitamin D, Calcium, other ??? please specify. ANSWER: Yes, vitamin D, HRT, and calcium. 11. Do you have any of the following medical conditions: Anorexia or bulimia, asthma or emphysema, end stage renal disease, hyperparathyroidism, any seizure disorders, cancer, inflammatory bowel diseases, hysterectomy, other ??? please specify. ANSWER: Yes, asthma or emphysema. 12. What was your maximum height (inches)? 64. 13. Do you perform weight bearing exercise regularly? No. 14. Do you regularly consume dairy products? Yes. 15. Do you drink caffeinated beverages? Yes. If female: 16. At what age did your period start? 16. 17. Are you premenopausal? No. 18. How many full-term pregnancies have you had? 3. 19. Have you ever missed your period for more than 6 months in a row (not including or menopause)? No. TECHNIQUE: Bone mineral density study was performed using the [employer]. FINDINGS: The results of the study expressed as bone mineral density (BMD) are as follows: Lumbar spine L1 to L4: BMD: 0.901 g/cm2. T-score: -1.3. Z-score: 0.4 Neck Left: BMD: 0.558 g/cm2. T-score: -2.6. Z-score: -1.1 Right: BMD: 0.605 g/cm2. T-score: -2.2. Z-score: -0.7 Total Left: BMD: 0.679 g/cm2. T-score: -2.2. Z-score: -0.9 Right: BMD: 0.763 g/cm2. T-score: -1.5. Z-score: -0.2 IMPRESSION: Osteoporosis. Ronnie Esquivel M.D. Diagnostic Radiologist [email or web address] tian/Dictated by: Ronnie Esquivel MD @ 11/28/2022 10:29:00 AM (Electronically Signed)
== END 2022-11-27 13:19 | disposition home or self-care (01) ==
LOC: RAD 13:19
PROVIDERS: PCP Family Medicine; Visit Provider Family Medicine
DX: M85.80 Other specified disorders of bone density and structure, unspecified site (principal); M81.0 Age-related osteoporosis without current pathological fracture
CPT/HCPCS: 77080

== ENCOUNTER 2022-11-29 14:00 | Outpatient (CLI) | payer MEDICARE, BC, SELFPAY | END 2022-11-29 14:01 | disposition home or self-care (01) | LOC: NFLDREF 12-02 17:09 | PROVIDERS: PCP Family Medicine; Referring Provider Family Medicine; Visit Provider Family Medicine | DX: M81.0 Age-related osteoporosis without current pathological fracture (principal) | CPT/HCPCS: 80048; 82306 ==

== ENCOUNTER 2023-05-22 11:01 | Outpatient (CLI) | payer MEDICARE, BC, SELFPAY | END 2023-05-22 11:02 | disposition home or self-care (01) | LOC: NFLDREF 05-26 16:13 | PROVIDERS: PCP Family Medicine; Referring Provider Family Medicine; Visit Provider Family Medicine | DX: M81.0 Age-related osteoporosis without current pathological fracture (principal) | CPT/HCPCS: 82306 ==

== ENCOUNTER 2023-09-02 16:13 | Outpatient (CLI) | payer MEDICARE, BC, SELFPAY ==
--- NOTE | 2023-09-02 16:15 | CRLHL7_ITS ---
For Patients: As a result of the Century Cures Act, medical imaging exams and procedure reports are released immediately into your electronic medical record. You may view this report before your referring provider. If you have questions, please contact your health care provider. BILATERAL SCREENING MAMMOGRAM WITH COMPUTER-AIDED DETECTION AND TOMOSYNTHESIS TECHNIQUE: CC and MLO views were obtained. These mammographic images have been obtained using full-field digital technique. These mammographic images were interpreted with the benefit of computer-aided detection. Breast Tomosynthesis was used in this interpretation. COMPARISON FILM: 07/05/22, 06/13/21, 05/29/20. FINDINGS: There are scattered areas of fibroglandular density IMPRESSION: There is no radiographic evidence for malignancy. ASSESSMENT: BI-RADS Category 1: Negative RECOMMENDATION: Routine screening mammogram in 1 year. A lay language report of this examination will be provided to the patient. Ronnie Esquivel M.D. Diagnostic Radiologist [email or web address] Transcribed: 4:48 p.mSandra tian/Dictated by: Ronnie Esquivel MD @ 09/04/2023 11:09:00 AM (Electronically Signed)
--- OUTSIDE RECORDS SUMMARY | 2023-09-02 16:16 | XMS_ITS | Encounter Summary ---
Author Name Unknown Organization [facility] Address [address] [place] [address] Care Team Providers Care Vat House Supervisor Name Role Phone Elsewhere, Pcp Primary Care Provider Unavailabl e Reason for Referral * Outpatient (Routine) - Closed Specialty Diagnoses / Procedures Referred By Contac t Referred To Contact Diagnoses Asthma Chronic (HCC) Procedures Spirometry Rob Ordoñez M.B.B.S., Ph.D. [address] [place] [phone] [facility] Referral ID Status Reason Start Date Expiration Date Visits Re quested Visits Authorized [id number] Closed 12/06/2022 12/06/2023 1 1 * Outpatient (Routine) - Closed Specialty Diagnoses / Procedures Referred By Contac t Referred To Contact Allergy and Immunology Diagnoses Asthma Chronic (HCC) Rob Ordoñez M.B.B.S., Ph.D. [address] [place] [phone] [facility] Referral ID Status Reason Start Date Expiration Date Visits Re quested Visits Authorized [id number] Closed 12/06/2022 12/05/2025 1 1 Encounter Details Date Type Department Care Team (Late st Contact Info) Description 11/18/2022 Clinical Communication Division of Allergic Diseases in [place], [place] [address] [place] [address] Rob Ordoñez M.B.B.S., Ph.D. [address] [place] [address] Social History Tobacco Use Types Packs/Day Years Used Date Smoking Tobacco: Former Cigarettes 0.3 20 0 08/02/1973 - 07/28/1995 Smokeless Tobacco: Never Alcohol Use Standard Drinks/Week Comments Yes 0 (1 standard drink = 0.6 oz pur e alcohol) Humiliation, Afraid, Rape, and Kick questionnair e Answer Date Recorded Within the last year, have y ou been afraid of your partner or ex-partner? No 02/04/2022 Within the last year, have y ou been humiliated or emotionally abused in other ways by your partner or ex-partner? No Within the last year, have y ou been kicked, hit, slapped, or otherwise physically hurt by your partner or ex-partner? No 02/04/2022 Within the last year, have y ou been raped or forced to have any kind of sexual activity by your partner or ex-partner? No 02/04/2022 Social Connection and Isolat ion Panel [NHANES] Answer Date Recorded In a typical week, how many times do you talk on the phone with family, friends, or neighbors? More than three times a week 02/04/2022 How often do you get togethe r with friends or relatives? Twice a week 02/04/2022 How often do you attend chur or mormon services? More than 4 times per year 02/04/2022 Do you belong to any clubs o r organizations such as tenriism groups, unions, fraternal or athletic groups, or school groups? Yes 02/04/2022 How often do you attend meet ings of the clubs or organizations you belong to? More than 4 times per year 02/04/2022 Are you , , di vorced, , never , or living with a partner? 02/04/2022 AUDIT-C Answer Date Recorded Q1: How often do you have a drink containing alc ohol? Monthly or less 02/04/2022 Q2: How many drinks containi ng alcohol do you have on a typical day when you are drinking? 1 or 2 02/04/2022 Q3: How often do you have si x or more drinks on one occasion? Never 02/04/2022 Overall Financial Resource Strain (CARDIA) Answe r Date Recorded How hard is it for you to pa y for the very basics like food, housing, medical care, and heating? Not hard at all 02/04/2022 [facility] of Occupat ional Health - Occupational Stress Questionnaire Answer Date Recorded Do you feel stress - tense, restless, nervous, or anxious, or unable to sleep at night because your mind is troubled all the time - these days? Only a little 02/04/2022 Exercise Vital Sign Answer Date Recorde d On average, how many days pe r week do you engage in moderate to strenuous exercise (like a brisk walk)? 2 days 02/04/2022 On average, how many minutes do you engage in exercise at this level? 60 min 02/04/2022 Hunger Vital Sign Answer Date Recorded Within the past 12 months, y ou worried that your food would run out before you got the money to buy more. Never true 02/05/20 22 Within the past 12 months, t he food you bought just didn't last and you didn't have money to get more. Never true 02/04/2022 PRAPARE - Transportation Answer Date Re corded In the past 12 months, has l ack of transportation kept you from medical appointments or from getting medications? No 01/25 In the past 12 months, has l ack of transportation kept you from meetings, work, or from getting things needed for daily living? No 02/04/2022 Housing Stability Vital Sign Answer Murali e Recorded In the last 12 months, was t here a time when you were not able to pay the mortgage or rent on time? No 02/04/2022 In the last 12 months, how many places have you lived? 1 02/04/2022 In the last 12 months, was t here a time when you did not have a steady place to sleep or slept in a snf (including now)? No 02/04/2022 Nutrition Answer Date Recorded Nutrition: EVOO Fat Source Yes 02/04 On average, how many serving s of fruits and vegetables do you eat per day (serving size is equal to 1 cup or approximately the size of a tennis ball)? 2-3 02/04/2022 Dental Answer Date Recorded Dental: Regular Dentist Yes 09/26/19 21 Employment Answer Date Recorded Employment status Retired 02/04/2022 Education Answer Date Recorded What is the highest level of school you have completed or the highest degree you have received? Some college, no degree 03/09/2019 Sex and Gender Information Value Date Recorded Sex Assigned at Female 02/04/2022 1:44 PM CDT Gender Identity Female 02/05/2021 1:45 PM CDT Sexual Orientation Straight 02/05/2021 1: 45 PM CDT documented as of this encounter Miscellaneous Notes * Addendum Note - Rob Ordoñez, M.B.B.S., Ph.D. - 12/06/2022 3:04 PM CDT Addended by: ROB ORDOÑEZ on: 12/06/2022 03:04 PM Modules accepted: Orders documented in this encounter Plan of Treatment Scheduled Referrals Name Type Priority Associated Diagnoses Order Schedule Allergy and Immunology office visit (clinic) General Outpatient Referral Routine Asthma Chronic (HCC) Expected: 12/06/2022 (Approximate), Expires: 03/08/2024 documented as of this encounter Results * Spirometry (12/31/2022 10:57 AM CDT) PostFVC 2.43 L 01/02/2023 8:06 AM CDT [facility] PostFEV1 1.92 L 01/02/2023 8:06 AM CDT [facility] FEV1/FVC POST 79.11 % 01/02/2023 8:06 AM CDT [facility] SU[facility] FEF 25-75 % POST 1.68 L/s 01/02/2023 8:06 AM CDT [facility] SU[facility] PEF POST 7.23 L/s 01/02/2023 8:06 AM CDT [facility] SU[facility] PIF POST 5.55 L/s 01/02/2023 8:06 AM CDT [facility] SUITE FEF 50 % FIF 50 POST 37.63 % 01/02/2023 8:06 AM CDT [facility] SUITE FET POST 15.39 sec 01/02/2023 8:06 AM CDT [facility] SUITE FVC 2.29 L 01/02/2023 8:06 AM CDT [facility] SU[facility] FEV1 1.83 L 01/02/2023 8:06 AM CDT [facility] SUITE FEV1/FVC 79.85 % 01/02/2023 8:06 AM CDT [facility] SUITE FAL90-35% 1.43 L/s 01/02/2023 8:06 AM CDT [facility] SU[facility] PEF PRE 7.13 L/s 01/02/2023 8:06 AM CDT [facility] SUITE PIF PRE 5.67 L/s 01/02/2023 8:06 AM CDT [facility] SU[facility] FEF 50 % FIF 50 PRE 34.82 % 01/02/2023 8:06 AM CDT [facility] SUITE FET PRE 15.46 sec 01/02/2023 8:06 AM CDT [facility] SUITE SUBSTANCE POST Albuterol 01/02/2023 8:06 AM CDT [facility] SUITE 12/31/2022 10:5 7 AM CDT Impressions [facility] SUITE - 01/02/2023 8:06 AM CDT within normal limits Narrative Procedure Note Yvon Bradford M.D. - 01/02/2023 IMPRESSION: within normal limits Rob Robles, Ph.D. [facility] [place] Organization Address City/State/ZIP Co de Phone Number [facility] NA documented in this encounter Visit Diagnoses Diagnosis Asthma Acute (HCC)- Primary Asthma Chronic (HCC) Asthma Chronic (HCC) documented in this encounter Care Teams Vat House Supervisor Relationship Specialty Start Date End Date Elsewhere, Pcp PCP - General Internal Medicine 01/31/22 12/29/22 documented as of this encounter
--- OUTSIDE RECORDS SUMMARY | 2023-09-02 16:16 | XMS_ITS | Clinical Summary ---
Author Name Unknown Organization [facility] Address [address] [place] [address] Care Team Providers Care Parts And Service Manager Name Role Phone Elsewhere, Pcp Primary Care Provider Unavailabl e Source Comments Patient records contain information from all sites at [facility]. For routine questions regarding patient records, call [phone] during business hours, M-F 8:00 AM - 5:00 PM Central Time. Record requests for emergency care only can be directed to [phone] at any time.[facility] Allergies Active Allergy Reactions Criticality Noted Date Comments Sulfa (Sulfonamide Antibiotics) Hives (Reselect Reaction) 11/12/2002 Medications Medication Sig Dispensed Refills Start Date End Date Status fexofenadine (WYATT) 180 mg tablet Take 1 tablet by mouth daily. 0 01/15/2013 Active olopatadine (PATANOL) 0.1 % ophthalmic solution 1 drop as needed. 0 01/15/2013 Active SUMAtriptan (IMITREX) 50 mg tablet Take 50 mg by mouth as needed for migraine. May repeat in 2 hours if no relief. Max 2 doses/24 hrs 0 Active albuterol inhalerIndications :Asthma Mild Persistent (HCC) Inhale 1-2 puffs every 4 (four) hours as needed for wheezing or shortness of breath. 1 Inhaler 11 02/14/2020 Active alendronate (FOSAMAX) 70 mg tablet Take 70 mg by mouth once a week. 0 12/09/2022 Active cholecalciferol (VITAMIN D3) 1,250 mcg (50,000 Unit) capsule TAKE 1 CAPSULE BY MOUTH TWICE PER WEEK FOR 12 WEEKS 0 12/09/2022 Active estradioL (ESTRACE) 0.1 mg/g (0.01%) vaginal cream USE 1/2 APPLICATORFUL VAGINALLY DAILY THEN ONE TO 2 TIMES WEEKLY 0 12/11/2022 Active NITROFURANTOIN MONOHYD/M-CRYST ORAL Take 100 mg by mouth 2 (two) times a week. 0 08/14/2022 Active budesonide-formote roL (Symbicort) 160-4.5 mcg/actuation inhalerIndications :Rhinitis Allergic,Asthma Mild Persistent (HCC) Inhale 1 puff daily. Rinse mouth with water after use to reduce aftertaste and incidence of candidiasis. Do not swallow. 30.6 g 3 12/31/2022 Active fluticasone propionate (FLONASE) 50 mcg/actuation nasal sprayIndications:R hinitis Allergic Administer 2 sprays into each nostril daily. 48 g 3 12/31/2022 Active azelastine (ASTELIN) 137 mcg/spray (0.1 %) nasal sprayIndications:R hinitis Allergic ADMINISTER 1-2 SPRAYS INTO EACH NOSTRIL TWICE DAILY. USE IN EACH NOSTRIL DIRECTED 90 mL 3 12/31/2022 Active budesonide-formote roL (SYMBICORT) 160-4.5 mcg/actuation inhalerIndications :Asthma Chronic (HCC) Inhale 1 puff daily. Rinse mouth with water after use to reduce aftertaste and incidence of candidiasis. Do not swallow. 30.6 g 3 06/03/2023 Active Active Problems Problem Noted Date Diagnosed Date Asthma Intrinsic 11/18/2008 Overview: Asthma Non Allergic Intrinsic Immunizations Name Administration Dates Next Due YF, Unspecified 07/29/2008 Family History Medical History Relation Name Comments Asthma Father kina montero Coronary artery disease Father kina montero Rheum arthritis Father kina montero Anesthesia problems Mother jelani cole Colon polyps Mother jelani cole Hyperlipidemia Mother jelani cole Colon cancer Mother's Brother patricia tawana ADD Son daria gonzalez Relation Name Status Comments Father kina montero Mother jelani cole Mother's Brother patricia gilliam Son daria gonzalez Social History Tobacco Use Types Packs/Day Years Used Date Smoking Tobacco: Former Cigarettes 0.3 20 0 08/02/1973 - 07/28/1995 Smokeless Tobacco: Never Tobacco Cessation:Counseling Given: Not Answered Alcohol Use Standard Drinks/Week Comments Yes 0 (1 standard drink = 0.6 oz pur e alcohol) less than that Humiliation, Afraid, Rape, and Kick questionnair e [...] 02/04/2022 How often do you attend chur ch or lutheran services? More than 4 times per year 02/04/2022 Do you belong to any clubs o r organizations such as gnosticist groups, unions, fraternal [...] and heating? Not hard at all 02/04/2022 [facility] of Occupat ional Health - Occupational Stress [...] or slept in a jail (including now)? No 02/04/2022 Nutrition Answer Date Recorded Nutrition: EVOO Fat Source Yes 02/04 On average, how many serving s of fruits and vegetables do you eat per day (serving size is equal to 1 cup or approximately the size of a tennis ball)? 2-3 02/04/2022 Dental Answer Date Recorded Dental: Regular Dentist Yes 09/26/19 Employment Answer Date Recorded Employment status Retired [...] Orientation Straight 02/05/2021 1: 45 PM CDT Last Filed Vital Signs Vital Sign Reading Time Taken Comments Blood Pressure 112/72 03/09/2019 9:45 AM CDT Pulse 81 03/09/2019 9:45 AM CDT Temperature 35.8 ??C (96.4 ??F) 12/31/2022 10:55 AM C DT Respiratory Rate - - Oxygen Saturation - - Inhaled Oxygen Concentration - - Weight 65.1 kg (143 lb 6.6 oz) 12/31/2022 10:55 AM CDT Height 158.3 cm (5' 2.32) 12/31/2022 10:55 AM C DT Body Mass Index 25.96 12/31/2022 10:55 AM CDT Plan of Treatment Health Maintenance Due Date Last Done Comments Bone Density Scan (Osteoporo sis Screen) 1957 CT Colonography 1957 Cervical Cancer Screening 1957 Cologuard 1957 Colonoscopy 1957 Colorectal Cancer Surveillance 1957 Fasting Glucose for Diabetes Screening 1957 HIV Screening 1957 Hepatitis C Screening 1957 Mammogram 1957 Pneumococcal vaccine (65+ ye ars) (1 of 2 - PCV) 10/16/1963 Zoster Vaccines (1 of 2) 10/16/2007 DTaP,Tdap,and Td Vaccines (2 - Td or Tdap) 04/09/2021 04/09/2011, 08/05/2007 Depression Screening (Annual PHQ-2) 07/28/2023 Fall Risk Screen (Annual) 07/28/2023 COVID-19 Vaccine Completed 04/22/2023, 03/2022, 11/06/2021, Additional history exists Influenza Vaccine Completed 04/22/2023, , 05/10/2021, Additional history exists Care Teams Parts And Service Manager Relationship Specialty Start Date End Date Elsewhere, Pcp PCP - General Internal Medicine 12/30/22
--- OUTSIDE RECORDS SUMMARY | 2023-09-02 16:16 | XMS_ITS | Encounter Summary ---
Author Name Unknown Organization [facility] Address [address] [place] [address] Care Team Providers Care School Psychology Professor Name Role Phone Elsewhere, Pcp Primary Care Provider Unavailabl e Reason for Visit * Reason Comments Med Refill Encounter Details Date Type Department Care Team (Late st Contact Info) Description 12/31/2022 Refill Division of Allergic Diseases in [place], [place] [address] [place] [address] Rob Mata M.B.B.S., Ph.D. [address] [place] [address] Med Refill Social History Tobacco Use Types Packs/Day Years [...] How often do you attend chur or scientologist services? More than 4 times per year 02/04/2022 Do you belong to any clubs o r organizations such as mu-ism groups, unions, fraternal or athletic groups, or [...] and heating? Not hard at all 02/04/2022 [facility] of Occupat ional Health - Occupational Stress [...] or slept in a retirement (including now)? No 02/04/2022 Nutrition Answer Date [...] this encounter Plan of Treatment Not on file documented as of this encounter Visit Diagnoses Diagnosis Rhinitis Allergic documented in this encounter Care Teams School Psychology Professor Relationship Specialty Start Date End Date Elsewhere, Pcp PCP - General Internal Medicine 12/30/22 documented as of this encounter
--- OUTSIDE RECORDS SUMMARY | 2023-09-02 16:16 | XMS_ITS | Encounter Summary ---
Author Name Unknown Organization [facility] Address [address] [place] [address] Care Team Providers Care Manager Risk Management Name Role Phone Elsewhere, Pcp Primary Care Provider Unavailabl e Reason for Visit * Reason Comments Patient Education Patient just wanted a new spacer for this visit. She was informed there is a backorder on the hard spacer tubes. She will check with her pharmacy or wait. She does have older one's at home for use. Encounter Details Date Type Department Care Team (Late Contact Info) Description 12/31/2022 2:30 PM CDT Education Division of Allergic Diseases in [place], [place] [address] [place] [phone] Rob Mata, Willam.B.B.S., Ph.D. [address] [place] [phone] Maria Kessler, R.N. [address] [place] [phone] Asthma Mild Persistent (HCC) Social History Tobacco Use Types Packs/Day Years [...] week 02/04/2022 How often do you attend [facility] or lutheran services? More than 4 times per year 02/04/2022 Do you belong to any clubs o r organizations such as advent groups, unions, fraternal or athletic groups, or [...] and heating? Not hard at all 02/04/2022 [facility] of Occupat ional Health - Occupational Stress [...] slept in a nursing home (including now)? No 02/04/2022 Nutrition Answer Date [...] (HCC) documented in this encounter Care Teams Manager Risk Management Relationship Specialty Start Date End Date Elsewhere, Pcp PCP - General Internal Medicine 12/30/22 documented as of this encounter
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
--- OUTSIDE RECORDS SUMMARY | 2023-09-02 16:16 | XMS_ITS ---
Author Name Unknown Organization [facility] Address [address] [place] [address] Care Team Providers Care Java User Interface Developer Name Role Phone Unavailable Unavailable Unavailable Surgery Details Not on file Complications Check Surgery Details section. Procedure Estimated Blood Loss Check Surgery Details section. Procedure Findings Check Surgery Details section. Procedure Specimens Taken Check Surgery Details section.
--- OUTSIDE RECORDS SUMMARY | 2023-09-02 16:16 | XMS_ITS | Encounter Summary ---
Author Name Unknown Organization [facility] Address [address] [place] [address] Care Team Providers Care Street Light Cleaner Name Role Phone Elsewhere, Pcp Primary Care Provider Unavailabl e Reason for Visit * Reason Onset Date Comments Denied coverage for Symbicort 01/01/2023 Encounter Details Date Type Department Care Team (Latest Contact Info) Description 01/01/2023 Clinical Communication Division of Allergic Diseases in [place], [place] [address] [place] [phone] Rob Mata M.B.B.S., Ph.D. [address] [place] [phone] Denied coverage for Symbicort Social History Tobacco Use Types Packs/Day Years [...] How often do you attend chur or lutheran services? More than 4 times per year 02/04/2022 Do you belong to any clubs o r organizations such as synagogue groups, unions, fraternal or athletic groups, or [...] and heating? Not hard at all 02/04/2022 [facility] of Occupat ional Health - Occupational Stress [...] or slept in a prison (including now)? No 02/04/2022 Nutrition Answer Date [...] as of this encounter Miscellaneous Notes * Telephone Encounter - Maryse Bray - 01/02/2023 5:59 AM CDT Tier exception denial. There are no lower tiers for this medication. No action needed * Telephone Encounter - Ermelinda Salcido - 01/01/2023 4:11 PM CDT Fax from ethology regarding denied coverage for Ning Gonzalez's Symbicort 160-4.5 mcg/ACT aerosol. This has been scanned into Document Viewer. Thanks documented in this encounter Plan of Treatment Not on file documented as of this encounter Visit Diagnoses Not on filedocumented in this encounter Care Teams Street Light Cleaner Relationship Specialty Start Date End Date Elsewhere, Pcp PCP - General Internal Medicine 12/30/22 documented as of this encounter
--- OUTSIDE RECORDS SUMMARY | 2023-09-02 16:16 | XMS_ITS | Encounter Summary ---
Author Name Unknown Organization [facility] Address [address] [place] [address] Care Team Providers Care Supervisor Nuclear Medicine Name Role Phone Elsewhere, Pcp Primary Care Provider Unavailabl e Reason for Visit * Reason Onset Date Comments Pre-visit Intake 12/30/2022 Encounter Details Date Type Department Care Team (Latest Contact Info) Description 12/30/2022 1:30 PM CDT Clinical Communication Virtual Review in [place], [place] [address] [place], [place] [phone] Pre-visit Intake Social History Tobacco Use Types Packs/Day Years [...] How often do you attend chur or restorationism services? More than 4 times per year 02/04/2022 Do you belong to any clubs o r organizations such as zoroastrian groups, unions, fraternal or athletic groups, or [...] and heating? Not hard at all 02/04/2022 [facility] - Occupational Stress Questionnaire Answer [...] or slept in a long-term (including now)? No 02/04/2022 Nutrition Answer Date [...] on filedocumented in this encounter Care Teams Supervisor Nuclear Medicine Relationship Specialty Start Date End Date Elsewhere, Pcp PCP - General Internal Medicine 12/30/22 documented as of this encounter
--- OUTSIDE RECORDS SUMMARY | 2023-09-02 16:16 | XMS_ITS | Referral Summary ---
Author Name Unknown Organization [facility] Address [address] [place] [address] Care Team Providers Care Mortgage Closing Clerk Name Role Phone Elsewhere, Pcp Primary Care Provider Unavailabl e Source Comments Patient records contain information from all sites at [facility]. For routine questions regarding patient records, call [phone] during business hours, M-F 8:00 AM - 5:00 PM Central Time. Record requests for emergency care only can be directed to [phone] at any time.[facility] Allergies Active Allergy Reactions Criticality [...] Administration Dates Next Due YF, Unspecified 07/29/2008 Social History Tobacco Use Types Packs/Day Years [...] week 02/04/2022 How often do you attend [facility] or rastafarian services? More than 4 times per year 02/04/2022 Do you belong to any clubs o r organizations such as roman catholic groups, unions, fraternal or athletic groups, [...] and heating? Not hard at all 02/04/2022 [facility] of Occupat ional Health - Occupational Stress [...] 12/31/2022 10:55 AM CDT Plan of Treatment Not on file Care Teams Mortgage Closing Clerk Relationship Specialty Start Date End Date Elsewhere, Pcp PCP - General Internal Medicine 12/30/22
--- OUTSIDE RECORDS SUMMARY | 2023-09-02 16:16 | XMS_ITS | Encounter Summary ---
Author Name Unknown Organization [facility] Address [address] [place] [phone] Care Team Providers Care Luggage Maker Name Role Phone Elsewhere, Pcp Primary Care Provider Unavailabl e Reason for Visit * Reason Comments Allergy Testing Spirometry * Outpatient (Routine) - Closed Specialty Diagnoses / Procedures Referred By Contac t Referred To Contact Diagnoses Asthma Chronic (HCC) Procedures Spirometry Rob Mata, M.B.B.S., Ph.D. [address] [place] [phone] [facility] Referral ID Status Reason Start Date Expiration Date Visits Re quested Visits Authorized [id number] Closed 12/06/2022 12/06/2023 1 1 Encounter Details Date Type Department Care Team (Latest Contact Info) Description 12/31/2022 11:00 AM CDT Clinical Support Division of Allergic Diseases in [place], [place] [address] [place] [phone] Rob Mata, M.B.B.S., Ph.D. [address] [place] [phone] Pari Mc R.N. [address] [place] [phone] Asthma Chronic (HCC) Social History Tobacco Use Types Packs/Day [...] week 02/04/2022 How often do you attend [facility] or religion services? More than 4 times per year 02/04/2022 Do you belong to any clubs o r organizations such as anglican groups, unions, fraternal or athletic groups, or [...] and heating? Not hard at all 02/04/2022 [facility] of Occupat ional Health - Occupational Stress [...] or slept in a correction (including now)? No 02/04/2022 Nutrition Answer Date [...] Pressure - - Pulse - - Temperature 35.8 ??C (96.4 ??F) 12/31/2022 10:55 AM C DT Respiratory Rate - - Oxygen Saturation - - Inhaled Oxygen Concentration - - Weight 65.1 kg (143 lb 6.6 oz) 12/31/2022 10:55 AM CDT Height 158.3 cm (5' 2.32) 12/31/2022 10:55 AM C DT Body Mass Index 25.96 12/31/2022 10:55 AM CDT documented in this encounter Plan of Treatment Not on file documented as of this encounter Procedures Procedure Name Priority Date/Time Associated Diagnosis Comments OR BRONCHODILATION RESPONSIVENESS Routine 12/31/2022 10:57 AM CDT Asthma Chronic (HCC) documented in this encounter Results * Spirometry (12/31/2022 10:57 AM CDT) PostFVC 2.43 L 01/02/2023 8:06 AM CDT [facility] PostFEV1 1.92 L 01/02/2023 8:06 AM CDT [facility] FEV1/FVC POST 79.11 % 01/02/2023 8:06 AM CDT [facility] FEF 25-75 % POST 1.68 L/s 01/02/2023 8:06 AM CDT [facility] PEF POST 7.23 L/s 01/02/2023 8:06 AM CDT [facility] PIF POST 5.55 L/s 01/02/2023 8:06 AM CDT [facility] FEF 50 % FIF 50 POST 37.63 % 01/02/2023 8:06 AM CDT [facility] FET POST 15.39 sec 01/02/2023 8:06 AM CDT [facility] FVC 2.29 L 01/02/2023 8:06 AM CDT [facility] FEV1 1.83 L 01/02/2023 8:06 AM CDT [facility] FEV1/FVC 79.85 % 01/02/2023 8:06 AM CDT [facility] APP69-88% 1.43 L/s 01/02/2023 8:06 AM CDT [facility] PEF PRE 7.13 L/s 01/02/2023 8:06 AM CDT [facility] PIF PRE 5.67 L/s 01/02/2023 8:06 AM CDT [facility] FEF 50 % FIF 50 PRE 34.82 % 01/02/2023 8:06 AM CDT [facility] FET PRE 15.46 sec 01/02/2023 8:06 AM CDT [facility] SUBSTANCE POST Albuterol 01/02/2023 8:06 AM CDT [facility] 12/31/2022 10:5 7 AM CDT Impressions [facility] - 01/02/2023 8:06 AM CDT within normal limits Narrative Procedure Note Yvon Bradford M.D. - 01/02/2023 IMPRESSION: within normal limits Rbo Robles, Ph.D. [facility] Organization Address City/State/ZIP Co de Phone Number [facility] NA documented in this encounter Visit Diagnoses Diagnosis Asthma Chronic (HCC) documented in this encounter Care Teams Luggage Maker Relationship Specialty Start Date End Date Elsewhere, Pcp PCP - General Internal Medicine 12/30/22 documented as of this encounter
== END 2023-09-02 16:14 | disposition home or self-care (01) ==
LOC: MAMMO 16:14
PROVIDERS: PCP Family Medicine; Visit Provider Family Medicine
DX: Z12.31 Encounter for screening mammogram for malignant neoplasm of breast (principal)
CPT/HCPCS: 77063; 77067

== ENCOUNTER 2023-09-19 14:42 | Outpatient (CLI) | payer MEDICARE, BC, SELFPAY | END 2023-09-19 14:43 | disposition home or self-care (01) | PROVIDERS: PCP Family Medicine; Visit Provider Family Medicine | DX: E78.5 Hyperlipidemia, unspecified (principal); E55.9 Vitamin D deficiency, unspecified; Z11.59 Encounter for screening for other viral diseases | CPT/HCPCS: 80053; 80061; 82306; 86803 ==

== ENCOUNTER 2023-11-27 07:54 | Outpatient (CLI) | payer MEDICARE, BC, SELFPAY ==
--- OUTSIDE RECORDS SUMMARY | 2023-11-27 07:58 | XMS_ITS ---
Author Name Unknown Organization [facility] Address [address] [place] [address] Care Team Providers Care Senior Mortgage Loan Processor Name Role Phone Unavailable Unavailable Unavailable Surgery Details Not on file Complications Check Surgery Details section. Procedure Estimated Blood Loss Check Surgery Details section. Procedure Findings Check Surgery Details section. Procedure Specimens Taken Check Surgery Details section.
--- OUTSIDE RECORDS SUMMARY | 2023-11-27 07:58 | XMS_ITS | Clinical Summary ---
Author Name Unknown Organization [facility] Address [address] [place] [address] Care Team Providers Care Evp Marketing Name Role Phone Elsewhere, Pcp Primary Care Provider Unavailabl e Source Comments Patient records contain information from all sites at [facility]. For routine questions regarding patient records, call [phone] during business hours, M-F 8:00 AM - 5:00 PM Central Time. Record requests for emergency care only can be directed to [phone] at any time.[facility] Allergies Active Allergy Reactions Criticality Noted Date Comments Sulfa (Sulfonamide Antibiotics) Hives (Reselect Reaction) 11/12/2002 Medications Medication Sig Dispensed Refills Start Date End Date Status fexofenadine (WYATT) 180 mg tablet Take 1 tablet by mouth daily. 01/15/2013 Active olopatadine (PATANOL) 0.1 % ophthalmic solution 1 drop as needed. 01/15/2013 Active SUMAtriptan (IMITREX) 50 mg tablet Take 50 mg by mouth as needed for migraine. May repeat in 2 hours if no relief. Max 2 doses/24 hrs Active albuterol inhalerIndications :Asthma Mild Persistent (HCC) Inhale 1-2 puffs every 4 (four) hours as needed for wheezing or shortness of breath. 1 Inhaler 11 02/14/2020 Active alendronate (FOSAMAX) 70 mg tablet Take 70 mg by mouth once a week. 12/09/2022 Active cholecalciferol (VITAMIN D3) 1,250 mcg (50,000 Unit) capsule TAKE 1 CAPSULE BY MOUTH TWICE PER WEEK FOR 12 WEEKS 12/09/2022 Active estradioL (ESTRACE) 0.1 mg/g (0.01%) vaginal cream USE 1/2 APPLICATORFUL VAGINALLY DAILY THEN ONE TO 2 TIMES WEEKLY 12/11/2022 Active NITROFURANTOIN MONOHYD/M-CRYST ORAL Take 100 mg by mouth 2 (two) times a week. 08/14/2022 Active budesonide-formote roL (Symbicort) 160-4.5 mcg/actuation [...] Asthma Non Allergic Intrinsic Encounters Date Type Department Care Team Description 09/22/2023 Orders Only Division of Gastroenterology in [place], [place] [address] [place] [phone] Pete Vance M.D. Genetic Susceptibility To Disease from Last 3 Months Immunizations Name Administration [...] Used Date Smoking Tobacco: Former Cigarettes 0.3 22 0 08/02/1973 - 07/28/1995 Smokeless Tobacco: Never [...] How often do you attend chur or moravian services? More than 4 times per year 02/04/2022 Do you belong to any clubs o r organizations such as adventism groups, unions, fraternal [...] and heating? Not hard at all 02/04/2022 [facility] of Occupat ional Health - Occupational Stress [...] place to sleep or slept in a care home (including now)? No 02/04/2022 Nutrition Answer [...] (Osteoporo sis Screen) 1957 CT Colonography 1957 Cologuard 1957 Colonoscopy 1957 Colorectal Cancer Surveillance 1957 Fasting Glucose for Diabetes Screening 1957 Hepatitis C Screening 1955 Mammogram 1957 Pneumococcal vaccine (65+ ye ars) (1 of 2 - PCV) 10/16/1963 Zoster Vaccines (1 of 2) 10/16/2007 DTaP,Tdap,and Td Vaccines (2 - Td or Tdap) 04/09/2021 04/09/2011, 08/05/2007 Depression Screening (Annual PHQ-2) 07/28/2023 Fall Risk Screen (Annual) 07/28/2023 COVID-19 Vaccine (2022- 4 season) 2023 04/22/2023, 05/05/2022, 11/06/2021, Additional history exists Influenza Vaccine Completed 04/22/2023, , 05/10/2021, Additional history exists Care Teams Evp Marketing Relationship Specialty Start Date End Date Elsewhere, Pcp PCP - General Internal Medicine 12/30/22
--- OUTSIDE RECORDS SUMMARY | 2023-11-27 07:58 | XMS_ITS | Referral Summary ---
Author Name Unknown Organization [facility] Address [address] [place] [address] Care Team Providers Care Supervisor Scenic Arts Name Role Phone Elsewhere, Pcp Primary Care Provider Unavailabl e Source Comments Patient records contain information from all sites at [facility]. For routine questions regarding patient records, call [phone] during business hours, M-F 8:00 AM - 5:00 PM Central Time. Record requests for emergency care only can be directed to [phone] at any time.[facility] Encounters Date Type Department Care Team Description 09/22/2023 Orders Only Division of Gastroenterology in [place], [place] [address] [place] [address] Pete Vance M.D. Genetic Susceptibility To Disease from Last 3 Months Allergies Active Allergy Reactions Criticality Noted Date [...] How often do you attend chur or mu-ism services? More than 4 times per year 02/04/2022 Do you belong to any clubs o r organizations such as scientologist groups, unions, fraternal [...] and heating? Not hard at all 02/04/2022 [facility] Questionnaire Answer Date [...] or slept in a fpc (including now)? No 02/04/2022 Nutrition Answer Date [...] of Treatment Not on file Care Teams Supervisor Scenic Arts Relationship Specialty Start Date End Date Elsewhere, Pcp PCP - General Internal Medicine 12/30/22
--- OUTSIDE RECORDS SUMMARY | 2023-11-27 07:58 | XMS_ITS | Encounter Summary ---
Author Name Unknown Organization [facility] Address [address] [place] [id number] Care Team Providers Care Education Dean Name Role Phone Elsewhere, Pcp Primary Care Provider Unavailabl e Encounter Details Date Type Department Care Team (Late st Contact Info) Description 09/22/2023 Orders Only Division of Gastroenterology in [place], [place] [address] [place] [address] Pete Vance M.D. [address] [place] [address] Genetic Susceptibility To Disease Social History Tobacco Use Types Packs/Day Years [...] How often do you attend chur or oriental orthodox services? More than 4 times per year 02/04/2022 Do you belong to any clubs o r organizations such as hindu groups, unions, fraternal or athletic groups, or [...] and heating? Not hard at all 02/04/2022 [facility] - Occupational Stress [...] or slept in a usp (including now)? No 02/04/2022 Nutrition Answer Date [...] Procedure Name Priority Date/Time Associated Diagnosis Comments EXT TAPESTRY Routine 12/11/2022 12:00 AM CDT Genetic Susceptibility To Disease documented in this encounter Results * EXT Tapestry (12/11/2022 12:00 AM CDT) Gene Studied BRCA1,BRCA2,MLH1,MSH 2, MSH6,PMS2,EPCAM,APOB,L DLR,LDLRAP1,PCSK9 01/09/2023 12:00 AM CDT [facility] Genetic Disease Assessed Evaluation of 11 genes associated with Hereditary Breast and Ovarian Cancer, Phelan Syndrome and Familial Hypercholesterolemia. 01/09/2023 12:00 AM CDT [facility] Genetic Analysis Overall Interpretation Negative results through Tapestry do not replace diagnostic testing for patients with a personal or family history of cancer/hypercholestero lemia due to limitations with methodology. Consider a referral to a genetic counselor for diagnostic testing if warranted. 01/09/2023 12:00 AM CDT [facility] Genetic Analysis Report See Tapestry PDF Report No actionable gene changes were detected in the genes that cause Familial Hypercholesterolemia. The genes tested for this condition were APOB, LDLR, LDLRAP1, and PCSK9.No actionable gene changes were detected in the genes that cause Hereditary Breast and Ovarian Cancer. The genes tested for this condition were BRCA1 and BRCA2.No actionable gene changes were detected in the genes that cause Phelan Syndrome. The genes tested for this condition were MLH1, MSH2, MSH6, PMS2 and EPCAM. DNA extracted from this individual's sample was captured and enriched using a custom set of reagents ([employer]+ chemistry). Targeted regions were sequenced using an Illumina DNA sequencing system. Your sequence was matched to a modified version of the [employer]ageezi standard reference genome (GRCh38). Variant calling was completed using a customized version of [employer] software, requiring 20x coverage for validated variant calls. Copy Number Variants (CNVs) were called using a proprietary bioinformatics pipeline that compared the coverage profile of your sample with the coverage profiles of other reference set samples. [facility] then analyzed the generated variant data for the exons and 10 bp of flanking intronic sequence (and select tagged intronic variants) of the 11 genes included in [employer] from the [employer] Database. Your sample was reviewed for single nucleotide variants (SNVs), indels up to 20 bp in length, and CNVs that are known or predicted to be actionable. NOTE: This assay has limited sensitivity to CNVs smaller than a few exons. APOB, PCSK9, and LDLR interpretation and reporting is specific to the Familial Hypercholesterolemia phenotype. Variants associated with other phenotypes such as Hypobetalipoproteinemi a are not included. Some known complex variants like the inversion of exons 1-7 in the MSH2 gene (Jillian inversion), exons 11-15 of the PMS2 gene, or variants within or immediately adjacent to long homopolymer runs are not analyzed or reported. There are regions that are not covered, such as deep intronic, promoter, and enhancer regions. This assay cannot detect all variants known to increase disease risk. Other clinical diagnostic testing for these conditions could identify variants not detected by this test. If you have had previous testing, these results should be taken into consideration during risk assessments and medical management. 01/09/2023 12:00 AM CDT [facility] Human Reference Sequence Assembly GRCh38 01/09/2023 12:00 AM CDT [facility] Saliva (Mouth) 12/11/2022 Pete Vance M.D. LAB GENETI C TESTING [facility] [employer] [id number], [address] [place] [address], [facility] [employer] [address], [address]. [place] [address] documented in this encounter Visit Diagnoses Diagnosis Genetic Susceptibility To Disease documented in this encounter Care Teams Education Dean Relationship Specialty Start Date End Date Elsewhere, Pcp PCP - General Internal Medicine 12/30/22 documented as of this encounter
--- NOTE | 2023-11-27 08:15 | US_ITS ---
Patient: SOL LONG Facility:?[facility] RIS Patient ID:?[id number] Site Patient ID:?[id number]. Site :?[id number] Study:?US-Abdomen/Pelvis AAA SCREENING-11/27/2023 8:24:53 AM Ordering Physician:?ADIEL Grigsby M.D. Final Report: Examination: US abdominal aorta Indication: Abdominal aortic aneurysm screening. Technique: Ulrich scale and color Doppler images of the aorta and common iliac arteries are obtained. Comparison: None Findings: Proximal aorta: 2.0 x 2.2 cm Mid aorta: 1.6 x 1.9 cm Distal aorta: 1.4 x 1.8 cm Right common iliac artery: 0.9 x 1.0 cm Left common iliac artery: 1.0 x 1.0 cm Impression: No abdominal aortic aneurysm. Dictated by Ronnie Esquivel MD @ 11/27/2023 11:03:29 AM Signed by:?Ronnie Esquivel MD @11/27/2023 11:03:29 AM (Electronic Signature)
== END 2023-11-27 07:55 | disposition home or self-care (01) ==
LOC: US 07:55
PROVIDERS: PCP Family Medicine; Visit Provider Family Medicine
DX: Z13.6 Encounter for screening for cardiovascular disorders (principal); Z87.891 Personal history of nicotine dependence
CPT/HCPCS: 76706

== ENCOUNTER 2024-09-13 09:49 | Outpatient (CLI) | payer MEDICARE, BC, SELFPAY ==
--- NOTE | 2024-09-13 09:45 | CRLHL7_ITS ---
For Patients: As a result of the Century Cures Act, medical imaging exams and procedure reports are released immediately into your electronic medical record. You may view this report before your referring provider. If you have questions, please contact your health care provider. BILATERAL SCREENING MAMMOGRAM WITH COMPUTER-AIDED DETECTION AND TOMOSYNTHESIS TECHNIQUE: CC and MLO views were obtained. These mammographic images have been obtained using full-field digital technique. These mammographic images were interpreted with the benefit of computer-aided detection. Breast Tomosynthesis was used in this interpretation. COMPARISON FILM: 09/02/23, 07/05/22, 06/13/21. FINDINGS: There are scattered areas of fibroglandular density. IMPRESSION: There is no radiographic evidence for malignancy. ASSESSMENT: BI-RADS Category 1: Negative RECOMMENDATION: Routine screening mammogram in 1 year. A lay language report of this examination will be provided to the patient. Ronnie Esquivel M.D. Diagnostic Radiologist [email or web address] SP/Dictated by: Ronnie Esquivel MD @ 09/20/2024 9:36:00 AM (Electronically Signed)
== END 2024-09-13 09:50 | disposition home or self-care (01) ==
LOC: MAMMO 09:50
PROVIDERS: PCP Family Medicine; Visit Provider Family Medicine
DX: Z12.31 Encounter for screening mammogram for malignant neoplasm of breast (principal)
CPT/HCPCS: 77063; 77067

== ENCOUNTER 2024-09-20 13:17 | Outpatient (CLI) | payer MEDICARE, BC, SELFPAY ==
[2024-09-23 11:14] LABS: HPV Source Endocervical; HPV, High Risk by TMA Not Detected
[2024-09-28 15:38] LABS: Pap Test Reviewed by Path Done
== END 2024-09-20 13:18 | disposition home or self-care (01) ==
PROVIDERS: PCP Family Medicine; Visit Provider Family Medicine
DX: E78.5 Hyperlipidemia, unspecified (principal); R73.03 Prediabetes; Z12.4 Encounter for screening for malignant neoplasm of cervix; Z11.51 Encounter for screening for human papillomavirus (HPV)
CPT/HCPCS: 80053; 80061; 87624; 87625; 88141; 88142

== ENCOUNTER 2024-12-02 12:46 | Outpatient (CLI) | payer MEDICARE, BC, SELFPAY ==
--- NOTE | 2024-12-02 13:00 | CRLHL7_ITS ---
For Patients: As a result of the Century Cures Act, medical imaging exams and procedure reports are released immediately into your electronic medical record. You may view this report before your referring provider. If you have questions, please contact your health care provider. XR DXA Bone Mineral Density (BMD) Reason for exam: Known osteoporosis. Current height (in): 62. Weight (lb): 135. Menopause age: 54. Ethnicity: White. 1. Have you had a previous hip or vertebral fracture? No. 2. Have you had any fractures during your adult life which did not result from significant trauma (e.g., auto accident)? No. 3. Did either of your parents have a hip fracture? No. 4. Do you smoke? No. 5. Have you ever taken Glucocorticoids? No. 6. Do you have rheumatoid arthritis? No. 7. Do you have secondary osteoporosis? No. 8. Do you drink 3 or more alcoholic drinks per day? No. 9. Are you being treated for osteoporosis? No. 10. Have you ever taken any of the following medications: Actonel, Evista, Fosamax, Miacalcin, Reclast, Boniva, Forteo, HRT (i.e., estrogen/hormone therapy), Protelos, Prolia, Vitamin D, Calcium, other ??? please specify. ANSWER: Yes, Fosamax (i.e., alendronate), vitamin D, HRT (i.e., estrogen/hormone therapy), and calcium. 11. Do you have any of the following medical conditions: Anorexia or bulimia, asthma or emphysema, end stage renal disease, hyperparathyroidism, any seizure disorders, cancer, inflammatory bowel diseases, hysterectomy, other ??? please specify. ANSWER: Yes, asthma or emphysema. 12. What was your maximum height (inches)? 64. 13. Do you perform weight bearing exercise regularly? No. 14. Do you regularly consume dairy products? Yes. 15. Do you drink caffeinated beverages? Yes. 16. At what age did your period start? 16. 17. Are you premenopausal? No. 18. How many full-term pregnancies have you had? 3. 19. Have you ever missed your period for more than 6 months in a row (not including or menopause)? No. TECHNIQUE: Bone mineral density study was performed using the [employer]Dx. FINDINGS: The results of the study expressed as bone mineral density (BMD) are as follows: Lumbar spine L1 to L4: BMD: 0.956 g/cm2. T-score: -0.8. Z-score: 1.1 Neck Left: BMD: 0.555 g/cm2. T-score: -2.6. Z-score: -1.0 Right: BMD: 0.621 g/cm2. T-score: -2.1. Z-score: -0.4 Total Left: BMD: 0.733 g/cm2. T-score: -1.7. Z-score: -0.4 Right: BMD: 0.838 g/cm2. T-score: -0.9. Z-score: 0.5 IMPRESSION: Osteoporosis. *Comparison exams done prior to 12/2019 were performed on different unit, [facility]. COMPARISON: Compared with scan of 11/27/2022, the bone mineral density has increased by 6.1 percent at the spine and increased by 8.9 percent at the hip. Ronnie Esquivel M.D. Diagnostic Radiologist [email or web address] tian/Dictated by: Ronnie Esquivel MD @ 12/03/2024 12:45:00 PM (Electronically Signed)
== END 2024-12-02 12:47 | disposition home or self-care (01) ==
LOC: RAD 12:48
PROVIDERS: PCP Family Medicine; Visit Provider Family Medicine
DX: M81.0 Age-related osteoporosis without current pathological fracture (principal)
CPT/HCPCS: 77080